=== PATIENT | female | born 1960 | race Caucasian/White ===

== ENCOUNTER → 2020-06-11 12:22 | Outpatient (CLI) | payer OTHER, SELFPAY ==
--- NOTE | ~2020-06-11 | MR_ITS ---
EXAMINATION: MR brain/brain stem wo con DATE: 06/11/2020 13:15 INDICATION: Right arm tingling. Left eye vision loss. TECHNIQUE: Magnetic resonance imaging (MRI) of the brain and brainstem was performed without intraven ous contrast. Sequences included sagittal and axial T1-weighted FSE, axial diffusion-weighted FS EPI, axial T2*-weighted GRE, axial T2-weighted FLAIR Propeller, and axial T2-weighted Propeller. Apparent diffusion coefficient (ADC) maps were created. COMPARISON: Head CT 12/09/2011 FINDINGS: There is an old infarct involving right parietal occipital region. There are scattered area s of low attenuation in the cerebral white matter and cecilia. There is no intracranial hemorrhage, acut e infarction, or abnormal intracranial mass lesion. The ventricles are normal in size. There are like ly changes of ocular lens replacement surgeries. There are bilateral mastoid effusions. IMPRESSION: 1. 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 2. Moderate nonspecific cerebral white matter disease and pontine disease, which likely represents ch ronic small vessel ischemic disease. Reviewed, dictated and finalized at location B. IMPRESSION: 1. 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 2. Moderate nonspecific cerebral white matter disease and pontine disease, whic h likely represents chronic small vessel ischemic disease.
--- NOTE | ~2020-06-11 | CT_ITS ---
EXAMINATION:CT lung screening DATE: 06/11/2020 13:28 INDICATION: Personal history of tobacco dependence. Current smoker with 53 pack year history. TECHNIQUE: Computed tomography (CT) of the chest was performed without intravenous contrast. Automate d exposure control and iterative reconstruction technique were employed. The dose-length product (DLP ) was 84.73 mGy-cm. COMPARISON: CT abdomen and pelvis 04/23/2010 FINDINGS: There is mild emphysema. There is mild atelectasis in right middle lobe. There is a 6 mm pa rt solid nodule in right lower lobe. There is a 4 mm groundglass nodule in right lower lobe. There is a 3 mm nodule in left lower lobe. There is a 2 mm nodule in right upper lobe. No pleural effusion. T he heart size is normal. There are coronary artery calcifications. No pericardial effusion. There is a mildly enlarged right paratracheal lymph node, likely reactive. There is a chronic compression frac ture of T11. There is severe cervical spondylosis and mild thoracic spondylosis. IMPRESSION: 1. Lung-RADS category 2: Benign appearance or behavior. Continue annual screening with noncontrast lo w-dose chest CT in 12 months. Reviewed, dictated and finalized at location B. IMPRESSION: 1. Lung-RADS category 2: Benign appearance or behavior. Continue annual screeni ng with noncontrast low-dose chest CT in 12 months.
== END ==
PROVIDERS: PCP Family Medicine; Visit Provider Family Medicine
DX: Z12.2 Encounter for screening for malignant neoplasm of respiratory organs (principal); Z87.891 Personal history of nicotine dependence; R93.0 Abnormal findings on diagnostic imaging of skull and head, not elsewhere classified
CPT/HCPCS: 70551; G0297

== ENCOUNTER 2022-08-02 11:15 | Emergency (ER) | payer OTHER, SELFPAY ==
--- NOTE | ~2022-08-02 | CT_ITS ---
EXAMINATION: CT thoracic lumbar wo con DATE: 08/02/2022 13:14 INDICATION: Back pain. Fall. TECHNIQUE: Computed tomography (CT) of the thoracic and lumbar spine was performed without intravenou s contrast. Automated exposure control and iterative reconstruction technique were employed. The dose -length product was 978.85 mGy-cm. COMPARISON: CT chest 06/11/2020 FINDINGS: CT THORACIC SPINE: There are small pleural effusions. There is 7 degrees levocurvature of upper thora cic spine. There is a chronic burst fracture of superior endplate of T11 with retropulsion of bone 3 mm into central spinal canal. There is severe cervical spondylosis. There is moderately decreased dis c height at T11-T12 with endplate remodeling. There is multilevel facet joint osteoarthritis, severe bilaterally at T10-T11. On the right, there is mild neural foraminal stenosis at T10-T11. On the left , there is mild neural foraminal stenosis at T10-T11. There is mild central canal stenosis at T10-T11 and T11-T12. CT LUMBAR SPINE: Bone alignment is normal. There is a chronic compression fracture of L3 with 2/5 los s of height centrally. There is mildly decreased disc height at L2-L3. The following disc levels are specifically discussed: L1-L2: The disc does not extend beyond the endplate margin. There is mild right and moderate left fac et joint osteoarthritis. There is no neural foraminal stenosis. There is no central canal stenosis. L2-L3: The disc is bulging. There is severe bilateral facet joint osteoarthritis. There is mild bilat eral neural foraminal stenosis. There is mild central canal stenosis. L3-L4: The disc is bulging. There is severe bilateral facet joint osteoarthritis. There is mild bilat eral neural foraminal stenosis. There is mild central canal stenosis. L4-L5: The disc is bulging. There is severe bilateral facet joint osteoarthritis. There is moderate r ight and mild left neural foraminal stenosis. There is mild central canal stenosis. There is moderate stenosis of the lateral recesses. L5-S1: The disc is bulging. There is severe bilateral facet joint osteoarthritis. There is mild bilat eral neural foraminal stenosis. There is no central canal stenosis. IMPRESSION: 1. Moderate thoracic spondylosis. 2. Moderate lumbar spondylosis. 3. Small pleural effusions. Reviewed, dictated and finalized at location B.
[2022-08-02 11:24] VITALS: BP 144/52; PULSE 85; RESP 18; TEMP 36.7; O2SAT 97
--- NOTE | 2022-08-02 12:38 | ED.BACK ---
HPI - Back Pain/Injury General Chief Complaint: Back Pain/Injury Stated Complaint: back injury Time Seen by Provider: 08/02/22 11:58 History of Present Illness HPI Narrative: This is a 62-year-old female with past medical history of peripheral vascular disease status post bilateral lower extremity [id number] amputations, who presents emergency department complaining of low back pain beginning last night. Patient states she was transferring from her wheelchair to her bed last night when she fell backwards, landing on her bottom and did not strike her head. She denies loss of conscious. This morning shortly after waking, she twisted, felt a pop (her at bedside says he also heard the pop) with immediate pain. The pain has gradually improved, she denies radiation to the legs or loss of control of bowel or bladder. Related Data Allergies Allergy/AdvReac Type Severity Reaction Status Date / Time No Known Allergies Allergy Verified 08/02/22 11:39 Review of Systems Review of Systems: CONSTITUTIONAL: Denies fever, chills, or sweats. CARDIOVASCULAR: Denies chest pain, palpitations, or edema. RESPIRATORY: Denies cough or dyspnea. GASTROINTESTINAL: Denies abdominal pain, nausea, vomiting, or diarrhea. GENITOURINARY: Denies dysuria or hematuria. SKIN: Denies rash or itching. MUSCULOSKELETAL: back pain improving, Denies joint pain, or myalgia. NEUROLOGIC: Denies headache, numbness, dizziness, or weakness. PSYCHIATRIC: Denies anxiety or depression. [facility] Past Medical History Medical History (Updated 08/02/22 @ 22:18 by Stiven Mccray MD) History of left above knee amputation History of right above knee amputation Surgical History Surgical History (Updated 08/02/22 @ 22:23 by Stiven Mccray MD) S/P femoral-femoral bypass surgery Social History Social History (Updated 08/02/22 @ 22:17 by Stiven Mccray MD) Smoking status: Former smoker Alcohol intake: former Substance use: never Comments Surgical history: Lef AKA 2019, Righ AKA 2019 Exam Narrative: GENERAL: Well-appearing, well-nourished, and in no acute distress. HEAD: Normocephalic, atraumatic. EYES: PERRLA and EOMI. ENT: Nares clear, no rhinorrhea or epistaxis. Mucous membranes moist. Oropharynx without tonsillar hypertrophy exudate or other lesions. NECK: Supple. No adenopathy or masses. No carotid bruits or JVD CHEST: Clear to auscultation. No respiratory distress. No wheezes rales or rhonchi HEART: Regular rate and rhythm. No murmur heard. Normal peripheral pulses. ABDOMEN: Soft, nontender, palpable, reducible hernia noted in the epigastrium, normal active bowel sounds. BACK: No midline spine tenderness, no step-off or crepitus to palpation, mild paraspinal tenderness on the left side at approximately L1 EXTREMITIES: Bilateral AKA's with well-healed surgical scars,range of motion at the hips bilaterally. No edema. SKIN: Warm, dry, no rash. NEURO: No focal deficits. Alert and oriented x3. PSYCH: Normal mood and affect. Course Course Emergency Course: 13:39 - CT thoracic and lumbar spine not concerning for fracture. Multiple disc bulges noted with incidental pleural effusion. Discussed findings with the patient and her . Discussed pain control and return precautions including signs/symptoms of spinal cord compression. Patient and her voiced understanding and are comfortable with the plan. All questions answered to their satisfaction. Vital Signs Vital signs: Vital Signs Temperature 98.1 F 08/02/22 11:24 Pulse Rate 85 08/02/22 11:24 Respiratory Rate 18 08/02/22 11:24 Blood Pressure 144/52 H 08/02/22 11:24 Pulse Oximetry 97 08/02/22 11:24 Oxygen Delivery Room Air 08/02/22 11:24 Temperature 98.1 F 08/02/22 11:24 Pulse Rate 85 08/02/22 11:24 Respiratory Rate 18 08/02/22 11:24 Blood Pressure 144/52 H 08/02/22 11:24 Pulse Oximetry 97 08/02/22 11:24 Oxygen Delivery Room Air 1
[2022-08-02] MEDS: LIDOCAINE 5% PATCH 1 PATCH TRANSDERM (13:19)
== END 2022-08-02 14:02 | disposition home or self-care (01) ==
PROVIDERS: Emergency Provider Preventive Medicine Aerospace Medicine; PCP Family Medicine
DX: M54.50 Low back pain, unspecified (principal); M51.36 Other intervertebral disc degeneration, lumbar region; M51.37 Other intervertebral disc degeneration, lumbosacral region; I73.9 Peripheral vascular disease, unspecified; Z89.612 Acquired absence of left leg above knee; Z89.611 Acquired absence of right leg above knee; Z87.891 Personal history of nicotine dependence; M47.816 Spondylosis without myelopathy or radiculopathy, lumbar region; M47.814 Spondylosis without myelopathy or radiculopathy, thoracic region; W05.0XXA Fall from non-moving wheelchair, initial encounter
CPT/HCPCS: 72128; 72131; 99284; A9270

== ENCOUNTER 2022-08-19 00:46 | Inpatient (IN) | payer OTHER, SELFPAY ==
[2022-08-19] VITALS (51 sets, daily range): BP systolic 98–153; BP diastolic 46–82; PULSE 46–82; RESP 12–35; TEMP 36.1–36.6; O2SAT 85–99; BMI 23.1
--- NOTE | ~2022-08-19 | XR_ITS ---
EXAMINATION: XR chest 1V portable INDICATION: Shortness of breath TECHNIQUE: Portable AP chest at 0912 hours COMPARISON: 08/19/2022 FINDINGS: There are persistent but improved interstitial and airspace opacities and lower lung zones. No pleural effusion or pneumothorax. The cardiomediastinal silhouette is normal. IMPRESSION: 1. Improving opacities of the lung bases, consistent with pulmonary edema versus pneumonia versus ate lectasis. Reviewed, dictated and finalized at location F. IMPRESSION: 1. Improving opacities of the lung bases, consistent with pulmonary edema versu s pneumonia versus atelectasis.
--- NOTE | ~2022-08-19 | XR_ITS ---
EXAMINATION: XR chest 1V portable DATE: 08/19/2022 03:59 INDICATION: Shortness of breath. Hypoxia. TECHNIQUE: frontal view of the chest was obtained. COMPARISON: Chest radiograph dated 03/14/16 FINDINGS: Mild increased interstitial and patchy airspace opacities in the bilateral lower lung zones. No pleur al effusion or pneumothorax. The cardiomediastinal silhouette is normal. IMPRESSION: 1. Mild interstitial and airspace opacities in the bilateral lower lung zones which could represent m ild pulmonary edema, pneumonia, atelectasis or some combination thereof. Reviewed, dictated and finalized at location A. IMPRESSION: 1. Mild interstitial and airspace opacities in the bilateral lower lung zones w hich could represent mild pulmonary edema, pneumonia, atelectasis or some combi nation thereof.
--- NOTE | ~2022-08-19 | NM_ITS ---
EXAMINATION: NM pulmonary perfusion DATE: 08/19/2022 15:09 INDICATION: Hypoxia TECHNIQUE: 5.2 mCi Tc-99m MAA by intravenous route. Scintigraphic images of the chest were obtained. COMPARISON: Chest radiograph dated 08/19/2022 FINDINGS: There is relatively homogeneous perfusion throughout the lungs. No discrete perfusion defects identi fied. IMPRESSION: 1. Low probability for pulmonary embolism. Reviewed, dictated and finalized at location A.
--- NOTE | 2022-08-19 01:17 | ECG_ITS ---
Measurements Intervals [place] Rate: 62 P: NM: 0 QRS: 41 QRSD: 89 T: 63 QT: 427 QTc: 436 Interpretive Statements SINUS RHYTHM WITH AV DISSOCIATION AND ACCELERATED JUNCTIONAL ESCAPE RHYTHM ABNORMAL RHYTHM ECG NO PREVIOUS ECG AVAILABLE FOR COMPARISON Electronically Signed On 08-19-2022 14:00:00 CDT by Warren Zhang M.D.
--- NOTE | 2022-08-19 01:47 | ED.SOB ---
HPI - SOB/Dyspnea General Chief Complaint: Shortness of Breath/Dyspnea Stated Complaint: short of breath Time Seen by Provider: 08/19/22 01:46 History of Present Illness HPI Narrative: History primarily obtained by the patient's spouse This is a 62-year-old female past medical history of peripheral vascular disease and diabetes, who presents to the emergency department complaining of shortness of breath for past 3 days. He states over the past 3 days she has had cough productive of sputum without blood, becoming worse today. He denies known sick contacts. States patient has not had any diarrhea or vomiting but has had some chills. The patient complains of shortness of breath but denies chest pain. Related Data Allergies Allergy/AdvReac Type Severity Reaction Status Date / Time No Known Allergies Allergy Verified 08/02/22 11:39 Review of Systems Review of Systems: CONSTITUTIONAL: Denies fever, chills, or sweats. EYES: Denies visual changes, redness, or discharge. ENT: Denies rhinorrhea, congestion, sore throat, or otalgia. CARDIOVASCULAR: Denies chest pain, palpitations, or edema. RESPIRATORY: Cough and dyspnea. GASTROINTESTINAL: Denies abdominal pain, nausea, vomiting, or diarrhea. GENITOURINARY: Denies dysuria or hematuria. SKIN: Denies rash or itching. MUSCULOSKELETAL: Denies back pain, joint pain, or myalgia. NEUROLOGIC: Denies headache, numbness, dizziness, or weakness. PSYCHIATRIC: Denies anxiety or depression. [facility] Past Medical History Medical History History of left above knee amputation History of right above knee amputation Surgical History Surgical History S/P femoral-femoral bypass surgery Social History Social History Smoking status: Former smoker Alcohol intake: former Substance use: never Exam Narrative: GENERAL: Well-developed, well-nourished, in moderate respiratory distress HEAD: Normocephalic, atraumatic. EYES: PERRLA and EOMI. ENT: Nares clear, no rhinorrhea or epistaxis. Mucous membranes moist. Oropharynx without tonsillar hypertrophy exudate or other lesions. NECK: Supple. No adenopathy or masses. No carotid bruits or JVD CHEST: Clear to auscultation. No respiratory distress. No wheezes rales or rhonchi HEART: Regular rate and irregular rhythm. No murmur heard. Normal peripheral pulses. ABDOMEN: Soft, nontender, nondistended, normal active bowel sounds. EXTREMITIES: Bilateral AKA's with well-healed surgical scars, normal range of motion. No edema. SKIN: Warm, dry, no rash. NEURO: No focal deficits. Alert and oriented x3. PSYCH: Normal mood and affect. Course Course Emergency Course: 05:20 - White blood cell count 25. Chest x-ray consistent with pneumonia. An appointment 7 (unknown baseline) sodium slightly decreased at 133. Troponin negative. Patient recently recovered from COVID approximately 3weeks ago. Discussed patient with hospitalist, Dr. Brady who accepts admission. Vital Signs Vital signs: Vital Signs Temperature 97.9 F 08/19/22 00:57 Pulse Rate 62 08/19/22 00:57 Respiratory Rate 20 08/19/22 00:57 Blood Pressure 117/48 L 08/19/22 00:57 Pulse Oximetry 92 08/19/22 00:57 Oxygen Delivery Room Air 08/19/22 00:57 Temperature 97.9 F 08/19/22 00:57 Pulse Rate 59 L 08/19/22 03:46 Respiratory Rate 19 08/19/22 03:46 Blood Pressure 127/76 08/19/22 04:46 Pulse Oximetry 96 08/19/22 04:47 Oxygen Delivery Nasal Cannula 08/19/22 02:31 Oxygen Flow Rate 6 08/19/22 02:31 MDM - SOB/Dyspnea MDM Narrative Medical decision making narrative: Plan: Labs, antibiotics, imaging, troponin, EKG, reassess Differential Diagnosis Differential diagnosis: Likely community acquired pneumonia, pulmonary embolism and other (COVID, flu, ACS, other) Lab Data Result diagrams:
--- NOTE | 2022-08-19 02:36 | PC.NURSE ---
Refusing second set of blood cultures at this time. Dr Mccray aware. No new orders received.
[2022-08-19 03:59] LABS: Basophils Absolute Auto 0.1 K/mm3 (0.0-0.1); Basophils Percent Auto 0.5 % (0.2-1.2); Eosinophils Absolute Auto 0.4 K/mm3 (0-0.3); Eosinophils Percent Auto 1.4 % (0-4.4); Hematocrit 27.9 % (37.0-47.0); Hemoglobin 9.1 g/dL (12.0-15.0); Immature Granulocyte Absolute 0.19 K/mm3 (0.00-0.031); Immature Granulocyte Percent A 0.7 % (0-0.5); Lymphocytes Absolute Auto 1.82 K/mm3 (0.9-3.2); Lymphocytes Percent Auto 7.1 % (18.3-44.2); Mean Corpuscular HGB Conc 32.6 g/dl (32-36); Mean Corpuscular Hemoglobin 29.9 pg (26-34); Mean Corpuscular Volume 91.8 fl (80-100); Mean Platelet Volume 8.2 fl (7.4-10.4); Monocytes Absolute Auto 1.9 K/mm3 (0.1-0.6); Monocytes Percent Auto 7.3 % (2.6-8.5); Neutrophils Absolute Auto 21.4 K/mm3 (1.3-6.7); Platelet Count Result 520 k/mm3 (150-375); Red Blood Count 3.04 M/mm3 (4.2-5.4); Red Cell Distribution Width 14.6 % (11.5-14.5); White Blood Count 25.8 K/mm3 (4.5-10.0)
[2022-08-19 04:27] LABS: INR 1.2; Prothrombin Time 14.6 Seconds (11.1-14.7)
[2022-08-19 04:28] LABS: Partial Thromboplastin Time 38.6 SECONDS (22.3-36.8)
[2022-08-19 04:29] LABS: Anion Gap 13 mmol/L (8-16); Aspartate Amino Transferase 28 U/L (14-36); Bilirubin,Total 0.2 mg/dL (0.2-1.3); Blood Urea Nitrogen 31 mg/dL (7-17); Calcium 8.8 mg/dL (8.4-10.2); Carbon Dioxide 24 mmol/L (22-30); Chloride 96 mmol/L (98-107); Estimated CRCL calculation 30 ml/min; Estimated Glomerular Filt Rate 31; Glucose 114 mg/dL (65-110); Sodium 133 mmol/L (137-145)
[2022-08-19 04:30] LABS: Alanine Aminotransferase 22 U/L (6-35); Albumin Level 3.7 g/dL (3.5-5.1); Alkaline Phosphatase 139 U/L (38-126)
[2022-08-19 04:49] LABS: Troponin I < 0.012 ng/mL (0.000-0.034)
--- NOTE | 2022-08-19 05:39 | PC.NURSE ---
noted patient states she had covid in the end of may which is less then 90 days from today no covid swab obtained
[2022-08-19 06:02] LABS: Lactic Acid Reflex 0.9 mmol/L (0.7-2.0)
[2022-08-19] MEDS: ALBUTEROL SULFATE NEB 2.5 MG/3 ML INH 5 MG INHALATION ×4 (06:52→21:27)
--- NOTE | 2022-08-19 07:09 | ADMGEN ---
This patient, Pamela Plata, was admitted to 3 [facility] Surg Room 307-01. Patient/family oriented to hospital policies and general routines including ID bracelet, bed and alarms, visiting hours, pain management, procedures, bathroom and other care routines, personal items, smoking policy, room service/diet, and visiting hours. Information on how to activate the Rapid Response Team has been discussed. Patient/Family are encouraged to report perceived risks to care and to ask questions if they do not understand what they are told or what they should do.
--- NOTE | 2022-08-19 08:27 | ECG_ITS ---
Measurements Intervals [place] Rate: 47 P: 91 [place]: 170 QRS: 72 QRSD: 91 T: 75 QT: 479 QTc: 425 Interpretive Statements SINUS BRADYCARDIA COMPARED TO ECG 08/19/2022 01:32:33 AV DISSOCIATION HAS RESOLVED Electronically Signed On 08-19-2022 14:05:46 CDT by Warren Zhang M.D.
[2022-08-19 08:37] LABS: Glucose Point of Care 110 mg/dl (65-105)
[2022-08-19 09:42] LABS: Influenza A QL RT-PCR Negative (Negative); Influenza B QL RT-PCR Negative (Negative); SARS-CoV-2 RNA PCR Negative
[2022-08-19] MEDS: TOLNAFTATE 1% POWDER 45 GM BTL 1 APPLIC TOPICAL (12:44)
--- NOTE | 2022-08-19 13:04 | PM.IMHP ---
H&P: HPI History of Present Illness Date/Time: 08/19/22 13:04 Chief Complaint: shortness of breath Narrative: This is a 62-year-old female With past medical history of peripheral vascular disease status post bilateral AKA presents to the ED with shortness of breath past there some and having cough with productive sputum. Denies any sick contact. No fever or chills. She was in moderate respiratory distress yesterday but feeling much better today. See was also wheezy. She does have history of underlying COPD due to longstanding history of smoking past. She is not smoking currently. She denies any chest pain. Review of Systems Review of Systems: - CONSTITUTIONAL: Denies weight loss, fever and chills. - HEENT: Denies changes in vision and hearing - RESPIRATORY: reports SOB and cough. - CV: Denies palpitations and CP. - GI: Denies abdominal pain, nausea, vomiting and diarrhea. - : Denies dysuria and urinary frequency. - MSK: Denies myalgia and joint pain. - SKIN: Denies rash and pruritus. - NEUROLOGICAL: Denies headache and syncope. - PSYCHIATRIC: Denies recent changes in mood. Denies anxiety and depression. [facility] Past Medical History Medical History (Updated 08/19/22 @ 13:06 by Norbert Romano MD) History of left above knee amputation History of right above knee amputation Surgical History Surgical History (Updated 08/19/22 @ 13:06 by Norbert Romano MD) S/P femoral-femoral bypass surgery Social History Social History Smoking status: Former smoker Alcohol intake: former Substance use: current Substance use type: marijuana Other substance usage details: maribel Spiritual care concerns: No Has the Lack of Transportation Kept You From Medical Appointments or From Getting Medications?: No Within the Past 12 Months, Were You Worried Whether Your Food Would Run Out Before You Got Money to Buy More?: Never True What is Your Housing Situation Today?: I Have Housing Are You Worried That in the Next 2 Months, You May Not Have Your Own Housing to Live In?: No Do You Have Trouble Paying Your Heating Or Electricity Bill?: No Do You Have Trouble Paying For Medicines?: No Are You Currently Unemployed and Looking for Work?: No Highest Level of Education Completed: High School Diploma/GED Do You Have Trouble With Childcare or the Care of a Family Member?: No Meds Home Medications and Allergies Home Medications Medication Instructions Recorded Confirmed Type lidocaine 5 % topical patch 1 patch topical DAILY #15 ea 08/02/22 Rx (Lidoderm) Allergies Allergy/AdvReac Type Severity Reaction Status Date / Time No Known Allergies Allergy Verified 08/02/22 11:39 Vital Signs Vital Signs - 24 hr 08/19/22 00:57 08/19/22 01:13 08/19/22 01:14 Temperature 97.9 F Pulse Rate 62 62 Respiratory Rate 20 19 Blood Pressure 117/48 L Pulse Oximetry 92 85 L 90 Oxygen Delivery Room Air Nasal Cannula Oxygen Flow Rate 5 08/19/22 01:16 08/19/22 02:31 08/19/22 01:32 Temperature Pulse Rate 62 Respiratory Rate Blood Pressure Pulse Oximetry 91 94 Oxygen Delivery Nasal Cannula Nasal Cannula Oxygen Flow Rate 5 6 08/19/22 01:24 08/19/22 01:30 08/19/22 02:30 Temperature Pulse Rate 62 62 56 L Respiratory Rate 22 H 20 14 Blood Pressure 99/59 L 102/62 Pulse Oximetry 89 L 89 L Oxygen Delivery Oxygen Flow Rate 08/19/22 02:43 08/19/22 01:22 08/19/22 01:23 Temperature Pulse Rate 59 L 59 L 61 Respiratory Rate 15 23 H 22 H Blood Pressure Pulse Oximetry 90 89 L Oxygen Delivery Oxygen Flow Rate 08/19/22 01:25 08/19/22 01:37 08/19/22 01:45 Temperature Pulse Rate 61 64 59 L Respiratory Rate 18 19 18 Blood Pressure 99/59 L Pulse Oximetry 90 Oxygen Delivery Oxygen Flow Rate 08/19/22 02:01 08/19/22 02:15 08/19/22 02:32 Temperature
[2022-08-19 16:56] LABS: NT Pro B Type Natriuretic Pept 5720 pg/mL (5-100)
[2022-08-19] MEDS: GABAPENTIN 300 MG CAPSULE PO (17:09)
[2022-08-19] MEDS: POTASSIUM CHLORIDE 20 MEQ TABLET.ER PO (17:10)
[2022-08-19] MEDS: carvediloL 12.5 MG TABLET PO (17:11)
[2022-08-19] MEDS: MAGNESIUM OXIDE 400 MG TABLET PO (17:11)
[2022-08-19] MEDS: FUROSEMIDE INJ 40 MG/4 ML VIAL IV PUSH (18:16)
[2022-08-19] MEDS: ATORVASTATIN 40 MG TABLET 80 MG PO (20:27)
[2022-08-20] VITALS (18 sets, daily range): BP systolic 105–140; BP diastolic 61–82; PULSE 51–88; RESP 16–20; TEMP 36.1–36.6; O2SAT 94–100
[2022-08-20] MEDS: ALBUTEROL SULFATE NEB 2.5 MG/3 ML INH 5 MG INHALATION ×4 (03:43→20:50)
[2022-08-20] MEDS: TOLNAFTATE 1% POWDER 45 GM BTL 1 APPLIC TOPICAL ×3 (06:01→21:20)
[2022-08-20] MEDS: IPRATROPIUM BR 0.02% INH SOLN 0.5 MG/2.5 ML VIAL INHALATION (08:17)
[2022-08-20] MEDS: GABAPENTIN 300 MG CAPSULE PO ×2 (09:38→17:25)
[2022-08-20] MEDS: FUROSEMIDE 40 MG TABLET PO (09:39)
[2022-08-20] MEDS: carvediloL 12.5 MG TABLET PO ×2 (09:39→17:24)
[2022-08-20] MEDS: POTASSIUM CHLORIDE 20 MEQ TABLET.ER PO ×2 (09:39→17:25)
[2022-08-20] MEDS: MAGNESIUM OXIDE 400 MG TABLET PO ×2 (09:39→17:25)
[2022-08-20] MEDS: ENOXAPARIN 30 MG/0.3 ML SYRINGE SUB-Q (09:39)
[2022-08-20] MEDS: LEVOTHYROXINE SODIUM 50 MCG TABLET PO (09:39)
[2022-08-20] MEDS: FOLIC ACID 1 MG TABLET PO (09:40)
[2022-08-20] MEDS: FERROUS SULFATE 324 MG TABLET PO (09:40)
[2022-08-20 12:36] LABS: Basophils Absolute Auto 0.1 K/mm3 (0.0-0.1); Basophils Percent Auto 0.7 % (0.2-1.2); Eosinophils Absolute Auto 0.2 K/mm3 (0-0.3); Eosinophils Percent Auto 1.8 % (0-4.4); Hematocrit 29.9 % (37.0-47.0); Hemoglobin 9.6 g/dL (12.0-15.0); Immature Granulocyte Absolute 0.09 K/mm3 (0.00-0.031); Immature Granulocyte Percent A 0.7 % (0-0.5); Lymphocytes Absolute Auto 1.23 K/mm3 (0.9-3.2); Lymphocytes Percent Auto 10.1 % (18.3-44.2); Mean Corpuscular HGB Conc 32.1 g/dl (32-36); Mean Corpuscular Hemoglobin 29.8 pg (26-34); Mean Corpuscular Volume 92.9 fl (80-100); Mean Platelet Volume 7.9 fl (7.4-10.4); Monocytes Absolute Auto 1.1 K/mm3 (0.1-0.6); Monocytes Percent Auto 8.7 % (2.6-8.5); Neutrophils Absolute Auto 9.4 K/mm3 (1.3-6.7); Platelet Count Result 445 k/mm3 (150-375); Red Blood Count 3.22 M/mm3 (4.2-5.4); Red Cell Distribution Width 14.4 % (11.5-14.5); White Blood Count 12.1 K/mm3 (4.5-10.0)
[2022-08-20 12:46] LABS: Alanine Aminotransferase 28 U/L (6-35); Albumin Level 3.6 g/dL (3.5-5.1); Alkaline Phosphatase 118 U/L (38-126); Anion Gap 13 mmol/L (8-16); Aspartate Amino Transferase 30 U/L (14-36); Bilirubin,Total 0.2 mg/dL (0.2-1.3); Blood Urea Nitrogen 24 mg/dL (7-17); Calcium 8.8 mg/dL (8.4-10.2); Carbon Dioxide 25 mmol/L (22-30); Chloride 97 mmol/L (98-107); Estimated CRCL calculation 41 ml/min; Estimated Glomerular Filt Rate 50; Glucose 120 mg/dL (65-110); Potassium 3.2 mmol/L (3.4-5.0); Sodium 135 mmol/L (137-145)
--- NOTE | 2022-08-20 15:12 | PM.IMPN ---
Progress Note: A&P Assessment and Plan (1) Community acquired pneumonia: Code(s): J18.9 - Pneumonia, unspecified organism Status: Acute (2) Hypoxia: Code(s): R09.02 - Hypoxemia Status: Acute (3) History of right above knee amputation: Code(s): Z89.611 - Acquired absence of right leg above knee Status: Acute (4) History of left above knee amputation: Code(s): Z89.612 - Acquired absence of left leg above knee Status: Acute (5) S/P femoral-femoral bypass surgery: Code(s): Z95.828 - Presence of other vascular implants and grafts Status: Acute (6) Type 2 diabetes mellitus: Code(s): E11.9 - Type 2 diabetes mellitus without complications Status: Acute (7) Peripheral vascular disease: Code(s): I73.9 - Peripheral vascular disease, unspecified Status: Acute Plan acute hypoxic respiratory failure: WBC count elevated with chest x-ray showing mild interstitial airspace opacities bilateral lower could represent mild pulmonary edema pneumonia atelectasis or combination. BNP checked which came back elevated at 5000. She was started on antibiotics for community-acquired pneumonia also added vancomycin due to her history of MRSA infection. WBC count quite elevated at 25,000 five thousand on admission. She has refused for the labs but upon further counseling and discussion she is agreeable. Continue on antibiotics currently. Blood cultures no growth to date. Continue to follow. Hit she is advised will need to continue to monitor blood culture and monitor labs to ensure improvement in further tapering of her antibiotics for her underlying pneumonia. She also received 1 dose of Lasix with good diuresis for elevated BNP and possible congestion/mild pulmonary edema on chest x-ray. Hypoxia needing oxygen supplementation by nasal cannula. Currently a 7 L oxygen. V/Q scan came back low probability. WBC count improved down to 12,000 today. Renal function creatinine clearance of 30 creatinine 1.7. Lactic acid is normal, Troponin is negative. Influenza and COVID swab came negative. Renal function improved down to 1.1 today. Peripheral vascular disease status post bypass surgery Chronic anemia stable at 9.6 no signs of bleeding. Unknown baseline level Bilateral AKA DVT prophylaxis Lovenox Code status full code Subjective Date/time seen: 08/20/22 15:12 Interval history: HPI:This is a 62-year-old female With past medical history of peripheral vascular disease status post bilateral AKA presents to the ED with shortness of breath past there some and having cough with productive sputum.? Denies any sick contact.? No fever or chills.? She was in moderate respiratory distress yesterday but feeling much better today.? See was also wheezy.? She does have history of underlying COPD due to longstanding history of smoking past.? She is not smoking currently.? She denies any chest pain. 08/20/2022 patient refused any further steak for lab. Initially was requesting for midline/PICC line placement. Reviewed risks and benefits with the patient and the was at bedside. She had rather complicated history in the past with history of MRSA infection offer vascular graft for her underlying history of peripheral vascular disease that needed removal. Her IV line has also infiltrated and needs a new 1. She however feels lot better she is off oxygen today and feels much better. She states she is ready to go home. She does have cough. Review of Systems Review of Systems: All systems reviewed & are unremarkable except as noted in HPI and below Exam Narrative: GENERAL: Well-developed, well-nourished, in No acute distress HEAD: Normocephalic, atraumatic. EYES: PERRLA and EOMI. ENT: Nares clear, no rhinorrhea or epistaxis.? Mucous membranes moist. NECK: Supple.? No adenopathy or masses.? No carotid bruits or JVD CHEST: Equal air entry bilaterally, clear to auscultation No resp
[2022-08-20] MEDS: POTASSIUM CHLORIDE 20 MEQ TABLET 40 MEQ PO (15:33)
[2022-08-20] MEDS: ATORVASTATIN 40 MG TABLET 80 MG PO (21:19)
[2022-08-21] VITALS (23 sets, daily range): BP systolic 90–144; BP diastolic 47–90; PULSE 51–71; RESP 16–20; TEMP 35.5–36.8; O2SAT 92–96
[2022-08-21] MEDS: ALBUTEROL SULFATE NEB 2.5 MG/3 ML INH 5 MG INHALATION ×4 (02:46→20:51)
[2022-08-21] MEDS: LEVOTHYROXINE SODIUM 50 MCG TABLET PO (05:54)
[2022-08-21] MEDS: GABAPENTIN 300 MG CAPSULE PO ×2 (06:04→17:16)
[2022-08-21 06:36] LABS: Basophils Absolute Auto 0.1 K/mm3 (0.0-0.1); Basophils Percent Auto 0.8 % (0.2-1.2); Eosinophils Absolute Auto 0.4 K/mm3 (0-0.3); Eosinophils Percent Auto 3.1 % (0-4.4); Hematocrit 29.9 % (37.0-47.0); Hemoglobin 9.6 g/dL (12.0-15.0); Immature Granulocyte Absolute 0.12 K/mm3 (0.00-0.031); Immature Granulocyte Percent A 0.9 % (0-0.5); Lymphocytes Absolute Auto 1.92 K/mm3 (0.9-3.2); Lymphocytes Percent Auto 14.5 % (18.3-44.2); Mean Corpuscular HGB Conc 32.1 g/dl (32-36); Mean Corpuscular Volume 93.4 fl (80-100); Monocytes Absolute Auto 1.3 K/mm3 (0.1-0.6); Monocytes Percent Auto 10.1 % (2.6-8.5); Neutrophils Absolute Auto 9.4 K/mm3 (1.3-6.7); Neutrophils Percent Auto 70.6 % (45.5-73.1); Platelet Count Result 488 k/mm3 (150-375); Red Cell Distribution Width 14.6 % (11.5-14.5); White Blood Count 13.3 K/mm3 (4.5-10.0)
[2022-08-21 06:49] LABS: Alanine Aminotransferase 30 U/L (6-35); Albumin Level 3.5 g/dL (3.5-5.1); Alkaline Phosphatase 132 U/L (38-126); Anion Gap 9 mmol/L (8-16); Aspartate Amino Transferase 38 U/L (14-36); Bilirubin,Total 0.2 mg/dL (0.2-1.3); Blood Urea Nitrogen 29 mg/dL (7-17); Calcium 9.2 mg/dL (8.4-10.2); Carbon Dioxide 26 mmol/L (22-30); Chloride 100 mmol/L (98-107); Estimated CRCL calculation 41 ml/min; Estimated Glomerular Filt Rate 50; Glucose 115 mg/dL (65-110); Magnesium 1.8 mg/dL (1.6-2.3); Potassium 4.6 mmol/L (3.4-5.0); Sodium 135 mmol/L (137-145)
[2022-08-21] MEDS: carvediloL 12.5 MG TABLET PO ×2 (08:42→17:16)
[2022-08-21] MEDS: FERROUS SULFATE 324 MG TABLET PO (08:43)
[2022-08-21] MEDS: FUROSEMIDE 40 MG TABLET PO (08:43)
[2022-08-21] MEDS: MAGNESIUM OXIDE 400 MG TABLET PO ×2 (08:43→17:16)
[2022-08-21] MEDS: POTASSIUM CHLORIDE 20 MEQ TABLET.ER PO ×2 (08:43→17:16)
[2022-08-21] MEDS: ENOXAPARIN 30 MG/0.3 ML SYRINGE SUB-Q (08:43)
[2022-08-21] MEDS: FOLIC ACID 1 MG TABLET PO (08:43)
[2022-08-21] MEDS: TOLNAFTATE 1% POWDER 45 GM BTL 1 APPLIC TOPICAL ×2 (08:54→21:10)
--- NOTE | 2022-08-21 13:45 | PM.IMPN ---
Progress Note: A&P Assessment and Plan (1) Community acquired pneumonia: Code(s): J18.9 - Pneumonia, unspecified organism Status: Acute (2) Hypoxia: Code(s): R09.02 - Hypoxemia Status: Acute (3) History of right above knee amputation: Code(s): Z89.611 - Acquired absence of right leg above knee Status: Acute (4) History of left above knee amputation: Code(s): Z89.612 - Acquired absence of left leg above knee Status: Acute (5) S/P femoral-femoral bypass surgery: Code(s): Z95.828 - Presence of other vascular implants and grafts Status: Acute (6) Type 2 diabetes mellitus: Code(s): E11.9 - Type 2 diabetes mellitus without complications Status: Acute (7) Peripheral vascular disease: Code(s): I73.9 - Peripheral vascular disease, unspecified Status: Acute Plan acute hypoxic respiratory failure: WBC count elevated with chest x-ray showing mild interstitial airspace opacities bilateral lower could represent mild pulmonary edema pneumonia atelectasis or combination. BNP checked which came back elevated at 5000. She was started on antibiotics for community-acquired pneumonia also added vancomycin due to her history of MRSA infection. WBC count quite elevated at 25,000 five thousand on admission. She has refused for the labs but upon further counseling and discussion she is agreeable. Continue on antibiotics currently. Blood cultures no growth to date. Continue to follow. Hit she is advised will need to continue to monitor blood culture and monitor labs to ensure improvement in further tapering of her antibiotics for her underlying pneumonia. WBC count continues to improve but stable today. Will monitor culture report still and continue current medication. Chest x-ray formal read pending but looks much improved compared to on admission. She also received 1 dose of Lasix with good diuresis for elevated BNP and possible congestion/mild pulmonary edema on chest x-ray. Hypoxia needing oxygen supplementation by nasal cannula. Currently a 7 L oxygen. V/Q scan came back low probability. Currently off oxygen now WBC count improved down to 12,000 today. Renal function creatinine clearance of 30 creatinine 1.7. Lactic acid is normal, Troponin is negative. Influenza and COVID swab came negative. Renal function improved down to 1.1 today. Peripheral vascular disease status post bypass surgery Chronic anemia stable at 9.6 no signs of bleeding. Unknown baseline level Bilateral AKA DVT prophylaxis Lovenox Code status full code Subjective Date/time seen: 08/21/22 13:45 Interval history: HPI:This is a 62-year-old female With past medical history of peripheral vascular disease status post bilateral AKA presents to the ED with shortness of breath past there some and having cough with productive sputum.? Denies any sick contact.? No fever or chills.? She was in moderate respiratory distress yesterday but feeling much better today.? See was also wheezy.? She does have history of underlying COPD due to longstanding history of smoking past.? She is not smoking currently.? She denies any chest pain. 08/20/2022 patient refused any further stick for lab. Initially was requesting for midline/PICC line placement. Reviewed risks and benefits with the patient and the was at bedside. She had rather complicated history in the past with history of MRSA infection offer vascular graft for her underlying history of peripheral vascular disease that needed removal. Her IV line has also infiltrated and needs a new 1. She however feels lot better she is off oxygen today and feels much better. She states she is ready to go home. She does have cough. 08/21/2022: No overnight events. She has been off oxygen since yesterday. Has some cough but has overall improved. She denies any shortness of breath today. Review of Systems Review of Systems: All systems reviewed & are unr
[2022-08-21] MEDS: ATORVASTATIN 40 MG TABLET 80 MG PO (21:05)
[2022-08-22] VITALS (13 sets, daily range): BP systolic 121–160; BP diastolic 56–63; PULSE 49–69; RESP 16–24; TEMP 36.1–36.3; O2SAT 93–95
[2022-08-22] MEDS: ALBUTEROL SULFATE NEB 2.5 MG/3 ML INH 5 MG INHALATION ×3 (02:27→13:59)
[2022-08-22] MEDS: oxyCODONE HCL (*CRX) 5 MG TAB IR 10 MG PO (03:50)
[2022-08-22] MEDS: LEVOTHYROXINE SODIUM 50 MCG TABLET PO (06:13)
[2022-08-22 07:07] LABS: Basophils Absolute Auto 0.1 K/mm3 (0.0-0.1); Basophils Percent Auto 0.9 % (0.2-1.2); Eosinophils Absolute Auto 0.5 K/mm3 (0-0.3); Eosinophils Percent Auto 3.7 % (0-4.4); Hemoglobin 9.1 g/dL (12.0-15.0); Immature Granulocyte Absolute 0.13 K/mm3 (0.00-0.031); Lymphocytes Absolute Auto 2.05 K/mm3 (0.9-3.2); Lymphocytes Percent Auto 15.9 % (18.3-44.2); Mean Corpuscular HGB Conc 31.4 g/dl (32-36); Mean Corpuscular Hemoglobin 29.9 pg (26-34); Mean Corpuscular Volume 95.4 fl (80-100); Monocytes Absolute Auto 1.5 K/mm3 (0.1-0.6); Monocytes Percent Auto 11.6 % (2.6-8.5); Neutrophils Absolute Auto 8.6 K/mm3 (1.3-6.7); Neutrophils Percent Auto 66.9 % (45.5-73.1); Platelet Count Result 477 k/mm3 (150-375); Red Blood Count 3.04 M/mm3 (4.2-5.4); Red Cell Distribution Width 14.7 % (11.5-14.5); White Blood Count 12.9 K/mm3 (4.5-10.0)
[2022-08-22 07:36] LABS: Alanine Aminotransferase 33 U/L (6-35); Albumin Level 3.5 g/dL (3.5-5.1); Alkaline Phosphatase 135 U/L (38-126); Anion Gap 10 mmol/L (8-16); Aspartate Amino Transferase 37 U/L (14-36); Bilirubin,Total 0.3 mg/dL (0.2-1.3); Blood Urea Nitrogen 22 mg/dL (7-17); Calcium 9.1 mg/dL (8.4-10.2); Carbon Dioxide 27 mmol/L (22-30); Chloride 99 mmol/L (98-107); Estimated CRCL calculation 45 ml/min; Estimated Glomerular Filt Rate 56; Glucose 106 mg/dL (65-110); Potassium 4.7 mmol/L (3.4-5.0); Sodium 136 mmol/L (137-145)
[2022-08-22] MEDS: ENOXAPARIN 30 MG/0.3 ML SYRINGE SUB-Q (09:15)
[2022-08-22] MEDS: POTASSIUM CHLORIDE 20 MEQ TABLET.ER PO (09:15)
[2022-08-22] MEDS: FUROSEMIDE 40 MG TABLET PO (09:16)
[2022-08-22] MEDS: MAGNESIUM OXIDE 400 MG TABLET PO (09:16)
[2022-08-22] MEDS: FERROUS SULFATE 324 MG TABLET PO (09:16)
[2022-08-22] MEDS: GABAPENTIN 300 MG CAPSULE PO (09:16)
[2022-08-22] MEDS: carvediloL 12.5 MG TABLET PO (09:16)
[2022-08-22] MEDS: FOLIC ACID 1 MG TABLET PO (09:16)
--- NOTE | 2022-08-22 11:48 | PM.DS ---
DS: Admitting Diagnosis Discharge Date 08/22/2022 Admitting Diagnosis shortness of breath DS: Discharge Diagnosis Discharge Diagnosis (1) Community acquired pneumonia: Code(s): J18.9 - Pneumonia, unspecified organism Status: Acute (2) Hypoxia: Code(s): R09.02 - Hypoxemia Status: Acute (3) History of right above knee amputation: Code(s): Z89.611 - Acquired absence of right leg above knee Status: Acute (4) History of left above knee amputation: Code(s): Z89.612 - Acquired absence of left leg above knee Status: Acute (5) S/P femoral-femoral bypass surgery: Code(s): Z95.828 - Presence of other vascular implants and grafts Status: Acute (6) Type 2 diabetes mellitus: Code(s): E11.9 - Type 2 diabetes mellitus without complications Status: Acute (7) Peripheral vascular disease: Code(s): I73.9 - Peripheral vascular disease, unspecified Status: Acute DS: Summary Hospital Course Hospital Course: # acute hypoxic respiratory failure:? WBC count elevated at 25,000 with chest x-ray showing mild interstitial airspace opacities bilateral lower could represent mild pulmonary edema pneumonia atelectasis or combination.? BNP checked which came back elevated at 5000.? She was started on antibiotics for community-acquired pneumonia also added vancomycin due to her history of MRSA infection.? WBC count quite elevated at 25,000 five thousand on admission.? She has refused for the labs but upon further counseling and discussion she is agreeable.? she was continued on antibiotics for her pneumonia. Chest x-ray follow-up noted improving opacities. She also received 1 dose of IV Lasix which was followed by oral Lasix at her home doses. Blood culture x1 was obtained on admission another step was refused by the patient. One set of blood culture that was obtained in the ED admission remained negative. Vancomycin was discontinued. her WBC count also improved down to [id number] with the time of discharge. Her antibiotic was switched to Omnicef at discharge and to follow-up with PCP in 1 week sooner if needed. she was requiring 7 L oxygen on arrival to the ED which was quickly tapered down. She remained off oxygen for more than 24 hours prior to the discharge. V/Q scan was done which came back as low probability. This was done as initial creatinine was 1.7. Troponin was negative as well. Influenza and COVID swab came negative.? YOHANNES likely related to infection resolved during the hospital stay Peripheral vascular disease status post bypass surgery Chronic anemia stable at 9.6 no signs of bleeding. remained stable throughout the hospital stay Bilateral AKA DVT prophylaxis Lovenox Code status full code Time Spent with Patient Time attestation: Total time spent providing and/or coordinating discharge services: 50 minutes Exam Narrative: GENERAL: Well-developed, well-nourished, in No acute distress HEAD: Normocephalic, atraumatic. EYES: PERRLA and EOMI. ENT: Nares clear, no rhinorrhea or epistaxis.? Mucous membranes moist. NECK: Supple.? No adenopathy or masses.? No carotid bruits or JVD CHEST: Equal air entry bilaterally, clear to auscultation No respiratory distress. HEART: Regular rate and irregular rhythm.? No murmur heard.? Normal peripheral pulses. ABDOMEN: Soft, nontender, nondistended, normal active bowel sounds. EXTREMITIES: Bilateral AKA's with well-healed surgical scars, normal range of motion.? No edema. SKIN: Warm, dry, no rash. NEURO: No focal deficits.? Alert and oriented x3. PSYCH: Normal mood and affect. DS: Data Data Completed and Pending Labs on day of discharge: Labs from last 24 hours 08/22/22 08/22/22 06:31 06:30 WBC 12.9 H RBC 3.04 L Hgb 9.1 L Hct 29.0 L MCV 95.4 MCH 29.9 MCHC 31.4 L RDW 14.7 H Plt Count 477 H MPV 8.0 Immature Gran % (Auto) 1.0 H Neut % (Auto) 66.9 Lymph % (Auto) 15.9 L Kendall % (A
== END 2022-08-22 15:10 | disposition home or self-care (01) | DRG 193 ==
LOC: ANHED 06:46 → ANH3MEDSUR 07:06
PROVIDERS: Admitting Provider Internal Medicine; Emergency Provider Preventive Medicine Aerospace Medicine; PCP Family Medicine; Visit Provider Internal Medicine
DX: J18.9 Pneumonia, unspecified organism (principal); J96.01 Acute respiratory failure with hypoxia; J44.0 Chronic obstructive pulmonary disease with (acute) lower respiratory infection; I73.9 Peripheral vascular disease, unspecified; E11.9 Type 2 diabetes mellitus without complications; D64.9 Anemia, unspecified; Z20.822 Contact with and (suspected) exposure to COVID-19; Z89.611 Acquired absence of right leg above knee; Z89.612 Acquired absence of left leg above knee; Z95.828 Presence of other vascular implants and grafts; Z87.891 Personal history of nicotine dependence; Z86.16 Personal history of COVID-19
CPT/HCPCS: 36415; 71045; 78580; 80053; 82565; 82948; 83605; 83735; 83880; 84484; 85025; 85610; 85730; 87040; 87502; 93005; 94640; 99285; A9270; A9540; C9803; G0378; J0456; J0692; J1650; J1940; J3370; U0003; U0005

== ENCOUNTER 2023-03-31 09:57 | Emergency (ER) | payer OTHER, SELFPAY ==
[2023-03-31 10:03] VITALS: BP 139/49; PULSE 45; RESP 20; TEMP 36.5; O2SAT 91
--- NOTE | 2023-03-31 11:43 | ED.GENADULT ---
HPI - General Adult General Chief complaint: Skin/Abscess/Foreign Body Stated complaint: blister to Right hand. Time Seen by Provider: 03/31/23 10:40 History of Present Illness HPI narrative: Pamela Plata is a 62 y/o female who presents with reports being out in the sun a few days ago and her right hand got sun burnt. She reports she was on antibiotics and steroids for an upper respiratory infection that she has since finished. She denies numbness/ tingling to area. Denies any fever/chills Related Data Home Medications Medication Instructions Recorded Confirmed atorvastatin 80 mg tablet 80 mg PO HS 08/19/22 08/19/22 carvedilol 12.5 mg tablet 12.5 mg PO BID 08/19/22 08/19/22 diltiazem HCl 240 mg 480 mg PO DAILY 08/19/22 08/19/22 capsule,extended release 24 hr ferrous sulfate 325 mg (65 mg 325 mg PO DAILY 08/19/22 08/19/22 iron) tablet (FeroSul) folic acid 1 mg tablet 1 mg PO DAILY 08/19/22 08/19/22 furosemide 40 mg tablet 40 mg PO DAILY 08/19/22 08/19/22 gabapentin 300 mg capsule 300 mg PO BID 08/19/22 08/19/22 ipratropium 0.5 mg-albuterol 3 mg 3 ml inhalation BID PRN shortness 08/19/22 08/19/22 (2.5 mg base)/3 mL nebulization of breath soln levothyroxine 50 mcg tablet 50 mcg PO DAILY 08/19/22 08/19/22 magnesium oxide 400 mg (241.3 mg 400 mg PO BID 08/19/22 08/19/22 magnesium) tablet oxycodone 10 mg tablet 10 mg PO Q4H PRN Pain 08/19/22 08/19/22 potassium chloride 20 mEq 20 meq PO BID 08/19/22 08/19/22 tablet,extended release Allergies Allergy/AdvReac Type Severity Reaction Status Date / Time No Known Allergies Allergy Verified 08/02/22 11:39 Review of Systems Review of Systems: CONSTITUTIONAL: Denies fever, chills, or sweats. EYES: Denies visual changes, redness, or discharge. ENT: Denies rhinorrhea, congestion, sore throat, or otalgia. CARDIOVASCULAR: Denies chest pain, palpitations, or edema. RESPIRATORY: Denies cough or dyspnea. GASTROINTESTINAL: Denies abdominal pain, nausea, vomiting, or diarrhea. GENITOURINARY: Denies dysuria or hematuria. SKIN: pain redness to right hand MUSCULOSKELETAL: Denies back pain, joint pain, or myalgia. NEUROLOGIC: Denies headache, numbness, dizziness, or weakness. PSYCHIATRIC: Denies anxiety or depression. [facility] Past Medical History Medical History History of left above knee amputation History of right above knee amputation Surgical History Surgical History S/P femoral-femoral bypass surgery Social History Social History Smoking status: Former smoker Alcohol intake: former Substance use: current Substance use type: marijuana Other substance usage details: gummies Lack of Transportation: No Lack of Food: Never True Current Housing: I Have Housing Concerned About Future Housing: No Difficulty Paying Gas/Electric Bills: No Difficulty Paying for Meds: No Currently Unemployed: No Education: High School Diploma/GED Difficulty w/ Childcare or Family Care: No Spiritual care concerns: No Exam Narrative: GENERAL: Well-appearing, well-nourished, and in no acute distress. HEAD: Normocephalic, atraumatic. EYES: PERRLA and EOMI. ENT: Nares clear, no rhinorrhea or epistaxis. Mucous membranes moist. Oropharynx without tonsillar hypertrophy exudate or other lesions. Bilateral TMs pearly bhardwaj nonbulging NECK: Supple. No adenopathy or masses. No carotid bruits or JVD CHEST: Clear to auscultation. No respiratory distress. No wheezes rales or rhonchi HEART: Regular rate and rhythm. No murmur heard. Normal peripheral pulses. ABDOMEN: Soft, nontender, nondistended, normal active bowel sounds. EXTREMITIES: bilateral lower extremity amputated SKIN: Warm, dry. Right hand noted to have some erythema with a blister to the dorsum aspect of the right hand, pulses present NEURO: No foc
[2023-03-31] MEDS: NAPROXEN 500 MG TABLET PO (12:07)
[2023-03-31] MEDS: CEPHALEXIN 500 MG CAPSULE PO (12:07)
== END 2023-03-31 12:16 | disposition home or self-care (01) ==
PROVIDERS: Emergency Provider Nurse Practitioner Family; PCP Family Medicine
DX: L55.9 Sunburn, unspecified (principal); S41.112A Laceration without foreign body of left upper arm, initial encounter; I73.9 Peripheral vascular disease, unspecified; Z89.612 Acquired absence of left leg above knee; Z89.611 Acquired absence of right leg above knee; Z87.891 Personal history of nicotine dependence; X58.XXXA Exposure to other specified factors, initial encounter
CPT/HCPCS: 99283; A9270

== ENCOUNTER 2023-05-17 20:53 | Inpatient (IN) | payer OTHER, SELFPAY ==
--- NOTE | ~2023-05-17 | CT_ITS ---
CT head without contrast Indication: Altered mental status COMPARISON: 12/09/2011 Technique: Serial scans were obtained through the brain without the administration of contrast. Dose reduction technique was used on this scan by utilizing automated exposure control and iterative recon struction technique. The dose-length product (DLP) was 681.00 mGy-cm. Findings: There is no evidence of intracranial hemorrhage, mass lesion, or acute infarct. Chronic rig ht occipital lobe infarct is present. Probable lacunar infarcts present in the basal ganglia bilatera lly. The ventricles and subarachnoid spaces are dilated, consistent with mild atrophy. Low attenuati on regions are seen within the periventricular white matter bilaterally, likely representing changes from chronic microvascular ischemic disease. There is no evidence of edema, mass effect or midline s hift. The visualized paranasal sinuses and mastoid air cells are clear. Impression: No intracranial hemorrhage, mass, or acute infarct. Chronic right occipital lobe infarct. Probable chronic lacunar infarcts in the bilateral basal gangli a. Atrophy and chronic white matter changes, as above. Reviewed, dictated and finalized at location [facility]. Impression: No intracranial hemorrhage, mass, or acute infarct. Chronic right occipital lobe infarct. Probable chronic lacunar infarcts in the bilateral basal ganglia. Atrophy and chronic white matter changes, as above.
--- NOTE | ~2023-05-17 | XR_ITS ---
Portable chest x-ray Comparison: 08/21/2022 Clinical History: Weakness Findings: There is probable minimal central congestive change and possible minimal interstitial christiano a. Cardiomediastinal silhouette is stable. Bones and soft tissues are unremarkable. Impression: Probable minimal central congestive change and minimal interstitial edema. Reviewed, dictated and finalized at [facility]. Impression: Probable minimal central congestive change and minimal interstitial edema.
[2023-05-17 20:56] VITALS: BP 71/41; PULSE 61; RESP 20; TEMP 36.5; O2SAT 85
[2023-05-17 20:59] VITALS: O2SAT 86
[2023-05-17 21:14] VITALS: BP 148/118; PULSE 68; RESP 15; O2SAT 100
[2023-05-17 21:22] VITALS: RESP 27
[2023-05-17 21:23] VITALS: BP 92/41; PULSE 57; RESP 24; O2SAT 100
--- NOTE | 2023-05-17 21:28 | ECG_ITS ---
Measurements Intervals [place] Rate: 56 P: 85 WV: 177 QRS: 58 QRSD: 85 T: 72 QT: 399 QTc: 386 Interpretive Statements SINUS BRADYCARDIA MINIMAL Q WAVES- INFERIOR LEADS BASELINE ARTIFACT- I, II, III, AVR, AVL, AVF, V1-V6 BORDERLINE ECG COMPARED TO ECG 08/19/2022 09:28:50 HEART RATE HAS INCREASED Electronically Signed On 05-18-2023 6:50:23 CDT by Mayo Payan D.O.
[2023-05-17] MEDS: ONDANSETRON INJ 4 MG/2 ML VIAL IV PUSH (21:58)
[2023-05-17 22:22] LABS: Basophils Absolute Auto 0.1 K/mm3 (0.0-0.1); Basophils Percent Auto 0.3 % (0.2-1.2); Eosinophils Absolute Auto 0.2 K/mm3 (0-0.3); Eosinophils Percent Auto 0.8 % (0-4.4); Hematocrit 38.6 % (37.0-47.0); Hemoglobin 12.2 g/dL (12.0-15.0); Immature Granulocyte Absolute 0.07 K/mm3 (0.00-0.031); Immature Granulocyte Percent A 0.4 % (0-0.5); Lymphocytes Absolute Auto 0.45 K/mm3 (0.9-3.2); Lymphocytes Percent Auto 2.4 % (18.3-44.2); Mean Corpuscular HGB Conc 31.6 g/dl (32-36); Mean Corpuscular Hemoglobin 31.2 pg (26-34); Mean Corpuscular Volume 98.7 fl (80-100); Mean Platelet Volume 8.5 fl (7.4-10.4); Monocytes Absolute Auto 1.4 K/mm3 (0.1-0.6); Monocytes Percent Auto 7.5 % (2.6-8.5); Neutrophils Absolute Auto 16.4 K/mm3 (1.3-6.7); Neutrophils Percent Auto 88.6 % (45.5-73.1); Platelet Count Result 354 k/mm3 (150-375); Red Blood Count 3.91 M/mm3 (4.2-5.4); Red Cell Distribution Width 13.1 % (11.5-14.5); White Blood Count 18.6 K/mm3 (4.5-10.0)
[2023-05-17 22:31] LABS: INR 1.1; Prothrombin Time 14.2 Seconds (11.1-14.7)
[2023-05-17 22:32] LABS: Alanine Aminotransferase 18 U/L (6-35); Albumin Level 3.8 g/dL (3.5-5.1); Alkaline Phosphatase 121 U/L (38-126); Anion Gap 9 mmol/L (8-16); Aspartate Amino Transferase 22 U/L (14-36); Bilirubin,Total 0.3 mg/dL (0.2-1.3); Blood Urea Nitrogen 28 mg/dL (7-17); Calcium 8.3 mg/dL (8.4-10.2); Carbon Dioxide 29 mmol/L (22-30); Chloride 100 mmol/L (98-107); Estimated Glomerular Filt Rate 38; Glucose 113 mg/dL (65-110); Lipase 38 U/L (23-300); Magnesium 1.8 mg/dL (1.6-2.3); Potassium 4.2 mmol/L (3.4-5.0); Sodium 138 mmol/L (137-145)
[2023-05-17 22:43] LABS: NT Pro B Type Natriuretic Pept 2200 pg/mL (19.9-100); Troponin I < 0.012 ng/mL (0.000-0.034)
[2023-05-17 22:51] LABS: Alveolar/Arterial O2 Gradient 159.4 mmHg; Base Excess ABG -0.6 mEq/l (+/-2.0); Fractional Inspired Oxygen 36 %; HCO3 ABG 26.3 mEq/l (22.0-26.0); Oxygen Content ABG 11.6 %vol (16.0-22.0); PCO2 ABG 52.9 mmHg (35.0-45.0); Total Hemoglobin 13.3 g/dL (12.0-18.0); pH ABG 7.315 (7.350-7.450)
[2023-05-17 23:04] VITALS: BP 155/68; PULSE 56; RESP 26; O2SAT 94
[2023-05-17 23:16] LABS: Procalcitonin 0.1 ng/mL
[2023-05-18] VITALS (21 sets, daily range): BP systolic 103–166; BP diastolic 30–51; PULSE 46–83; RESP 16–22; TEMP 36.2–36.9; O2SAT 93–99; BMI 26.4
[2023-05-18 00:16] LABS: Appearance Urine Cloudy (Clear); Bacteria Urine 1+ /hpf; Bilirubin Urine Negative (Negative); Blood Urine Negative (Negative); Color Urine Yellow (Yellow); Glucose Urine UA Negative (Negative); Ketones Urine Negative (Negative); Leukocyte Esterase Ur 1+ LEU/UL (Negative); Need Manual Microscopic Reviewed; Nitrate Urine Negative (Negative); Non Pathogenic Casts 0-2; Protein Urine 2+ mg/dL (Negative); RBC Urine 0-2 /hpf (0-2); Specific Grav Ur 1.017 (1.001-1.035); Squamous Epithelial Cell Urine Many /hpf (Few); Urobilinogen Urine 0.2 mg/dL (<2.0); WBC Urine 21-50 /hpf; pH Urine 5.5 (5.0-9.0)
--- NOTE | 2023-05-18 00:19 | ED.GENADULT ---
HPI - General Adult General Chief complaint: Altered Mental Status Stated complaint: ams/low o2 Time Seen by Provider: 05/17/23 21:09 History of Present Illness HPI narrative: Patient 61-year-old female who presents the emergency department with chief complaint of altered mental status. Per the patient's family the patient took a dose of oxycodone and also takes marijuana Gummies the patient may have taken an extra dose this evening and they noticed that she was less responsive than normal and reported that she was hypoxic. Patient has history of vascular disease and has bilateral above-knee amputations. Patient has had significant urinary tract infections before in the past and also has had pneumonia in the past. Related Data Home Medications Medication Instructions Recorded Confirmed atorvastatin 80 mg tablet 80 mg PO HS 08/19/22 08/19/22 carvedilol 12.5 mg tablet 12.5 mg PO BID 08/19/22 08/19/22 diltiazem HCl 240 mg 480 mg PO DAILY 08/19/22 08/19/22 capsule,extended release 24 hr ferrous sulfate 325 mg (65 mg 325 mg PO DAILY 08/19/22 08/19/22 iron) tablet (FeroSul) folic acid 1 mg tablet 1 mg PO DAILY 08/19/22 08/19/22 furosemide 40 mg tablet 40 mg PO DAILY 08/19/22 08/19/22 gabapentin 300 mg capsule 300 mg PO BID 08/19/22 08/19/22 ipratropium 0.5 mg-albuterol 3 mg 3 ml inhalation BID PRN shortness 08/19/22 08/19/22 (2.5 mg base)/3 mL nebulization of breath soln levothyroxine 50 mcg tablet 50 mcg PO DAILY 08/19/22 08/19/22 magnesium oxide 400 mg (241.3 mg 400 mg PO BID 08/19/22 08/19/22 magnesium) tablet oxycodone 10 mg tablet 10 mg PO Q4H PRN Pain 08/19/22 08/19/22 potassium chloride 20 mEq 20 meq PO BID 08/19/22 08/19/22 tablet,extended release Allergies Allergy/AdvReac Type Severity Reaction Status Date / Time No Known Allergies Allergy Verified 08/02/22 11:39 Review of Systems Review of Systems: A 10 system review of systems was completed on the patient and is negative except for what is stated in the HPI. Nursing and ancillary documentation was reviewed. [facility] Past Medical History Medical History History of left above knee amputation History of right above knee amputation Surgical History Surgical History S/P femoral-femoral bypass surgery Social History Social History Smoking status: Former smoker Alcohol intake: former Substance use: current Substance use type: marijuana Other substance usage details: gummies Lack of Transportation: No Lack of Food: Never True Current Housing: I Have Housing Concerned About Future Housing: No Difficulty Paying Gas/Electric Bills: No Difficulty Paying for Meds: No Currently Unemployed: No Education: High School Diploma/GED Difficulty w/ Childcare or Family Care: No Spiritual care concerns: No Exam Narrative: GENERAL: Well-appearing, well-nourished, and in no acute distress. HEAD: Normocephalic, atraumatic. EYES: PERRLA and EOMI. ENT: Nares clear, no rhinorrhea or epistaxis. Mucous membranes moist. NECK: Supple. CHEST: Clear to auscultation. No respiratory distress. HEART: Regular rate and rhythm. No murmur heard. Normal peripheral pulses. ABDOMEN: Soft, nontender, nondistended, normal active bowel sounds. EXTREMITIES: Normal range of motion bilateral above-knee amputations. No edema. SKIN: Warm, dry, no rash. NEURO: No focal deficits. Alert and oriented x3. Somewhat slow to respond PSYCH: Normal mood and affect. Course Vital Signs Vital signs: Vital Signs Temperature 36.5 C 05/17/23 20:56 Pulse Rate 61 05/17/23 20:56 Respiratory Rate 20 05/17/23 20:56 Blood Pressure 71/41 L 05/17/23 20:56 Pulse Oximetry 85 L 05/17/23 20:56 Oxygen Delivery Room Air 05/17/23 20:56 Temperature 36.5
[2023-05-18 00:21] LABS: Add Urine Microscopic? YES
[2023-05-18 00:43] LABS: Lactic Acid Reflex 1.5 mmol/L (0.7-2.0)
[2023-05-18 01:05] LABS: Amphetamine Screen Urine Negative (Negative); Barbiturate Screen Urine Negative (Negative); Benzodiazepines Screen Urine Negative (Negative); Cannabinoid Screen Urine Positive (Negative); Cocaine Screen Urine Negative (Negative); Methadone Screen Urine Negative (Negative); Opiate Screen Urine Positive (Negative); Phencyclidine Screen Urine Negative (Negative)
[2023-05-18] MEDS: AZITHROMYCIN 500 MG/NS 250 ML 500 MG/250 ML BAG 250 MG IVPB (02:04)
--- NOTE | 2023-05-18 02:34 | ADMGEN ---
This patient, Pamela Plata, was admitted to Medical Room 251-01. Patient/family oriented to hospital policies and general routines including ID bracelet, bed and alarms, visiting hours, pain management, procedures, bathroom and other care routines, personal items, smoking policy, room service/diet, and visiting hours. Information on how to activate the Rapid Response Team has been discussed. Patient/Family are encouraged to report perceived risks to care and to ask questions if they do not understand what they are told or what they should do.
[2023-05-18 03:23] LABS: Troponin I < 0.012 ng/mL (0.000-0.034)
--- NOTE | 2023-05-18 04:40 | PCRCNOTE ---
After several unsuccessful attempts to get an ABG, therapist was only able to get venous blood. Unable to feel a good radial or brachial pulse. The doctor is aware.
[2023-05-18] MEDS: IPRATROPIUM BR 0.02% INH SOLN 0.5 MG/2.5 ML VIAL INHALATION ×3 (08:17→19:29)
[2023-05-18] MEDS: ALBUTEROL SULFATE NEB 2.5 MG/3 ML INH INHALATION ×3 (08:17→19:31)
[2023-05-18 08:44] LABS: Basophils Absolute Auto 0.1 K/mm3 (0.0-0.1); Basophils Percent Auto 0.4 % (0.2-1.2); Eosinophils Percent Auto 0.3 % (0-4.4); Hematocrit 35.1 % (37.0-47.0); Hemoglobin 10.9 g/dL (12.0-15.0); Immature Granulocyte Absolute 0.06 K/mm3 (0.00-0.031); Immature Granulocyte Percent A 0.4 % (0-0.5); Lymphocytes Percent Auto 5.6 % (18.3-44.2); Mean Corpuscular HGB Conc 31.1 g/dl (32-36); Mean Corpuscular Hemoglobin 31.1 pg (26-34); Mean Corpuscular Volume 100.3 fl (80-100); Mean Platelet Volume 8.6 fl (7.4-10.4); Monocytes Absolute Auto 1.3 K/mm3 (0.1-0.6); Monocytes Percent Auto 9.1 % (2.6-8.5); Neutrophils Percent Auto 84.2 % (45.5-73.1); Platelet Count Result 310 k/mm3 (150-375); Red Cell Distribution Width 13.4 % (11.5-14.5); White Blood Count 14.3 K/mm3 (4.5-10.0)
[2023-05-18] MEDS: carvediloL 12.5 MG TABLET PO (08:51)
[2023-05-18] MEDS: ASPIRIN 81 MG CHEWABLE TABLET PO (08:51)
[2023-05-18] MEDS: FOLIC ACID 1 MG TABLET PO (08:54)
[2023-05-18] MEDS: ENOXAPARIN 30 MG/0.3 ML SYRINGE SUB-Q (08:54)
[2023-05-18 08:57] LABS: Alanine Aminotransferase 17 U/L (6-35); Albumin Level 3.4 g/dL (3.5-5.1); Alkaline Phosphatase 110 U/L (38-126); Anion Gap 6 mmol/L (8-16); Aspartate Amino Transferase 19 U/L (14-36); Bilirubin,Total 0.4 mg/dL (0.2-1.3); Blood Urea Nitrogen 30 mg/dL (7-17); Carbon Dioxide 28 mmol/L (22-30); Chloride 105 mmol/L (98-107); Estimated CRCL calculation 35 ml/min; Estimated Glomerular Filt Rate 42; Glucose 125 mg/dL (65-110); Potassium 3.7 mmol/L (3.4-5.0); Sodium 139 mmol/L (137-145)
[2023-05-18] MEDS: GABAPENTIN 300 MG CAPSULE PO (08:57)
[2023-05-18] MEDS: dilTIAZem HCL CD 240 MG CAP.24HR 480 MG PO (08:57)
[2023-05-18 10:11] LABS: Oxygen Saturation ABG 62.9 % (95.0-100.0); Oxyhemoglobin 62.3 % THb (90.0-100.0); PO2 ABG 35.9 mmHg (80.0-100.0)
--- NOTE | 2023-05-18 14:51 | PM.IMHP ---
H&P: HPI History of Present Illness Date/Time: 05/18/23 14:51 Chief Complaint: Altered mental status Narrative: This is a 63-year-old female with a past medical history of CVA, hypothyroidism, hypertension, PVD, bilateral BKA due to vascular disease that lead to the development of MRSA. She the presented to ED on 05/18/2023 with chief complaint of altered mental status. notices she was having some difficulty breathing and her breathing audible, when he was trying to arouse her and her was difficult to arouse. He brought her into the ER for evaluation. She was found to have WBC of 18,000 and UA positive for LE, and 21-50 WBCs. Troponin and lactic acid within normal limits. BUN and Cr 1.4/28. Wheezing present on lung exam. CXR probable minimal central congestive change and minimal interstitial edema. Patient did require 4 L of oxygen supplementation. Head CT showing chronic occipital lobe infarct but no acute intracranial findings. He does get concern about her memory that has been bad since her stroke in 2014. He states that he gets worried sometimes that she forgets that she takes her pills and possibly accidently takes too many pills when he isn't looking. He does manage her medications and is planning on making her pills more secure. She does also take Marijuana gummies to aid in her phantom pain. She was started on Rocephin for UTI and urine culture is pending. Furosemide Daily due to pulmonary congestion. wean oxygen as O2 saturation allows. blood culture pending. most of this history taken from patient's . Review of Systems Review of Systems: All systems reviewed & are unremarkable except as noted in HPI and below PMFSH Past Medical History Medical History (Updated 05/18/23 @ 15:38 by Lara Banks PA-C) Anemia Cardiomyopathy Depressed History of left above knee amputation History of right above knee amputation Peripheral vascular disease Stroke Surgical History Surgical History S/P femoral-femoral bypass surgery Family History Family History (Updated 05/18/23 @ 02:57 by Yarelis Plata RN) Father Chronic obstructive pulmonary disease Social History Social History Smoking packs per day: 2 Smoking cigarettes per day: 40.0 Smoking status: Former smoker Tobacco type: cigarettes Additional smoking assessment comments: started when she was 17 Alcohol intake: former Substance use: current Substance use type: marijuana Other substance usage details: gummies Lack of Transportation: No Lack of Food: Never True Current Housing: I Have Housing Concerned About Future Housing: No Difficulty Paying Gas/Electric Bills: No Difficulty Paying for Meds: No Currently Unemployed: No Education: High School Diploma/GED Difficulty w/ Childcare or Family Care: No Spiritual care concerns: No Meds Home Medications and Allergies Home Medications Medication Instructions Recorded Confirmed Type atorvastatin 80 mg tablet 80 mg PO HS 08/19/22 05/18/23 History carvedilol 12.5 mg tablet 12.5 mg PO BID 08/19/22 05/18/23 History diltiazem HCl 240 mg 480 mg PO DAILY 08/19/22 05/18/23 History capsule,extended release 24 hr ferrous sulfate 325 mg (65 mg 325 mg PO HS 08/19/22 05/18/23 History iron) tablet (FeroSul) folic acid 1 mg tablet 1 mg PO DAILY 08/19/22 05/18/23 History gabapentin 300 mg capsule 300 mg PO DAILY 08/19/22 05/18/23 History ipratropium 0.5 mg-albuterol 3 mg 3 ml inhalation BID PRN shortness 08/19/22 05/18/23 History (2.5 mg base)/3 mL nebulization of breath soln levothyroxine 50 mcg tablet 50 mcg PO DAILY 08/19/22 05/18/23 History Aspirin Child 81 mg PO DAILY 05/18/23 05/18/23 History aripiprazole 5 mg tablet 5 mg PO HS 05/18/23 05/18/23 History gabapentin 300 mg capsule 600 mg PO HS 05/18/23 05/18/23 History oxycodo
[2023-05-18] MEDS: GABAPENTIN 300 MG CAPSULE 600 MG PO (20:29)
[2023-05-18] MEDS: FERROUS SULFATE 325 MG TABLET DR PO (20:29)
[2023-05-18] MEDS: ATORVASTATIN 40 MG TABLET 80 MG PO (20:29)
[2023-05-18] MEDS: ARIPiprazole 5 MG TABLET PO (20:29)
[2023-05-19] VITALS (15 sets, daily range): BP systolic 157–172; BP diastolic 47–53; PULSE 50–79; RESP 16–18; TEMP 36.8–37; O2SAT 91–96
[2023-05-19] MEDS: IPRATROPIUM BR 0.02% INH SOLN 0.5 MG/2.5 ML VIAL INHALATION ×4 (01:11→20:27)
[2023-05-19] MEDS: ALBUTEROL SULFATE NEB 2.5 MG/3 ML INH INHALATION ×4 (01:11→20:27)
[2023-05-19 07:20] LABS: Basophils Percent Auto 0.2 % (0.2-1.2); Eosinophils Absolute Auto 0.3 K/mm3 (0-0.3); Eosinophils Percent Auto 1.9 % (0-4.4); Hematocrit 36.2 % (37.0-47.0); Hemoglobin 11.4 g/dL (12.0-15.0); Immature Granulocyte Absolute 0.05 K/mm3 (0.00-0.031); Immature Granulocyte Percent A 0.4 % (0-0.5); Lymphocytes Absolute Auto 1.32 K/mm3 (0.9-3.2); Lymphocytes Percent Auto 9.4 % (18.3-44.2); Mean Corpuscular HGB Conc 31.5 g/dl (32-36); Mean Corpuscular Hemoglobin 31.2 pg (26-34); Mean Corpuscular Volume 99.2 fl (80-100); Mean Platelet Volume 8.8 fl (7.4-10.4); Monocytes Absolute Auto 1.3 K/mm3 (0.1-0.6); Monocytes Percent Auto 9.3 % (2.6-8.5); Neutrophils Percent Auto 78.8 % (45.5-73.1); Platelet Count Result 326 k/mm3 (150-375); Red Blood Count 3.65 M/mm3 (4.2-5.4); Red Cell Distribution Width 13.2 % (11.5-14.5)
[2023-05-19 07:28] LABS: Alanine Aminotransferase 18 U/L (6-35); Albumin Level 3.6 g/dL (3.5-5.1); Alkaline Phosphatase 95 U/L (38-126); Anion Gap 11 mmol/L (8-16); Aspartate Amino Transferase 20 U/L (14-36); Bilirubin,Total 0.3 mg/dL (0.2-1.3); Blood Urea Nitrogen 25 mg/dL (7-17); Calcium 8.9 mg/dL (8.4-10.2); Carbon Dioxide 26 mmol/L (22-30); Chloride 102 mmol/L (98-107); Estimated CRCL calculation 37 ml/min; Estimated Glomerular Filt Rate 46; Glucose 101 mg/dL (65-110); Potassium 3.9 mmol/L (3.4-5.0); Sodium 139 mmol/L (137-145)
[2023-05-19] MEDS: dilTIAZem HCL CD 240 MG CAP.24HR 480 MG PO (09:25)
[2023-05-19] MEDS: FOLIC ACID 1 MG TABLET PO (09:25)
[2023-05-19] MEDS: ASPIRIN 81 MG CHEWABLE TABLET PO (09:26)
[2023-05-19] MEDS: carvediloL 12.5 MG TABLET PO ×2 (09:26→17:52)
[2023-05-19] MEDS: GABAPENTIN 300 MG CAPSULE PO (09:29)
--- NOTE | 2023-05-19 13:37 | PM.IMPN ---
Progress Note: A&P Assessment and Plan (1) UTI (urinary tract infection): Code(s): N39.0 - Urinary tract infection, site not specified Status: Acute Assessment and Plan: UA positive for 1+ LE and 21-50 wbc's. Patient's Rocephin Q 24 hours Urine cultures pending Adjust antibiotic therapy to culture results. Blood culture pending (2) Pulmonary edema: Code(s): J81.1 - Chronic pulmonary edema Status: Acute Assessment and Plan: Chest x-ray showing probable minimal central congestive changes minimal interstitial edema. Will star furosemide daily Monitor kidney function. Patient requiring 4 L of O2. Wean oxygen to maintain O2 saturation greater than 90. 5 day course of steroids and azithromycin. She is 20 year smoking history and concern for possible COPD exacerbation. (3) Altered mental status: Code(s): R41.82 - Altered mental status, unspecified Status: Acute Assessment and Plan: This is somewhat resolved. According to patient's she does have chronic memory issues but when discussing with patient she is alert and oriented x3 and unaware of to why she was brought to the hospital. Plan Patient's home medications for hypertension, hypothyroidism, depression and vitamin supplements restarted Subjective Date/time seen: 05/19/23 13:37 Interval history: patient feeling much better than sitting up in bed. She has been able to be weaned down to 1 L of oxygen from 4 L of oxygen. She usually is on room air. She states she does have some shortness of breath. Her lung sounds are wheezy and coarse and decided to start her on 5 day course of azithromycin and 5 day course of steroids. No evidence of pneumonia but she does have 20 year history of smoking. she has a wet cough that is nonproductive. No urinary symptoms, no abdominal pain, no nausea no vomiting and no chest pain. Review of Systems Review of Systems: All systems reviewed & are unremarkable except as noted in HPI and below Exam Narrative: GENERAL: Comfortable, no acute distress HENMT: moist mucous membranes EYES: EOM intact b/l NECK: no lymphadenopathy RESPIRATORY: Bibasilar crackles and wheezing CARDIO: RRR GI: soft, nontender, bowel sounds present SKIN: no rashes EXTREMITIES: Bile above the knee amputation Objective Data Vital Signs Vital Signs: Vital Signs - 24 hr 05/18/23 13:43 05/18/23 14:00 05/18/23 18:09 Temperature 98.4 F Pulse Rate 53 L 47 L 49 L Respiratory Rate 16 16 Blood Pressure 103/39 L 127/30 L Pulse Oximetry 96 96 Oxygen Delivery Oxygen Flow Rate Fraction of Inspired Oxygen 05/18/23 18:17 05/18/23 19:31 05/18/23 19:34 Temperature Pulse Rate 48 L 49 L 49 L Respiratory Rate 18 18 Blood Pressure Pulse Oximetry 96 Oxygen Delivery Nasal Cannula Oxygen Flow Rate 3 Fraction of Inspired Oxygen 32 05/18/23 19:48 05/18/23 20:00 05/18/23 22:39 Temperature 97.1 F L Pulse Rate 55 L 50 L Respiratory Rate 18 18 Blood Pressure 130/40 L Pulse Oximetry 96 97 Oxygen Delivery Nasal Cannula Oxygen Flow Rate 4 Fraction of Inspired Oxygen 05/19/23 01:12 05/19/23 07:41 05/19/23 07:41 Temperature Pulse Rate 50 L 63 Respiratory Rate 16 18 Blood Pressure Pulse Oximetry 96 Oxygen Delivery Nasal Cannula Oxygen Flow Rate 3 Fraction of Inspired Oxygen 05/19/23 07:56 05/19/23 08:35 05/19/23 09:26 Temperature Pulse Rate 70 68 Respiratory Rate 18 Blood Pressure Pulse Oximetry 95 Oxygen Delivery Nasal Cannula Oxygen Flow Rate 2 Fraction of Inspired Oxygen 05/19/23 09:37 05/19/23 08:00 05/19/23 10:23 Temperature Pulse Rate 68 Respiratory Rate 18 Blood Pressure Pulse Oximetry 94 94 91 Oxygen Delivery Nasal Cannula Nasal Cannula Room Air Oxygen Flow Rate 1 1 Fraction of Inspired Oxygen 32 05/19/23 13:11 05/19/23 13:25 Temperature Pulse
[2023-05-19] MEDS: AZITHROMYCIN 250 MG TABLET 500 MG PO (14:44)
[2023-05-19] MEDS: methylPREDNISolone SOD SUCC 125 MG VIAL 80 MG IV PUSH (14:44)
[2023-05-19] MEDS: GABAPENTIN 300 MG CAPSULE 600 MG PO (20:07)
[2023-05-19] MEDS: FERROUS SULFATE 325 MG TABLET DR PO (20:08)
[2023-05-19] MEDS: ATORVASTATIN 40 MG TABLET 80 MG PO (20:08)
[2023-05-19] MEDS: ARIPiprazole 5 MG TABLET PO (20:08)
[2023-05-20] VITALS (11 sets, daily range): BP systolic 142–160; BP diastolic 50–61; PULSE 63–82; RESP 14–21; TEMP 36.1–36.8; O2SAT 95–100
[2023-05-20] MEDS: ALBUTEROL SULFATE NEB 2.5 MG/3 ML INH INHALATION ×3 (02:29→15:03)
[2023-05-20] MEDS: IPRATROPIUM BR 0.02% INH SOLN 0.5 MG/2.5 ML VIAL INHALATION ×3 (02:29→15:03)
[2023-05-20] MEDS: LEVOTHYROXINE SODIUM 50 MCG TABLET PO (05:35)
[2023-05-20 05:44] LABS: Basophils Percent Auto 0.1 % (0.2-1.2); Hemoglobin 11.8 g/dL (12.0-15.0); Immature Granulocyte Absolute 0.08 K/mm3 (0.00-0.031); Immature Granulocyte Percent A 0.7 % (0-0.5); Lymphocytes Absolute Auto 0.86 K/mm3 (0.9-3.2); Lymphocytes Percent Auto 7.9 % (18.3-44.2); Mean Corpuscular HGB Conc 32.8 g/dl (32-36); Mean Corpuscular Hemoglobin 30.8 pg (26-34); Mean Platelet Volume 8.7 fl (7.4-10.4); Monocytes Absolute Auto 0.4 K/mm3 (0.1-0.6); Monocytes Percent Auto 3.5 % (2.6-8.5); Neutrophils Absolute Auto 9.6 K/mm3 (1.3-6.7); Neutrophils Percent Auto 87.8 % (45.5-73.1); Platelet Count Result 336 k/mm3 (150-375); Red Blood Count 3.83 M/mm3 (4.2-5.4); Red Cell Distribution Width 12.4 % (11.5-14.5); White Blood Count 10.9 K/mm3 (4.5-10.0)
[2023-05-20 05:52] LABS: Alanine Aminotransferase 21 U/L (6-35); Albumin Level 3.9 g/dL (3.5-5.1); Alkaline Phosphatase 107 U/L (38-126); Anion Gap 11 mmol/L (8-16); Aspartate Amino Transferase 19 U/L (14-36); Bilirubin,Total 0.5 mg/dL (0.2-1.3); Blood Urea Nitrogen 20 mg/dL (7-17); Carbon Dioxide 26 mmol/L (22-30); Chloride 101 mmol/L (98-107); Estimated CRCL calculation 41 ml/min; Estimated Glomerular Filt Rate 50; Glucose 158 mg/dL (65-110); Potassium 3.4 mmol/L (3.4-5.0); Sodium 138 mmol/L (137-145)
[2023-05-20] MEDS: FUROSEMIDE INJ 40 MG/4 ML VIAL IV PUSH (08:11)
[2023-05-20] MEDS: predniSONE 20 MG TABLET 40 MG PO (08:22)
[2023-05-20] MEDS: dilTIAZem HCL CD 240 MG CAP.24HR 480 MG PO (08:22)
[2023-05-20] MEDS: AZITHROMYCIN 250 MG TABLET PO (08:22)
[2023-05-20] MEDS: carvediloL 12.5 MG TABLET PO (08:22)
[2023-05-20] MEDS: ASPIRIN 81 MG CHEWABLE TABLET PO (08:22)
[2023-05-20] MEDS: FOLIC ACID 1 MG TABLET PO (08:23)
[2023-05-20] MEDS: GABAPENTIN 300 MG CAPSULE PO (08:23)
--- NOTE | 2023-05-20 11:08 | PM.DS ---
DS: Admitting Diagnosis Discharge Date 05/20/23 Admitting Diagnosis UTI DS: Discharge Diagnosis Discharge Diagnosis (1) UTI (urinary tract infection): Code(s): N39.0 - Urinary tract infection, site not specified Status: Acute Assessment and Plan: UA positive for 1+ LE and 21-50 wbc's. Patient's Rocephin Q 24 hours x3 doses Urine cultures with less than 32525 gram negative organisms. Blood culture no growth to date. (2) Pulmonary edema: Code(s): J81.1 - Chronic pulmonary edema Status: Acute Assessment and Plan: Chest x-ray showing probable minimal central congestive changes minimal interstitial edema. Will star furosemide daily Monitor kidney function. Patient weaned down to room air. 5 day course of steroids and azithromycin. She is 20 year smoking history and concern for possible COPD exacerbation. (3) Altered mental status: Code(s): R41.82 - Altered mental status, unspecified Status: Acute Assessment and Plan: This is somewhat resolved. According to patient's she does have chronic memory issues but when discussing with patient she is alert and oriented x3 and unaware of to why she was brought to the hospital. 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 She the presented to ED on 05/18/2023 with chief complaint of altered mental status. She was found to have WBC of 18,000 and UA positive for LE, and 21-50 WBCs.? Troponin and lactic acid within normal limits. BUN and Cr 1.4/28. Wheezing present on lung exam.? CXR probable minimal central congestive change and minimal interstitial edema. ? Patient did require 4 L of oxygen supplementation. Head CT showing chronic occipital lobe infarct but no acute intracranial findings.?She was started on Rocephin for UTI. Furosemide Daily due to pulmonary congestion. blood culture no growth to date. Urine culture came back with less than 41632 gram negative organisms growing. Due to patient's symptoms she will complete 3 doses of Rocephin for uncomplicated cystitis before discharging. On exam patient had diffuse wheezing. She does have a history of COPD and she was started on prednisone and azithromycin for 5 days. Patient was able to be weaned off oxygen and her respiratory status improved. Patient feeling much better. Discussed findings with her and she verbalized her understanding. The plan is to be discharged back home. Will be discharged after final dose Rocephin in the hospital. Labs and vital signs are stable and she is medically clear for discharge. Time Spent with Patient Time attestation: Total time spent providing and/or coordinating discharge services: Exam Narrative: GENERAL: Comfortable, no acute distress HENMT: moist mucous membranes EYES: EOM intact b/l NECK: no lymphadenopathy RESPIRATORY: Bibasilar crackles and wheezing CARDIO: RRR GI: soft, nontender, bowel sounds present SKIN: no rashes EXTREMITIES: Bile above the knee amputation DS: Data Data Completed and Pending Labs on day of discharge: Labs from last 24 hours 05/20/23 05:32 WBC 10.9 H RBC 3.83 L Hgb 11.8 L Hct 36.0 L MCV 94.0 D MCH 30.8 MCHC 32.8 RDW 12.4 Plt Count 336 MPV 8.7 Immature Gran % (Auto) 0.7 H Neut % (Auto) 87.8 H Lymph % (Auto) 7.9 L [place] % (Auto) 3.5 Eos % (Auto) 0.0 Baso % (Auto) 0.1 L Lymph # (Auto) 0.86 L [place] # (Auto) 0.4 Eos # (Auto) 0.0 Baso # (Auto) 0.0 Abs Immat Gran (auto) 0.08 H Absolute Neuts (auto) 9.6 H Absolute Nucleated RBC 0.0 Nucleated RBC % 0.0 Sodium 138 Potassium 3.4 Chloride 101 Carbon Dioxide 26 Anion Gap 11 BUN 20 H Creatinine 1.10 H Es
== END 2023-05-20 16:30 | disposition home or self-care (01) | DRG 690 ==
LOC: ANHED 05-18 00:41 → ANH2MED 05-18 01:27
PROVIDERS: Admitting Provider Internal Medicine; Emergency Provider Emergency Medicine; PCP Family Medicine; Visit Provider Internal Medicine Critical Care Medicine
DX: N39.0 Urinary tract infection, site not specified (principal); J81.1 Chronic pulmonary edema; I43 Cardiomyopathy in diseases classified elsewhere; D64.9 Anemia, unspecified; E03.9 Hypothyroidism, unspecified; F32.A Depression, unspecified; I11.9 Hypertensive heart disease without heart failure; I73.9 Peripheral vascular disease, unspecified; J44.9 Chronic obstructive pulmonary disease, unspecified; Z87.891 Personal history of nicotine dependence; Z86.73 Personal history of transient ischemic attack (TIA), and cerebral infarction without residual deficits; Z89.612 Acquired absence of left leg above knee; Z89.611 Acquired absence of right leg above knee; Z86.14 Personal history of Methicillin resistant Staphylococcus aureus infection
CPT/HCPCS: 36415; 36600; 70450; 71045; 80053; 80307; 81001; 82805; 83605; 83690; 83735; 83880; 84145; 84484; 85025; 85610; 85730; 87040; 87086; 93005; 94640; 96374; 99285; A9270; J0456; J0696; J1650; J1940; J2405; J2930; J7512

== ENCOUNTER → 2023-06-21 11:25 | Outpatient (CLI) | payer OTHER, SELFPAY ==
--- NOTE | ~2023-06-21 | XR_ITS ---
XR chest 2V 06/21/2023 11:55 Indication: Cough Procedure: 2 view chest Comparison: Comparison to multiple prior studies sequentially, with oldest reviewed study dated 03/14. Findings: Cardiomegaly. Mild interstitial edema. No pleural effusion or pneumothorax. No acute osseou s abnormality. Impression: 1: Mild interstitial edema. Reviewed, dictated and finalized at location B. Impression: 1: Mild interstitial edema.
== END ==
PROVIDERS: PCP Family Medicine; Visit Provider Family Medicine
DX: R05.9 Cough, unspecified (principal)
CPT/HCPCS: 71046

== ENCOUNTER 2023-06-22 12:19 | Inpatient (IN) | payer OTHER, SELFPAY ==
[2023-06-22] VITALS (58 sets, daily range): BP systolic 66–180; BP diastolic 29–149; PULSE 47–80; RESP 13–24; TEMP 36.3–36.6; O2SAT 88–98
--- NOTE | ~2023-06-22 | CT_ITS ---
EXAMINATION: CTA chest PE protocol DATE: 06/22/2023 14:02 INDICATION: Hypoxia. TECHNIQUE: Computed tomography angiography (CTA) of the chest was performed with 100 mL Omnipaque-350 intravenous contrast timed to evaluate the pulmonary arteries. Coronal maximum intensity projection 3D-reconstructions were created by the technologist. Automated exposure control and iterative reconst ruction technique were employed. The dose-length product was 498.57 mGy-cm. COMPARISON: Chest CT 06/11/2020 FINDINGS: There is mild emphysema. There is smooth septal thickening in the lungs, consistent mild pu lmonary edema. There is mild atelectasis bilaterally. There are trace pleural effusions. Cardiomegaly is noted. There are coronary artery calcifications. No pericardial effusion. There is a small slidin g hiatal hernia. There is no pulmonary embolus. There is chronic mild right paratracheal lymphadenopa thy, likely reactive. There is calcified atherosclerosis of the aorta and many of the other arteries. There is moderate stenosis of left common carotid artery and severe stenosis of the brachiocephalic trunk. There is mild thoracic spondylosis. There is a chronic compression fracture of T11. IMPRESSION: 1. No pulmonary embolus. 2. Mild emphysema. 3. Mild pulmonary edema. 4. Moderate stenosis of left common carotid artery and severe stenosis of the brachiocephalic trunk. Reviewed, dictated and finalized at location A. IMPRESSION: 1. No pulmonary embolus. 2. Mild emphysema. 3. Mild pulmonary edema. 4. Moderate stenosis of left common carotid artery and severe stenosis of the b rachiocephalic trunk.
--- NOTE | ~2023-06-22 | US_ITS ---
EXAMINATION: US venous doppler UE DATE: 06/22/2023 14:17 INDICATION: Left upper extremity swelling TECHNIQUE: Grayscale ultrasound images without and with compression and Doppler ultrasound images of the left upper extremity veins were obtained. COMPARISON: None. FINDINGS: The left internal jugular vein, subclavian vein, axillary vein, brachial veins, basilic vein, cephali c vein, radial vein, and ulnar vein are patent. IMPRESSION: 1. No evidence of deep venous thrombosis. Reviewed, dictated and finalized at location A.
--- NOTE | 2023-06-22 12:53 | ED.GENADULT ---
HPI - General Adult General Chief complaint: Recheck/Abnormal Lab/Rx Stated complaint: hand swelling/high wbc/elevated d dimer Time Seen by Provider: 06/22/23 12:53 History of Present Illness HPI narrative: Patient is a 63-year-old female with history of peripheral vascular disease resulting in multiple prior vascular procedures, status post amputation bilateral lower extremities here today with left arm swelling. Patient has had some left arm swelling over the last 1 week, minimal pain associated with it. She did contact her primary care doctor who had lab work drawn including a d-dimer and cbc. These were both elevated and patient was advised to come in for evaluation. Patient does note she has had multiple prior vascular surgeries resulting in irregular blood pressures on her right side, has previously been told by her vascular surgeon through [facility] that she should always have her blood pressures drawn on the left side. She denies fever chills, denies redness or warmth to the left arm. Of note the additionally notes that she has been having low oxygen saturations at home ranging in the 80s. She is not on home oxygen. He notes that he did give her a albuterol breathing treatment last night which seemed to improve things. She has history of COPD and asthma. Related Data Home Medications Medication Instructions Recorded Confirmed atorvastatin 80 mg tablet 80 mg PO HS 08/19/22 05/18/23 carvedilol 12.5 mg tablet 12.5 mg PO BID 08/19/22 05/18/23 diltiazem HCl 240 mg 480 mg PO DAILY 08/19/22 05/18/23 capsule,extended release 24 hr ferrous sulfate 325 mg (65 mg 325 mg PO HS 08/19/22 05/18/23 iron) tablet (FeroSul) folic acid 1 mg tablet 1 mg PO DAILY 08/19/22 05/18/23 gabapentin 300 mg capsule 300 mg PO DAILY 08/19/22 05/18/23 ipratropium 0.5 mg-albuterol 3 mg 3 ml inhalation BID PRN shortness 08/19/22 05/18/23 (2.5 mg base)/3 mL nebulization of breath soln levothyroxine 50 mcg tablet 50 mcg PO DAILY 08/19/22 05/18/23 Aspirin Child 81 mg PO DAILY 05/18/23 05/18/23 aripiprazole 5 mg tablet 5 mg PO HS 05/18/23 05/18/23 gabapentin 300 mg capsule 600 mg PO HS 05/18/23 05/18/23 oxycodone 10 mg tablet 10 mg PO Q12H PRN pian 05/18/23 05/18/23 Allergies Allergy/AdvReac Type Severity Reaction Status Date / Time No Known Allergies Allergy Verified 06/22/23 12:31 Review of Systems Review of Systems: CONSTITUTIONAL: Denies fever, chills, or sweats. EYES: Denies visual changes, redness, or discharge. ENT: Denies rhinorrhea, congestion, sore throat, or otalgia. CARDIOVASCULAR: Denies chest pain, palpitations. RESPIRATORY: cough and dyspnea. GASTROINTESTINAL: Denies abdominal pain, nausea, vomiting, or diarrhea. GENITOURINARY: Denies dysuria or hematuria. SKIN: Denies rash or itching. MUSCULOSKELETAL: Denies back pain, joint pain, or myalgia. Left arm swelling. NEUROLOGIC: Denies headache, numbness, or weakness. PSYCHIATRIC: Denies anxiety or depression. [facility] Past Medical History Medical History (Updated 06/22/23 @ 15:33 by Leanne Perdue MD) Anemia Cardiomyopathy Depressed History of left above knee amputation History of right above knee amputation Peripheral vascular disease Stroke Surgical History Surgical History S/P femoral-femoral bypass surgery Family History Family History (Updated 05/18/23 @ 02:57 by Yarelis Plata RN) Father Chronic obstructive pulmonary disease Social History Social History Smoking packs per day: 2 Smoking cigarettes per day: 40.0 Smoking status: Former smoker Tobacco type: cigarettes Additional smoking assessment comments: started when she was 17 Alcohol intake: former Substance use: current Substance use type: marijuana Other substance usage details: gummies Lack of Transportation: No Lack of Food: Never True Current Housing:
[2023-06-22 13:19] LABS: Basophils Absolute Auto 0.1 K/mm3 (0.0-0.1); Basophils Percent Auto 0.4 % (0.2-1.2); Eosinophils Absolute Auto 0.4 K/mm3 (0-0.3); Eosinophils Percent Auto 2.9 % (0-4.4); Hematocrit 34.3 % (37.0-47.0); Hemoglobin 10.6 g/dL (12.0-15.0); Immature Granulocyte Absolute 0.08 K/mm3 (0.00-0.031); Immature Granulocyte Percent A 0.5 % (0-0.5); Lymphocytes Absolute Auto 1.49 K/mm3 (0.9-3.2); Lymphocytes Percent Auto 10.1 % (18.3-44.2); Mean Corpuscular HGB Conc 30.9 g/dl (32-36); Mean Corpuscular Volume 100.3 fl (80-100); Mean Platelet Volume 8.3 fl (7.4-10.4); Monocytes Absolute Auto 1.1 K/mm3 (0.1-0.6); Monocytes Percent Auto 7.6 % (2.6-8.5); Neutrophils Absolute Auto 11.5 K/mm3 (1.3-6.7); Neutrophils Percent Auto 78.5 % (45.5-73.1); Platelet Count Result 360 k/mm3 (150-375); Red Blood Count 3.42 M/mm3 (4.2-5.4); Red Cell Distribution Width 14.4 % (11.5-14.5); White Blood Count 14.7 K/mm3 (4.5-10.0)
[2023-06-22 13:34] LABS: Anion Gap 2 mmol/L (8-16); Carbon Dioxide 32 mmol/L (22-30); Chloride 98 mmol/L (98-107); Potassium 4.1 mmol/L (3.4-5.0); Sodium 132 mmol/L (137-145)
[2023-06-22 13:35] LABS: Alanine Aminotransferase 18 U/L (6-35); Albumin Level 3.6 g/dL (3.5-5.1); Alkaline Phosphatase 111 U/L (38-126); Aspartate Amino Transferase 20 U/L (14-36); Bilirubin,Total 0.3 mg/dL (0.2-1.3); Blood Urea Nitrogen 20 mg/dL (7-17); Calcium 8.7 mg/dL (8.4-10.2); Estimated CRCL calculation 29 ml/min; Estimated Glomerular Filt Rate 35; Glucose 132 mg/dL (65-110); Magnesium 2.1 mg/dL (1.6-2.3)
[2023-06-22 13:43] LABS: NT Pro B Type Natriuretic Pept 1110 pg/mL (19.9-100); Troponin I < 0.012 ng/mL (0.000-0.034)
[2023-06-22 16:44] LABS: Appearance Urine Clear (Clear); Bacteria Urine None Seen /hpf; Bilirubin Urine Negative (Negative); Blood Urine Negative (Negative); Color Urine Yellow (Yellow); Glucose Urine UA Negative (Negative); Ketones Urine Negative (Negative); Leukocyte Esterase Ur Negative LEU/UL (Negative); Need Manual Microscopic Reviewed; Nitrate Urine Negative (Negative); Non Pathogenic Casts 0-2; Protein Urine Trace mg/dL (Negative); RBC Urine 0-2 /hpf (0-2); Squamous Epithelial Cell Urine Few /hpf (Few); Urobilinogen Urine 0.2 mg/dL (<2.0); WBC Urine 0-5 /hpf
[2023-06-22 16:45] LABS: Add Urine Microscopic? YES; Specific Grav Ur 1.047 (1.001-1.035)
[2023-06-22] MEDS: FUROSEMIDE INJ 40 MG/4 ML VIAL IV PUSH (18:07)
--- NOTE | 2023-06-22 20:29 | PM.IMHP ---
H&P: HPI History of Present Illness Date/Time: 06/22/23 20:29 Chief Complaint: shortness of breath Narrative: This is a 63-year-old female with past medical history significant for peripheral vascular disease, status post bilateral lower extremity above the knee amputation, obesity, cardiomyopathy, major depression. patient presents to the emergency room due to several days with shortness of breath and swelling Primarily of the left upper extremity had been in to see her primary care physician who sent some lab work, including D-dimer which was elevated and patient was prompted to come to the emergency room for further evaluation. patient denies any fevers, rigors, chills, sputum production, cough, nausea, vomiting, diarrhea, abdominal pain, no chest pain, no palpitations, patient has had PND and orthopnea uses a bed able to recline to sitting position. Preliminary workup was significant for chemistry panel with BUN of 20 creatinine of 1.5, brain natriuretic peptide 1100, bicarb 32. A CT angiogram of the chest was negative for pulmonary embolism however it did showed mild pulmonary edema. Patient has been admitted for further evaluation management and treatment. EXAMINATION: CTA chest PE protocol DATE: 06/22/2023 14:02 INDICATION: Hypoxia. TECHNIQUE: Computed tomography angiography (CTA) of the chest was performed with 100 mL Omnipaque-350 intravenous contrast timed to evaluate the pulmonary arteries. Coronal maximum intensity projection 3D-reconstructions were created by the technologist. Automated exposure control and iterative reconstruction technique were employed. The dose-length product was 498.57 mGy-cm. COMPARISON: Chest CT 06/11/2020 FINDINGS: There is mild emphysema. There is smooth septal thickening in the lungs, consistent mild pulmonary edema. There is mild atelectasis bilaterally. There are trace pleural effusions. Cardiomegaly is noted. There are coronary artery calcifications. No pericardial effusion. There is a small sliding hiatal hernia. There is no pulmonary embolus. There is chronic mild right paratracheal lymphadenopathy, likely reactive. There is calcified atherosclerosis of the aorta and many of the other arteries. There is moderate stenosis of left common carotid artery and severe stenosis of the brachiocephalic trunk. There is mild thoracic spondylosis. There is a chronic compression fracture of T11. IMPRESSION: 1. No pulmonary embolus. 2. Mild emphysema. 3. Mild pulmonary edema. 4. Moderate stenosis of left common carotid artery and severe stenosis of the brachiocephalic trunk. EXAMINATION: US venous doppler UE LT DATE: 06/22/2023 14:17 INDICATION: Left upper extremity swelling TECHNIQUE: Grayscale ultrasound images without and with compression and Doppler ultrasound images of the left upper extremity veins were obtained. COMPARISON: None. FINDINGS: The left internal jugular vein, subclavian vein, axillary vein, brachial veins, basilic vein, cephalic vein, radial vein, and ulnar vein are patent. IMPRESSION: 1. No evidence of deep venous thrombosis. XR chest 2V 06/21/2023 11:55 Indication: Cough Procedure: 2 view chest Comparison: Comparison to multiple prior studies sequentially, with oldest reviewed study dated? 03/14/2016. Findings: Cardiomegaly. Mild interstitial edema. No pleural effusion or pneumothorax. No acute osseous abnormality. Impression: 1: Mild interstitial edema. Review of Systems Review of Systems: shortness of breath and swelling Constitutional: Constitutional: Denies chills, Reports fatigue, Denies fever(s), Denies night sweats, Reports weakness and Reports weight gain Eyes: Eyes: Denies change in vision ENT: Denies dysphagia and Denies odynophagia Cardiovascular: Cardiovascular: Denies chest pain, Denies irregular heart rhythm, Denies radiating jaw, neck or arm pain, Denies palpitations, Reports dyspnea and Reports orthopnea Respiratory: Re
[2023-06-23] VITALS (12 sets, daily range): BP systolic 92–124; BP diastolic 61–79; PULSE 71–84; RESP 16; TEMP 35.8–36.1; O2SAT 93–94
--- NOTE | 2023-06-23 | ECHO_ITS ---
Patient Info Name: Pamela Plata Age: 63 years : 1960 Gender: Female Ht: 63 in Wt: 132 lbs BSA: 1.64 m2 HR: 87 bpm BP: 174 / 59 mmHg Technical Quality: Fair Exam Date: 06/23/2023 11:24 AM Exam Location: [facility] Pulmonary Exam Room: 321 Patient Status: Inpatient Admit Date: 06/22/2023 Staff Ordering Physician: Aspen Brady MD Tip Bander: Alanna Recinos RDCS Attending Provider: Stacy Jacobson DO Referring Physician: Jose Antonio SALEH; Exam Type: CA echo dop color flow w con Study Info Indications - SWELLING Complete two-dimensional, color flow and Doppler transthoracic echocardiogram is performed with contrast to opacify the left ventricle and to improve the deliniation of the left ventricle endocardial borders. Contrast/Agitated Saline Contrast/Ag. Saline: Definity Amount: 2.00 ml Administered By: Alanna Recinos [facility] Existing IV Access: Yes Summary 1. Definity contrast administered improved wall motion interpretation. 2. Left ventricular chamber dimension is normal. 3. Left ventricular systolic function is normal, estimated at 65-70%. 4. There is mild concentric increased left ventricular wall thickness. 5. The left ventricular diastolic function is grade I diastolic dysfunction. 6. E/e' 9 is minimally elevated. 7. Mild right ventricular hypertrophy. 8. Left atrial chamber dimension is moderately enlarged. 9. There is mild aortic valve sclerosis. 10. There is mild mitral valve regurgitation. 11. There is trace tricuspid valve regurgitation. 12. Moderate pulmonary hypertension, estimated pulmonary arterial systolic pressure is 54 mmHg. Left Ventricle E/e' 9 is minimally elevated. Definity contrast administered improved wall motion interpretation. Left ventricular chamber dimension is normal. Left ventricular systolic function is normal, estimated at 65-70%. There is mild concentric increased left ventricular wall thickness. The left ventricular diastolic function is grade I diastolic dysfunction. Right Ventricle Mild right ventricular hypertrophy. Right ventricular chamber dimension is normal. Right ventricular systolic function is normal. Left Atria Left atrial chamber dimension is moderately enlarged. Right Atria Right atrial chamber dimension is normal. Aortic Valve The aortic valve is trileaflet. There is mild aortic valve sclerosis. There is no aortic valve stenosis. There is no aortic valve regurgitation. Pulmonic Valve There is no pulmonic regurgitation. Mitral Valve There is no mitral valve stenosis. There is mild mitral valve regurgitation. Tricuspid Valve There is trace tricuspid valve regurgitation. Moderate pulmonary hypertension, estimated pulmonary arterial systolic pressure is 54 mmHg. Pericardium/Pleural There is no pericardial effusion. Inferior Vena Cava Normal inferior vena cava with >50% collapse upon inspiration consistent with normal right atrial pressure, 5 mmHg. Aorta The aortic root size at the sinus of Valsalva is normal. Left Ventricular Outflow Tract Name Value Normal LVOT 2D LVOT Diameter 2.02 cm Pulmonic Valve Name Value Normal
[2023-06-23] MEDS: LEVOTHYROXINE SODIUM 50 MCG TABLET PO (06:12)
[2023-06-23] MEDS: ASPIRIN 81 MG CHEWABLE TABLET PO (08:17)
[2023-06-23] MEDS: dilTIAZem HCL CD 240 MG CAP.24HR 480 MG PO (08:17)
[2023-06-23] MEDS: FOLIC ACID 1 MG TABLET PO (08:18)
[2023-06-23] MEDS: GABAPENTIN 300 MG CAPSULE PO (08:18)
--- NOTE | 2023-06-23 08:30 | PM.IMPN ---
Progress Note: A&P Assessment and Plan (1) CHF (congestive heart failure): Qualifiers: Heart failure chronicity: acute Heart failure type: unspecified Qualified Code(s): I50.9 - Heart failure, unspecified Code(s): I50.9 - Heart failure, unspecified Status: Acute Assessment and Plan: Most likely related to acute on chronic diastolic heart failure in acute exacerbation BNP elevated at [address] show pulmonary edema Lasix 40mg IV BID for now Daily weights Tele monitor Trend urine out (2) YOHANNES (acute kidney injury): Code(s): N17.9 - Acute kidney failure, unspecified Status: Acute Assessment and Plan: BUN/Cr 20/1.50 upon arrival Current Cr 1.30 baseline is about 1.10 trend urine output hold on IV fluids with CHF Continue trend urine output Adjust therapy as indicated Most likely related to the fluid overload (3) Cardiomyopathy: Qualifiers: Cardiomyopathy type: unspecified Qualified Code(s): I42.9 - Cardiomyopathy, unspecified Code(s): I42.9 - Cardiomyopathy, unspecified Status: Acute Assessment and Plan: Most likely related to CHF ECHO pending Stable at this time (4) Leukocytosis: Qualifiers: Leukocytosis type: unspecified Qualified Code(s): D72.829 - Elevated white blood cell count, unspecified Code(s): D72.829 - Elevated white blood cell count, unspecified Status: Acute Assessment and Plan: Current WBC 15.8 Most likely related to fluid overload Continue to trend Hold on antibiotics Time Spent With Patient Time: 48 minutes Time with patient: Greater than 35 minutes Subjective Date/time seen: 06/23/23829 Interval history: 06/23/23829 patient seems to be doing okay. She did state that she is feeling a little better. She denies any chest pain, shortness a breath, nausea, vomiting, diarrhea . She did state that she has been having intermittent sweating and she also stated that she can not tell if she is urinating or not. She stated that the really odd that she would be incontinent. She is a bilateral AKA. 06/22/23? 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 patient presents to the emergency room due to several days with shortness of breath and swelling? Primary of the left upper extremity had been in to see her primary care physician who? sent? some lab work, including D-dimer which was elevated and patient was prompted to come to the emergency room for further evaluation. patient denies any fevers, rigors, chills, sputum production, cough, nausea, vomiting, diarrhea, abdominal pain, no chest pain, no palpitations, patient has had PND and orthopnea uses a? bed? able to recline to sitting position.? Preliminary workup was significant for chemistry panel with BUN of 20 creatinine of 1.5, brain natriuretic peptide 1100, bicarb 32.? A CT angiogram of the chest was negative for pulmonary embolism however it did showed mild pulmonary edema.? Patient has been admitted for further evaluation management and treatment. Review of Systems Review of Systems: All systems reviewed & are unremarkable except as noted in HPI and below Exam Narrative: General: well-nourished, well-appearing 63-year-old female, sitting up in bed, comfortable, NARD Neuro: awake, alert and oriented x4, speech clear, no focal neuro deficits noted HEENMT: normocephalic, atraumatic, EOMI, sclerae anicteric, moist oral mucosa Respiratory: diminished to auscultation bilaterally without crackles, rhonchi or wheezes, nonlabored breathing Cardio: regular rate, regular rhythm with S1-S2 Abdomen: nondistended, normoactive bowel sounds, soft, nontender to palpation Extremities:
[2023-06-23] MEDS: FUROSEMIDE INJ 40 MG/4 ML VIAL IV PUSH ×2 (09:04→16:49)
[2023-06-23 09:30] LABS: Basophils Absolute Auto 0.1 K/mm3 (0.0-0.1); Basophils Percent Auto 0.5 % (0.2-1.2); Eosinophils Absolute Auto 0.2 K/mm3 (0-0.3); Eosinophils Percent Auto 1.4 % (0-4.4); Hematocrit 39.1 % (37.0-47.0); Hemoglobin 12.7 g/dL (12.0-15.0); Immature Granulocyte Absolute 0.08 K/mm3 (0.00-0.031); Immature Granulocyte Percent A 0.5 % (0-0.5); Lymphocytes Absolute Auto 1.51 K/mm3 (0.9-3.2); Lymphocytes Percent Auto 9.6 % (18.3-44.2); Mean Corpuscular HGB Conc 32.5 g/dl (32-36); Mean Corpuscular Hemoglobin 30.9 pg (26-34); Mean Corpuscular Volume 95.1 fl (80-100); Mean Platelet Volume 8.3 fl (7.4-10.4); Monocytes Percent Auto 6.2 % (2.6-8.5); Neutrophils Absolute Auto 12.9 K/mm3 (1.3-6.7); Neutrophils Percent Auto 81.8 % (45.5-73.1); Platelet Count Result 432 k/mm3 (150-375); Red Blood Count 4.11 M/mm3 (4.2-5.4); Red Cell Distribution Width 14.1 % (11.5-14.5); White Blood Count 15.8 K/mm3 (4.5-10.0)
[2023-06-23 09:40] LABS: Alanine Aminotransferase 21 U/L (6-35); Albumin Level 4.3 g/dL (3.5-5.1); Alkaline Phosphatase 143 U/L (38-126); Anion Gap 9 mmol/L (8-16); Aspartate Amino Transferase 25 U/L (14-36); Bilirubin,Total 0.5 mg/dL (0.2-1.3); Blood Urea Nitrogen 19 mg/dL (7-17); Calcium 9.5 mg/dL (8.4-10.2); Carbon Dioxide 33 mmol/L (22-30); Chloride 96 mmol/L (98-107); Estimated CRCL calculation 33 ml/min; Estimated Glomerular Filt Rate 42; Glucose 118 mg/dL (65-110); Magnesium 1.9 mg/dL (1.6-2.3); Potassium 3.8 mmol/L (3.4-5.0); Sodium 138 mmol/L (137-145)
[2023-06-23 09:50] LABS: NT Pro B Type Natriuretic Pept 2890 pg/mL (19.9-100)
[2023-06-23] MEDS: PERFLUTREN LIPID MICROSPHERES 1.5 ML VIAL DILUTED TO 10 ML TOTAL VOLUME IV PUSH (11:50)
--- NOTE | 2023-06-23 13:13 | IVDEFINITY ---
Prior to administration of IV Definity the patient was educated on the risks and benefits of the imaging enhancing agent including potential adverse side effects. The patient verbalized understanding. Allergies were verified. No exclusion criteria were identified and at least one of the following inclusion criteria were met: 1) physician request, 2) patient technically difficult to image (per the [place] [employer] guidelines of two or more segments not discernable within the apical view), or 3) questionable left ventricular function. ?
[2023-06-23] MEDS: FERROUS SULFATE 325 MG TABLET DR BY MOUTH (20:14)
[2023-06-23] MEDS: ATORVASTATIN 40 MG TABLET 80 MG PO (20:14)
[2023-06-23] MEDS: ARIPiprazole 5 MG TABLET PO (20:14)
[2023-06-23] MEDS: GABAPENTIN 300 MG CAPSULE 600 MG PO (20:14)
--- NOTE | 2023-06-23 21:45 | ECG_ITS ---
Measurements Intervals [place] Rate: 75 P: 250 [place]: 274 QRS: 14 QRSD: 88 T: 58 QT: 430 QTc: 483 Interpretive Statements ELECTRONIC ATRIAL PACEMAKER POSSIBLE INFERIOR MYOCARDIAL INFARCTION , PROBABLY OLD [30 ms Q WAVE IN II/aVF] ABNORMAL RHYTHM ECG COMPARED TO ECG 05/17/2023 21:12:15 NO SIGNIFICANT CHANGES Electronically Signed On 06-24-2023 11:38:29 CDT by Kelsie Lazcano MD
--- NOTE | 2023-06-23 21:50 | PC.NURSE ---
Addendum entered by Carlyn Traore RN 06/23/23 22:39: ekg order due to change on tele Original Note: called MD Brady ekg change and bp 136/24
--- NOTE | 2023-06-23 23:20 | PC.NURSE ---
called MD Brady to report pt ekg electronic atrial pacemaker possible inferior myocardial infarction probably old
[2023-06-24] VITALS (12 sets, daily range): BP systolic 122–140; BP diastolic 61–96; PULSE 80–99; RESP 12–16; TEMP 36.1–36.6; O2SAT 94–100
[2023-06-24] MEDS: LEVOTHYROXINE SODIUM 50 MCG TABLET PO (05:22)
[2023-06-24 06:30] LABS: Basophils Absolute Auto 0.1 K/mm3 (0.0-0.1); Basophils Percent Auto 0.6 % (0.2-1.2); Eosinophils Absolute Auto 0.1 K/mm3 (0-0.3); Eosinophils Percent Auto 0.7 % (0-4.4); Hematocrit 39.5 % (37.0-47.0); Hemoglobin 12.5 g/dL (12.0-15.0); Immature Granulocyte Percent A 0.6 % (0-0.5); Lymphocytes Percent Auto 8.4 % (18.3-44.2); Mean Corpuscular HGB Conc 31.6 g/dl (32-36); Mean Corpuscular Hemoglobin 30.4 pg (26-34); Mean Corpuscular Volume 96.1 fl (80-100); Mean Platelet Volume 8.4 fl (7.4-10.4); Monocytes Absolute Auto 1.4 K/mm3 (0.1-0.6); Neutrophils Absolute Auto 14.5 K/mm3 (1.3-6.7); Neutrophils Percent Auto 81.7 % (45.5-73.1); Platelet Count Result 442 k/mm3 (150-375); Red Blood Count 4.11 M/mm3 (4.2-5.4); Red Cell Distribution Width 14.1 % (11.5-14.5); White Blood Count 17.8 K/mm3 (4.5-10.0)
[2023-06-24 06:43] LABS: Alanine Aminotransferase 20 U/L (6-35); Alkaline Phosphatase 106 U/L (38-126); Anion Gap 8 mmol/L (8-16); Aspartate Amino Transferase 23 U/L (14-36); Bilirubin,Total 0.4 mg/dL (0.2-1.3); Blood Urea Nitrogen 22 mg/dL (7-17); Calcium 8.6 mg/dL (8.4-10.2); Carbon Dioxide 32 mmol/L (22-30); Chloride 96 mmol/L (98-107); Estimated CRCL calculation 33 ml/min; Estimated Glomerular Filt Rate 42; Glucose 143 mg/dL (65-110); Magnesium 1.9 mg/dL (1.6-2.3); Potassium 3.2 mmol/L (3.4-5.0); Sodium 136 mmol/L (137-145)
[2023-06-24 08:40] LABS: Magnesium 1.9 mg/dL (1.6-2.3)
[2023-06-24 08:57] LABS: Procalcitonin 0.1 ng/mL
[2023-06-24 09:11] LABS: Thyroid Stimulating Hormone Reflex 0.707 uIU/mL (0.465-4.68)
[2023-06-24] MEDS: GABAPENTIN 300 MG CAPSULE PO (09:18)
[2023-06-24] MEDS: dilTIAZem HCL CD 240 MG CAP.24HR 480 MG PO (09:18)
[2023-06-24] MEDS: FOLIC ACID 1 MG TABLET PO (09:18)
[2023-06-24] MEDS: FUROSEMIDE INJ 40 MG/4 ML VIAL IV PUSH ×2 (09:18→17:52)
[2023-06-24] MEDS: ASPIRIN 81 MG CHEWABLE TABLET PO (09:18)
[2023-06-24] MEDS: POTASSIUM CHLORIDE 20 MEQ ER TABLET 40 MEQ PO (09:22)
--- NOTE | 2023-06-24 14:42 | PM.IMPN ---
Progress Note: A&P Assessment and Plan (1) CHF (congestive heart failure): Qualifiers: Heart failure chronicity: acute Heart failure type: unspecified Qualified Code(s): I50.9 - Heart failure, unspecified Code(s): I50.9 - Heart failure, unspecified Status: Acute Assessment and Plan: Acute on chronic diastolic CHF with mild LVH and mild MR with moderate diastolic dysfunction by echo. 06/24/2023 continue diuresis and add low-dose valsartan 40 mg daily. (2) YOHANNES (acute kidney injury): Code(s): N17.9 - Acute kidney failure, unspecified Status: Acute Assessment and Plan: 06/24/2023 creatinine is near baseline at 1.3 (3) History of right above knee amputation: Code(s): Z89.611 - Acquired absence of right leg above knee Status: Acute Assessment and Plan: fall precautions (4) History of left above knee amputation: Code(s): Z89.612 - Acquired absence of left leg above knee Status: Acute Assessment and Plan: fall precautions (5) Leukocytosis: Qualifiers: Leukocytosis type: unspecified Qualified Code(s): D72.829 - Elevated white blood cell count, unspecified Code(s): D72.829 - Elevated white blood cell count, unspecified Status: Acute Assessment and Plan: This is chronic but increased from baseline Associated with mild thrombocytosis Procalcitonin is unremarkable Follow-up lab Subjective Date/time seen: 06/24/23 14:43 Interval history: Tolerated diet. Denied shortness of breath or chest pain. Wants to go home. Denied GI or issues. Denied abnormal bleeding. Denied focal weakness. Review of Systems Review of Systems: All systems reviewed & are unremarkable except as noted in HPI and below Exam Narrative: HEENT: PERRL, sclerae nonicteric, pharyngeal mucosa pink and intact NECK: No JVD CHEST: Coarse breath sounds bilaterally with expiratory wheezes no crackles. HEART: NL S1/S2, regular, no murmur ABDOMEN: BS+, soft, nontender, no mass, no bruits EXTREMITIES: No cyanosis, edema, or clubbing NEUROLOGIC: CN intact and symmetric to inspection. MUSCULOSKELETAL: Bilateral AKA. PSYCH: Alert. Oriented to person, place, and time. Objective Data Vital Signs Vital Signs: Vital Signs - 24 hr 06/23/23 17:17 06/23/23 16:00 06/23/23 20:00 Temperature Pulse Rate 84 84 Respiratory Rate Blood Pressure 110/66 Pulse Oximetry Oxygen Delivery Fraction of Inspired Oxygen 06/23/23 21:49 06/23/23 22:44 06/23/23 22:00 Temperature 96.9 F L 96.9 F L Pulse Rate 75 81 75 Respiratory Rate 16 16 Blood Pressure 124/61 124/61 Pulse Oximetry 94 94 Oxygen Delivery Fraction of Inspired Oxygen 06/23/23 20:00 06/24/23 04:00 06/24/23 00:00 Temperature Pulse Rate 81 82 Respiratory Rate Blood Pressure Pulse Oximetry 94 Oxygen Delivery Room Air Fraction of Inspired Oxygen 06/24/23 06:00 06/24/23 08:53 06/24/23 09:16 Temperature 96.9 F L Pulse Rate 88 99 Respiratory Rate 14 14 Blood Pressure 138/61 140/74 Pulse Oximetry 94 94 97 Oxygen Delivery Room Air Fraction of Inspired Oxygen 21 06/24/23 09:20 06/24/23 08:00 06/24/23 12:00 Temperature Pulse Rate 88 98 Respiratory Rate Blood Pressure Pulse Oximetry Oxygen Delivery Room Air Fraction of Inspired Oxygen Intake/Output Intake/Output: Intake & Output 06/21/23 06/22/23 06/23/23 06/24/23 23:59 23:59 23:59 23:59 Intake Total 1144 1110 Output Total 75 1200 900 Balance -75 -56 210 Meds/Results Medications: Active Medications Generic Name Dose Route Start Last Admin Trade Name Freq PRN Reason Stop Dose Admin Albuterol 2.5 mg 06/23/23 01:02 Albuterol Sulfate Neb 2.5 Mg/3 Ml Inh INHALATION BID PRN shortness of breath Aripiprazole 5 mg 06/23/23 21:00 06/23/23 20:14 Aripiprazole 5 Mg Tablet PO 5 mg HS [facility] Administr
[2023-06-24] MEDS: VALSARTAN 40 MG TABLET BY MOUTH (17:52)
[2023-06-24] MEDS: GABAPENTIN 300 MG CAPSULE 600 MG PO (19:57)
[2023-06-24] MEDS: ARIPiprazole 5 MG TABLET PO (19:57)
[2023-06-24] MEDS: ATORVASTATIN 40 MG TABLET 80 MG PO (19:57)
[2023-06-24] MEDS: FERROUS SULFATE 325 MG TABLET DR BY MOUTH (19:57)
[2023-06-24] MEDS: oxyCODONE HCL (*CRX) 5 MG TAB IR 10 MG PO (22:17)
[2023-06-25] VITALS (7 sets, daily range): BP systolic 100–117; BP diastolic 46–70; PULSE 70–91; RESP 13–20; TEMP 36.1–36.9; O2SAT 93–95
[2023-06-25] MEDS: LEVOTHYROXINE SODIUM 50 MCG TABLET PO (05:45)
[2023-06-25 06:13] LABS: Basophils Absolute Auto 0.1 K/mm3 (0.0-0.1); Basophils Percent Auto 0.6 % (0.2-1.2); Eosinophils Absolute Auto 0.4 K/mm3 (0-0.3); Eosinophils Percent Auto 2.2 % (0-4.4); Hematocrit 35.8 % (37.0-47.0); Hemoglobin 11.5 g/dL (12.0-15.0); Immature Granulocyte Absolute 0.08 K/mm3 (0.00-0.031); Immature Granulocyte Percent A 0.5 % (0-0.5); Mean Corpuscular HGB Conc 32.1 g/dl (32-36); Mean Corpuscular Hemoglobin 31.3 pg (26-34); Mean Corpuscular Volume 97.3 fl (80-100); Mean Platelet Volume 8.4 fl (7.4-10.4); Monocytes Absolute Auto 1.7 K/mm3 (0.1-0.6); Monocytes Percent Auto 9.7 % (2.6-8.5); Neutrophils Absolute Auto 12.4 K/mm3 (1.3-6.7); Platelet Count Result 396 k/mm3 (150-375); Red Blood Count 3.68 M/mm3 (4.2-5.4); White Blood Count 17.5 K/mm3 (4.5-10.0)
[2023-06-25 06:24] LABS: Anion Gap 6 mmol/L (8-16); Blood Urea Nitrogen 26 mg/dL (7-17); Calcium 8.3 mg/dL (8.4-10.2); Carbon Dioxide 29 mmol/L (22-30); Chloride 93 mmol/L (98-107); Estimated CRCL calculation 22 ml/min; Estimated Glomerular Filt Rate 25; Glucose 117 mg/dL (65-110); Potassium 3.5 mmol/L (3.4-5.0); Sodium 128 mmol/L (137-145)
[2023-06-25] MEDS: VALSARTAN 40 MG TABLET PO (08:05)
[2023-06-25] MEDS: ASPIRIN 81 MG CHEWABLE TABLET PO (08:05)
[2023-06-25] MEDS: dilTIAZem HCL CD 240 MG CAP.24HR 480 MG PO (08:05)
[2023-06-25] MEDS: FOLIC ACID 1 MG TABLET PO (08:07)
[2023-06-25] MEDS: GABAPENTIN 300 MG CAPSULE PO (08:07)
[2023-06-25] MEDS: FUROSEMIDE INJ 40 MG/4 ML VIAL IV PUSH (08:07)
[2023-06-25] MEDS: SODIUM CHLORIDE 1 GM TABLET 2 GM PO (08:17)
--- NOTE | 2023-06-25 09:12 | PM.DS ---
DS: Admitting Diagnosis Discharge Date 06/25/2023 Admitting Diagnosis Acute on chronic diastolic CHF DS: Discharge Diagnosis Discharge Diagnosis (1) CHF (congestive heart failure): Qualifiers: Heart failure chronicity: acute Heart failure type: unspecified Qualified Code(s): I50.9 - Heart failure, unspecified Code(s): I50.9 - Heart failure, unspecified Status: Acute Assessment and Plan: Acute on chronic diastolic CHF with mild LVH and mild MR with moderate diastolic dysfunction by echo. 06/24/2023 continue diuresis and add low-dose valsartan 40 mg daily. 06/25/23 stopped fursemide and valsartan due to mild hyponatremia and creatinine elevation to 2.0 06/25 PM sodium improved to 132 and creatinine stable at 2.00 (2) YOHANNES (acute kidney injury): Code(s): N17.9 - Acute kidney failure, unspecified Status: Acute Assessment and Plan: 06/24/2023 creatinine is near baseline at 1.3, 06/25/23 2.00 in AM. (3) History of right above knee amputation: Code(s): Z89.611 - Acquired absence of right leg above knee Status: Acute Assessment and Plan: fall precautions (4) History of left above knee amputation: Code(s): Z89.612 - Acquired absence of left leg above knee Status: Acute Assessment and Plan: fall precautions (5) Leukocytosis: Qualifiers: Leukocytosis type: unspecified Qualified Code(s): D72.829 - Elevated white blood cell count, unspecified Code(s): D72.829 - Elevated white blood cell count, unspecified Status: Acute Assessment and Plan: This is chronic but increased from baseline Associated with mild thrombocytosis Procalcitonin is unremarkable 06/25/2023 remains stable at 17.5, platelets 396k DS: Summary Hospital Course Reason for hospitalization: SOB Hospital Course: This 63-year-old female with multiple medical issues was admitted [facility] on 06/22/2023 due to increasing shortness of breath. Imaging as outlined below revealed pulmonary edema and pulmonary hypertension and echocardiogram was consistent with diastolic congestive heart failure. She was diuresed with IV furosemide and improved dramatically. However creatinine increased from baseline of 1.5-2.0. Sodium decreased to 128. With discontinuation of furosemide and sodium chloride supplement p.o. sodium improved to 132 and creatinine remained stable at 2.0. She was feeling good not require oxygen wished to go home. She was to resume her home medication and follow low salt restriction and repeat labs in 2 days. CTA Pulmonary: 1. No pulmonary embolus. 2. Mild emphysema. 3. Mild pulmonary edema. 4. Moderate stenosis of left common carotid artery and severe stenosis of the brachiocephalic trunk. RUE Venous Doppler: 1. No evidence of deep venous thrombosis. EKG: ELECTRONIC ATRIAL PACEMAKER POSSIBLE INFERIOR MYOCARDIAL INFARCTION , PROBABLY OLD [30 ms Q WAVE IN II/aVF] ABNORMAL RHYTHM ECG COMPARED TO ECG 05/17/2023 21:12:15 NO SIGNIFICANT CHANGES Echocardiogram: 1. Definity contrast administered improved wall motion interpretation. ? 2. Left ventricular chamber dimension is normal. ? 3. Left ventricular systolic function is normal, estimated at 65-70%. ? 4. There is mild concentric increased left ventricular wall thickness. ? 5. The left ventricular diastolic function is grade I diastolic dysfunction. ? 6. E/e' 9 is minimally elevated. ? 7. Mild right ventricular hypertrophy. ? 8. Left atrial chamber dimension is moderately enlarged. ? 9. There is mild aortic valve sclerosis. ? 10. There is mild mitral valve regurgitation. ? 11. There is trace tricuspid valve regurgitation. ? 12. Moderate pulmonary hypertension, estimated pulmonary arterial systolic pressure is 54 mmHg. Time Spent with Patient Time attestation: Total time spent providing and/or coordinating discharge services: Exam Narrative: HEENT: PERRL, sclerae nonicteric, phary
[2023-06-25 13:30] LABS: Albumin Level 3.7 g/dL (3.5-5.1); Anion Gap 7 mmol/L (8-16); Blood Urea Nitrogen 26 mg/dL (7-17); Calcium 8.3 mg/dL (8.4-10.2); Carbon Dioxide 32 mmol/L (22-30); Chloride 93 mmol/L (98-107); Estimated CRCL calculation 22 ml/min; Estimated Glomerular Filt Rate 25; Glucose 164 mg/dL (65-110); Phosphorus 4.9 mg/dL (2.5-4.5); Potassium 3.4 mmol/L (3.4-5.0); Sodium 132 mmol/L (137-145)
== END 2023-06-25 15:05 | disposition home or self-care (01) | DRG 292 ==
LOC: ANHED 18:12 → ANH3MEDSUR 19:33
PROVIDERS: Nurse Practitioner; Admitting Provider Student in an Organized Health Care Education/Training Program; Emergency Provider Student in an Organized Health Care Education/Training Program; PCP Family Medicine; Visit Provider Internal Medicine
DX: I50.33 Acute on chronic diastolic (congestive) heart failure (principal); I42.9 Cardiomyopathy, unspecified; N17.9 Acute kidney failure, unspecified; D75.839 Thrombocytosis, unspecified; D72.829 Elevated white blood cell count, unspecified; D64.9 Anemia, unspecified; F32.A Depression, unspecified; I73.9 Peripheral vascular disease, unspecified; J43.9 Emphysema, unspecified; Z86.73 Personal history of transient ischemic attack (TIA), and cerebral infarction without residual deficits; Z89.612 Acquired absence of left leg above knee; Z89.611 Acquired absence of right leg above knee; Z79.82 Long term (current) use of aspirin
CPT/HCPCS: 36415; 71275; 80048; 80053; 80069; 81001; 83735; 83880; 84145; 84443; 84484; 85025; 86140; 93005; 93971; 96374; 96375; 96376; 99285; A9270; C8929; G0378; J1940; Q9957; Q9967

== ENCOUNTER 2023-10-26 17:29 | Emergency (ER) | payer OTHER, SELFPAY ==
[2023-10-26 17:52] VITALS: BP 159/62; PULSE 71; RESP 18; TEMP 36.4; O2SAT 90
--- NOTE | 2023-10-26 17:56 | PC.NURSE ---
pt arrives in wheel chair and is a double amputee and can't ambulate. Pt does not want to be weighed and does not know her height since her bilateral leg amputation.
--- NOTE | 2023-10-26 18:36 | ED.GENADULT ---
HPI - General Adult General Chief complaint: Ear Stated complaint: Sore Throat/Left Ear Irritation Time Seen by Provider: 10/26/23 18:37 Source: patient, RN notes reviewed and old records reviewed Mode of arrival: ambulatory Limitations: no limitations History of Present Illness HPI narrative: 63-year-old female presents to the [facility] with complaints of left-sided swollen tongue for the last 10-14 days. Left ear pain that started this morning. Has been scratching her ear with her nails. Denies using Q-tips Patient has some swelling anterior ear as well. States has been going on for 10-14 days. States that she contacted her primary care provider called her and some amoxicillin, nystatin for thrush. Denies any trouble eating, breathing. Denies any trouble chewing. Firm area noted to the left side of the tongue Treatments prior to arrival: other (Amoxicillin) Related Data Home Medications Medication Instructions Recorded Confirmed atorvastatin 80 mg tablet 80 mg PO HS 08/19/22 10/26/23 diltiazem HCl 240 mg 480 mg PO DAILY 08/19/22 10/26/23 capsule,extended release 24 hr ferrous sulfate 325 mg (65 mg 325 mg PO HS 08/19/22 10/26/23 iron) tablet (FeroSul) folic acid 1 mg tablet 1 mg PO DAILY 08/19/22 10/26/23 gabapentin 300 mg capsule 300 mg PO DAILY 08/19/22 10/26/23 ipratropium 0.5 mg-albuterol 3 mg 3 ml inhalation BID PRN shortness 08/19/22 10/26/23 (2.5 mg base)/3 mL nebulization of breath soln levothyroxine 50 mcg tablet 50 mcg PO DAILY 08/19/22 10/26/23 Aspirin Child 81 mg PO DAILY 05/18/23 10/26/23 aripiprazole 5 mg tablet 5 mg PO HS 05/18/23 10/26/23 gabapentin 300 mg capsule 600 mg PO HS 05/18/23 10/26/23 oxycodone 10 mg tablet 10 mg PO Q12H PRN Pain 05/18/23 10/26/23 Allergies Allergy/AdvReac Type Severity Reaction Status Date / Time No Known Allergies Allergy Verified 10/26/23 18:42 Review of Systems Review of Systems: All systems reviewed & are unremarkable except as noted in HPI and below Constitutional: Constitutional: Reports no additional constitutional complaints Eyes: Eyes: Reports no additional eye complaints ENT: Reports as per HPI Cardiovascular: Cardiovascular: Reports no additional cardiovascular complaints, Denies chest pain and Denies dyspnea Respiratory: Respiratory: Reports no additional respiratory complaints, Denies chest congestion, Denies cough and Denies dyspnea Gastrointestinal: Gastrointestinal: Reports no additional gastrointestinal complaints, Denies abdominal pain, Denies nausea and Denies vomiting Musculoskeletal: Musculoskeletal: Reports no additional musculoskeletal complaints Integumentary/Breasts: Skin/Breast: Reports system reviewed and no additional complaints, except as docu Neurologic: Reports system reviewed and no additional complaints, except as documented Psychiatric: Psychiatric: Reports no additional psychiatric complaints Allergic/Immunologic: Allergic/Immunologic: Reports no additional allergic/immunologic complaints [facility] Past Medical History Medical History Anemia Cardiomyopathy Depressed History of left above knee amputation History of right above knee amputation Peripheral vascular disease Stroke Surgical History Surgical History S/P femoral-femoral bypass surgery Family History Family History Father Chronic obstructive pulmonary disease Social History Social History Smoking packs per day: 2 Smoking cigarettes per day: 40.0 Smoking status: Former smoker Tobacco type: cigarettes Smoking end date: 03/30/21 Additional smoking assessment comments: started when she was 17 Alcohol intake: former Substance use: current Substance use type: marijuana Other substance usage details: maribel rojo
== END 2023-10-26 18:55 | disposition home or self-care (01) ==
PROVIDERS: Emergency Provider Nurse Practitioner; PCP Family Medicine
DX: S00.412A Abrasion of left ear, initial encounter (principal); R59.0 Localized enlarged lymph nodes; F41.9 Anxiety disorder, unspecified; F32.A Depression, unspecified; Z79.899 Other long term (current) drug therapy; Z79.82 Long term (current) use of aspirin; Z79.891 Long term (current) use of opiate analgesic; Z86.73 Personal history of transient ischemic attack (TIA), and cerebral infarction without residual deficits; Z87.891 Personal history of nicotine dependence
CPT/HCPCS: 99213; G0463

== ENCOUNTER 2023-12-07 06:53 | Inpatient (IN) | payer OTHER, SELFPAY ==
[2023-12-07] VITALS (47 sets, daily range): BP systolic 96–141; BP diastolic 46–83; PULSE 57–99; RESP 13–24; TEMP 36.1–36.8; O2SAT 84–100; BMI 27.3
--- NOTE | ~2023-12-07 | XR_ITS ---
Portable chest x-ray Comparison: 06/21/2023 Clinical History: Dyspnea Findings: There is minimal left pleural effusion with left basilar consolidation. There is mild hazi ness in the perihilar regions and right lung base. Cardiomediastinal silhouette is stable. Bones and soft tissues are unremarkable. Impression: Bilateral airspace disease, most confluent at the left lung base, which could reflect pulmonary edema /atelectasis versus possibly pneumonia. Correlate clinically. Minimal left pleural effusion. Reviewed, dictated and finalized at [facility]. ETHODS CONSULTANT Impression: Bilateral airspace disease, most confluent at the left lung base, which could r eflect pulmonary edema/atelectasis versus possibly pneumonia. Correlate clinica lly. Minimal left pleural effusion.
--- NOTE | ~2023-12-07 | XR_ITS ---
EXAMINATION: XR chest 1V portable INDICATION: Hypoxia TECHNIQUE: Portable AP chest at 0506 hours COMPARISON: 12/07/2023 FINDINGS: There are increasing airspace opacities of the lung bases. There is a small left pleural ef fusion. No pneumothorax is identified. The cardiomediastinal silhouette is stable. IMPRESSION: 1. Increasing bibasilar airspace opacities, consistent with atelectasis versus pneumonia. Reviewed, dictated and finalized at location F. RESS FILLING MACHINE TENDER
--- NOTE | ~2023-12-07 | XR_ITS ---
Portable chest x-ray Comparison: 12/09/2023 Clinical History: Shortness of breath Findings: Small left pleural effusion with left basilar consolidation present. There is minimal hazi ness the left perihilar region right lung base. Cardiomediastinal silhouette is stable. Bones and so ft tissues are unremarkable. Impression: Small left pleural effusion with left basilar pulmonary edema/atelectasis versus pneumonia. Mild haziness left perihilar region and right lung base, which could reflect additional mild pulmonar y edema or infection. Reviewed, dictated and finalized at [facility]. IPLEX OPERATOR Impression: Small left pleural effusion with left basilar pulmonary edema/atelectasis versu s pneumonia. Mild haziness left perihilar region and right lung base, which could reflect ad ditional mild pulmonary edema or infection.
--- NOTE | ~2023-12-07 | CT_ITS ---
Clinical Indication: Hypoxia CT Scan of the Chest with Contrast: Technique: Contiguous sections were acquired throughout the chest after intravenous administration of 100 cc of Omnipaque 350. Dose reduction technique was used on this scan by utilizing automated expos ure control and iterative reconstruction technique. The dose-length product (DLP) was 407.45 mGy-cm. COMPARISON: 06/22/2023 Findings: There is no evidence of any significant mediastinal, hilar or axillary lymphadenopathy. There is no f illing defect in the pulmonary arterial tree to suggest pulmonary embolus. There is no evidence of ao rtic dissection or aneurysm. No pericardial effusion. There are minimal bilateral pleural effusions. There is probable bibasilar atelectatic change and/or mild pulmonary edema. Probable minimal intersti tial edema. There is mild to moderate emphysema in the upper lobes. Images through the upper abdomen reveal no abnormalities. Impression: No evidence of pulmonary embolus, aortic dissection, or aortic aneurysm. Minimal pleural effusions with probable bibasilar atelectatic change and mild pulmonary edema, as abo ve. Correlate clinically for pneumonia. Mild to moderate upper lobe emphysema. Reviewed, dictated and finalized at location . TY ENGINEER PRESSURE VESSELS Impression: No evidence of pulmonary embolus, aortic dissection, or aortic aneurysm. Minimal pleural effusions with probable bibasilar atelectatic change and mild p ulmonary edema, as above. Correlate clinically for pneumonia. Mild to moderate upper lobe emphysema.
--- NOTE | 2023-12-07 07:09 | ECG_ITS ---
Measurements Intervals [place] Rate: 71 P: 54 [place]: 149 QRS: 13 QRSD: 86 T: 50 QT: 411 QTc: 448 Interpretive Statements SINUS RHYTHM WITH OCCASIONAL SUPRAVENTRICULAR PREMATURE COMPLEXES COMPARED TO ECG 06/23/2023 23:12:56 SINUS RHYTHM NOW PRESENT Electronically Signed On 12-07-2023 11:25:47 BANDAGE WINDING MACHINE OPERATOR by Conrad Oliveira M.D.
--- NOTE | 2023-12-07 07:25 | ED.GENADULT ---
HPI - General Adult General Chief complaint: Shortness of Breath/Dyspnea Stated complaint: sob Time Seen by Provider: 12/07/23 07:03 History of Present Illness HPI narrative: Patient is a 63-year-old female who presents to the emergency department this morning complaining of shortness of breath. Patient states that while she was at home overnight she became more short of breath and checked her pulse oximetry and noted that her oxygen was in the mid 50s. Patient's is currently present at bedside and does provide part of the history of present illness. He states that her oxygen has been averaging in the high 80s for the past few days as she has been struggling with an upper respiratory infection and coughing. Patient also does have a history of COPD secondary to add a long history of tobacco use, however, patient quit within the last 2 years secondary to bilateral lower extremity amputations due to peripheral vascular disease. Patient denies any additional symptoms including chest pain, nausea, vomiting, abdominal pain, dysuria, hematuria, constipation, diarrhea, melena, hematochezia, fevers or chills. Patient also denies any headaches, dizziness, lightheadedness, blurry visions, focal weakness, numbness and or tingling. There are no other modifying, alleviating, or precipitating factors at this time. Related Data Home Medications Medication Instructions Recorded Confirmed atorvastatin 80 mg tablet 80 mg PO HS 08/19/22 10/26/23 diltiazem HCl 240 mg 480 mg PO DAILY 08/19/22 10/26/23 capsule,extended release 24 hr ferrous sulfate 325 mg (65 mg 325 mg PO HS 08/19/22 10/26/23 iron) tablet (FeroSul) folic acid 1 mg tablet 1 mg PO DAILY 08/19/22 10/26/23 gabapentin 300 mg capsule 300 mg PO DAILY 08/19/22 10/26/23 ipratropium 0.5 mg-albuterol 3 mg 3 ml inhalation BID PRN shortness 08/19/22 10/26/23 (2.5 mg base)/3 mL nebulization of breath soln levothyroxine 50 mcg tablet 50 mcg PO DAILY 08/19/22 10/26/23 Aspirin Child 81 mg PO DAILY 05/18/23 10/26/23 aripiprazole 5 mg tablet 5 mg PO HS 07/20/23 12/28/23 gabapentin 300 mg capsule 600 mg PO HS 05/18/23 10/26/23 oxycodone 10 mg tablet 10 mg PO Q12H PRN Pain 05/18/23 10/26/23 Allergies Allergy/AdvReac Type Severity Reaction Status Date / Time No Known Allergies Allergy Verified 12/07/23 07:11 Review of Systems Review of Systems: All systems are reviewed and are negative unless stated otherwise in the HPI. [facility] Past Medical History Medical History Anemia Cardiomyopathy Depressed Peripheral vascular disease Stroke Surgical History Surgical History History of left above knee amputation History of right above knee amputation S/P femoral-femoral bypass surgery Family History Family History Father Chronic obstructive pulmonary disease Social History Social History Smoking packs per day: 2 Smoking cigarettes per day: 40.0 Smoking status: Former smoker Tobacco type: cigarettes Smoking end date: 03/30/21 Additional smoking assessment comments: started when she was 17 Alcohol intake: former Substance use: current Substance use type: marijuana Other substance usage details: gummies Lack of Transportation: No Lack of Food: Never True Current Housing: Decline to Answer Concerned About Future Housing: No Difficulty Paying Gas/Electric Bills: No Difficulty Paying for Meds: No Currently Unemployed: No Education: High School Diploma/GED Difficulty w/ Childcare or Family Care: No Spiritual care concerns: No Exam Narrative: General: Alert, awake, afebrile, in mild respiratory distress. HEENT: PERRL, no rhinorrhea, no post nasal drip, oropharynx clear. Neck: Trachea midline, no JVD, no lymphadenopa
[2023-12-07 07:27] LABS: Fractional Inspired Oxygen 100 %; HCO3 VBG 26.2 mEq/l (24.0-30.0); PCO2 VBG 55.3 mmHg (42.0-48.0); PO2 VBG 50.6 mmHg (35.0-45.0); pH VBG 7.293 (7.300-7.400)
[2023-12-07 07:29] LABS: Device NON-REBREATHER MASK
[2023-12-07 07:30] LABS: Basophils Absolute Auto 0.1 K/mm3 (0.0-0.1); Basophils Percent Auto 0.3 % (0.2-1.2); Eosinophils Absolute Auto 0.2 K/mm3 (0-0.3); Eosinophils Percent Auto 0.7 % (0-4.4); Hematocrit 34.9 % (37.0-47.0); Hemoglobin 10.8 g/dL (12.0-15.0); Immature Granulocyte Absolute 0.23 K/mm3 (0.00-0.031); Lymphocytes Absolute Auto 1.31 K/mm3 (0.9-3.2); Lymphocytes Percent Auto 5.7 % (18.3-44.2); Mean Corpuscular HGB Conc 30.9 g/dl (32-36); Mean Corpuscular Hemoglobin 30.9 pg (26-34); Mean Platelet Volume 8.6 fl (7.4-10.4); Monocytes Percent Auto 8.8 % (2.6-8.5); Neutrophils Absolute Auto 19.2 K/mm3 (1.3-6.7); Neutrophils Percent Auto 83.5 % (45.5-73.1); Platelet Count Result 341 k/mm3 (150-375); Red Blood Count 3.49 M/mm3 (4.2-5.4); Red Cell Distribution Width 16.9 % (11.5-14.5)
[2023-12-07 07:41] LABS: Alanine Aminotransferase 14 U/L (6-35); Albumin Level 3.4 g/dL (3.5-5.1); Alkaline Phosphatase 107 U/L (38-126); Anion Gap 4 mmol/L (8-16); Aspartate Amino Transferase 21 U/L (14-36); Bilirubin,Total 0.8 mg/dL (0.2-1.3); Blood Urea Nitrogen 27 mg/dL (7-17); Calcium 8.7 mg/dL (8.4-10.2); Carbon Dioxide 31 mmol/L (22-30); Chloride 97 mmol/L (98-107); Estimated CRCL calculation 35 ml/min; Estimated Glomerular Filt Rate 42; Glucose 125 mg/dL (65-110); Potassium 3.7 mmol/L (3.4-5.0); Sodium 132 mmol/L (137-145)
[2023-12-07 07:42] LABS: Partial Thromboplastin Time 38.9 SECONDS (22.3-36.8)
[2023-12-07 07:54] LABS: D Dimer 0.94 ug/mL (<0.48); NT Pro B Type Natriuretic Pept 3080 pg/mL (19.9-100); Platelet Estimate Adequate (Adequate); Troponin I 0.038 ng/mL (0.000-0.034)
[2023-12-07 07:55] LABS: Anisocytosis 1+ (NORMAL); Poikilocytosis 1+ (NORMAL); Polychromasia 1+ (NORMAL); Schistocytes Rare (NORMAL)
[2023-12-07] MEDS: IPRATROPIUM 0.5 MG/ALBUTEROL SULFATE 2.5 MG AMPUL.NEB 3 ML INHALATION ×2 (08:33→20:34)
[2023-12-07 08:51] LABS: Lactic Acid Reflex 0.8 mmol/L (0.7-2.0)
[2023-12-07] MEDS: AZITHROMYCIN 500 MG/NS 250 ML 500 MG/250 ML BAG 250 MG IVPB (09:21)
[2023-12-07 09:30] LABS: Influenza A QL RT-PCR Negative (Negative); Influenza B QL RT-PCR Negative (Negative); RSV RNA, RT-PCR Negative (Negative); SARS-CoV-2 RNA PCR Negative (Negative)
--- NOTE | 2023-12-07 10:17 | ECG_ITS ---
Measurements Intervals [place] Rate: 60 P: 32 [place]: 146 QRS: 19 QRSD: 90 T: 57 QT: 439 QTc: 442 Interpretive Statements SINUS RHYTHM WITH OCCASIONAL SUPRAVENTRICULAR PREMATURE COMPLEXES COMPARED TO ECG 12/07/2023 07:14:47 NO SIGNIFICANT CHANGES Electronically Signed On 12-07-2023 11:28:20 ADJUNCT PSYCHOLOGY INSTRUCTOR by Conrad Oliveira M.D.
[2023-12-07 10:51] LABS: Troponin I 0.046 ng/mL (0.000-0.034)
--- NOTE | 2023-12-07 14:00 | PM.IMHP ---
H&P: HPI History of Present Illness Date/Time: 12/07/23 14:00 Chief Complaint: Shortness of breath. Narrative: This is a 63-year-old female with history of chronic obstructive pulmonary disease, moderate pulmonary hypertension, grade 1 diastolic dysfunction, hypertension, chronic kidney disease, stroke, peripheral vascular disease status post bilateral [id number] amputations, MRSA infection, hypothyroidism, and other comorbidities who presented to the emergency department via private vehicle from home for evaluation of shortness of breath. She is a fair historian no some of the following is supplemented via a review of her EMR. She reports having a runny nose and cough for a little over a week although her cough has been getting worse the last several days. Family members have encouraged her to go to the doctor however she has continued to decline. This morning she apparently had a coughing fit and when and daughter checked her pulse ox it was reportedly in the 40s and they brought her in for evaluation. On arrival to triage her SpO2 was 58% on room air and she was placed on a non-rebreather with improvement in her oxygenation and symptoms. At the time my evaluation her SpO2 is 94% on 8 L. She reports that she is feeling much better and she has no current complaints. She denies fever, chills, sweats, sore throat, chest and pleuritic pain, dysphagia and concerns for aspiration, orthopnea, paroxysmal nocturnal dyspnea, nausea, vomiting, and diarrhea. In the ED: She was afebrile on arrival with stable blood pressures. Labs were significant for a WBC count of 23.0, hemoglobin 10.8, D-dimer 0.94, VBG pH 7.293, VBG pCO2 55.3, VBG HC03 26.2, sodium 132, creatinine 1.30, proBNP 3080, troponin 0.038. She was negative for influenza, RSV, and COVID. Chest CTA was negative for pulmonary embolus. Minimal pleural effusions with probable bibasilar atelectatic change in mild pulmonary edema noted as well as mild to moderate upper lobe emphysema. EKG showed sinus rhythm with occasional supraventricular premature complexes but no other significant findings. She was given a DuoNeb as well as a dose of azithromycin and ceftriaxone for possible underlying pneumonia and she is being admitted in this setting for treatment and close monitoring. Review of Systems Review of Systems: Twelve systems were reviewed and are negative except for as per HPI. PMFSH Past Medical History Medical History Anemia C. difficile diarrhea Cardiomyopathy Chronic kidney disease, stage 3 Chronic obstructive pulmonary disease Depression Diastolic dysfunction Hypothyroidism MRSA infection Peripheral vascular disease Pulmonary hypertension Stroke Surgical History Surgical History History of colonoscopy with polypectomy History of hysterectomy History of left above knee amputation History of right above knee amputation History of tubal ligation Status post femoral-popliteal bypass surgery Family History Family History Father Chronic obstructive pulmonary disease Social History Social History Social History: Surrogate medical decision maker: Vicente Plata, spouse. Code status: Full code. Smoking packs per day: 2 Smoking cigarettes per day: 40.0 Years smoked: 43 Smoking pack-years: 86.00 Smoking status: Former smoker Tobacco type: cigarettes Second hand tobacco smoke exposure: No Smoking end date: 03/30/21 Alcohol intake: former Substance use: current Substance use type: marijuana Other substance usage details: Occasional marijuana edibles for phantom pain. Do You Feel Safe in your Home?: Yes Lack of Transportation: No Lack of Food: Never True Current Housing: I Have Housing Concerned About Future Housing:
--- NOTE | 2023-12-07 14:03 | ADMIMU ---
This patient, Pamela Plata, was admitted to IMU status, and placed in IMU Room 209-01. Patient/family oriented to hospital policies and general routines including ID bracelet, bed and alarms, visiting hours, pain management, procedures, bathroom and other care routines, personal items, smoking policy, room service/diet, and visiting hours. Valuables list has been completed. Information on how to activate the Rapid Response Team has been discussed. Patient/Family are encouraged to report perceived risks to care and to ask questions if they do not understand what they are told or what they should do.
[2023-12-07 15:29] LABS: Troponin I 0.035 ng/mL (0.000-0.034)
[2023-12-07 15:44] LABS: CRP 14.1 mg/dL (<1.0)
[2023-12-07 16:12] LABS: Procalcitonin 0.4 ng/mL
[2023-12-07] MEDS: guaiFENesin 12 HR 600 MG TABCR PO (20:03)
[2023-12-07] MEDS: ARIPiprazole 5 MG TABLET PO (20:04)
[2023-12-07] MEDS: ATORVASTATIN 40 MG TABLET 80 MG PO (20:04)
[2023-12-07] MEDS: GABAPENTIN 300 MG CAPSULE 600 MG PO (20:04)
[2023-12-07] MEDS: oxyCODONE HCL (*CRX) 5 MG TAB IR 10 MG PO (20:46)
[2023-12-07] MEDS: FUROSEMIDE INJ 40 MG/4 ML VIAL 20 MG IV PUSH (22:49)
[2023-12-07] MEDS: methylPREDNISolone SOD SUCC 125 MG VIAL 60 MG IV PUSH (22:49)
[2023-12-07 22:54] LABS: Alveolar/Arterial O2 Gradient 247.9 mmHg; Base Excess ABG 5.8 mEq/l (+/-2.0); Carboxyhemoglobin 0.3 % THb (0-2.0); Fractional Inspired Oxygen 52 %; HCO3 ABG 32.2 mEq/l (22.0-26.0); Methemoglobin ABG 0.6 %THb (0-1.5); Oxygen Content ABG 12.8 %vol (16.0-22.0); Oxygen Saturation ABG 89.7 % (95.0-100.0); PCO2 ABG 56.5 mmHg (35.0-45.0); PO2 ABG 59.6 mmHg (80.0-100.0); PO2 FiO2 Ratio Arterial Blood 1.15 %; Reduced Hemoglobin 11.7 %THb (0-5.0); Total Hemoglobin 10.4 g/dL (12.0-18.0); pH ABG 7.374 (7.350-7.450)
[2023-12-07 22:57] LABS: Device HIGH FLOW NASAL CANN; Modified Allen's Test Pass; Oxyhemoglobin 87.4 % THb (90.0-100.0); Site Drawn LEFT BRACHIAL
[2023-12-08] VITALS (27 sets, daily range): BP systolic 124–172; BP diastolic 48–69; PULSE 60–99; RESP 16–22; TEMP 36.3–36.6; O2SAT 91–100
[2023-12-08] MEDS: IPRATROPIUM 0.5 MG/ALBUTEROL SULFATE 2.5 MG AMPUL.NEB 3 ML INHALATION ×4 (03:09→21:59)
[2023-12-08 05:36] LABS: Hematocrit 33.4 % (37.0-47.0); Hemoglobin 10.4 g/dL (12.0-15.0); Mean Corpuscular HGB Conc 31.1 g/dl (32-36); Mean Corpuscular Hemoglobin 31.1 pg (26-34); Mean Platelet Volume 8.6 fl (7.4-10.4); Platelet Count Result 299 k/mm3 (150-375); Red Blood Count 3.34 M/mm3 (4.2-5.4); Red Cell Distribution Width 16.4 % (11.5-14.5); White Blood Count 18.4 K/mm3 (4.5-10.0)
[2023-12-08 05:41] LABS: Anion Gap 4 mmol/L (8-16); Blood Urea Nitrogen 28 mg/dL (7-17); Calcium 8.7 mg/dL (8.4-10.2); Carbon Dioxide 35 mmol/L (22-30); Chloride 96 mmol/L (98-107); Estimated CRCL calculation 42 ml/min; Estimated Glomerular Filt Rate 46; Glucose 177 mg/dL (65-110); Magnesium 1.8 mg/dL (1.6-2.3); Potassium 3.6 mmol/L (3.4-5.0); Sodium 135 mmol/L (137-145)
[2023-12-08] MEDS: methylPREDNISolone SOD SUCC 125 MG VIAL 60 MG IV PUSH ×3 (05:43→18:04)
[2023-12-08] MEDS: LEVOTHYROXINE SODIUM 50 MCG TABLET PO (05:43)
[2023-12-08 06:32] LABS: Thyroid Stimulating Hormone Reflex 0.228 uIU/mL (0.465-4.68)
[2023-12-08 08:33] LABS: Total Triiodothyronine (T3) 0.77 NG/ML (0.97-1.69)
[2023-12-08] MEDS: FOLIC ACID 1 MG TABLET PO (08:50)
[2023-12-08] MEDS: dilTIAZem HCL CD 240 MG CAP.24HR 480 MG PO (08:51)
[2023-12-08] MEDS: guaiFENesin 12 HR 600 MG TABCR PO ×2 (08:51→20:17)
[2023-12-08] MEDS: FUROSEMIDE 20 MG TABLET PO (08:51)
[2023-12-08] MEDS: GABAPENTIN 300 MG CAPSULE 600 MG PO (08:51)
[2023-12-08] MEDS: POTASSIUM CHLORIDE 10 MEQ ER TABLET PO (08:51)
[2023-12-08] MEDS: ASPIRIN 81 MG ENTERIC TABLET PO (08:51)
[2023-12-08] MEDS: AZITHROMYCIN 250 MG TABLET PO (08:51)
--- NOTE | 2023-12-08 15:07 | PM.IMPN ---
Progress Note: A&P Assessment and Plan (1) Acute hypoxic respiratory failure: Code(s): J96.01 - Acute respiratory failure with hypoxia Status: Acute (2) Pneumonia: Code(s): J18.9 - Pneumonia, unspecified organism Status: Acute (3) COPD exacerbation: Code(s): J44.1 - Chronic obstructive pulmonary disease with (acute) exacerbation Status: Acute (4) Elevated troponin: Code(s): R79.89 - Other specified abnormal findings of blood chemistry Status: Acute (5) Diastolic dysfunction: Code(s): I51.89 - Other ill-defined heart diseases Status: Acute (6) Chronic kidney disease, stage 3: Code(s): N18.30 - Chronic kidney disease, stage 3 unspecified Status: Acute (7) Hypothyroidism: Code(s): E03.9 - Hypothyroidism, unspecified Status: Acute (8) Peripheral vascular disease: Code(s): I73.9 - Peripheral vascular disease, unspecified Status: Acute Plan The patient presented to the emergency department for evaluation of shortness of breath and low oxygen saturations. She required oxygen supplementation via nasal cannula upon arrival to the ED. no prior oxygen use at home prior to the admission. WBC count 23,000. Creatinine of 1.3 which is at baseline. Serial troponin flat. Chest x-ray with bilateral airspace disease most confluent at the left lung base which could represent pulmonary edema/atelectasis is versus possibly pneumonia. Minimal left pleural effusion. Chest CTA was negative for pulmonary embolism but did show findings of possible pneumonia and/or mild pulmonary edema. She has evidence of emphysema on that CT and clinically has a COPD exacerbation as well. She has been started on azithromycin and ceftriaxone for suspected pneumonia. Continue p.o. Lasix as she does not look acutely volume overloaded. She has also been started on scheduled bronchodilators and Solu-Medrol given significant wheezing on exam. Sputum to be attempted for culture. Check Legionella pneumococcal antigens as well as mycoplasma IgM. Troponin is mildly elevated and will be trended. She has no complaints of chest pain and it is likely that the troponins are elevated in the setting of profound hypoxia. Her chronic kidney disease stable on review of previous labs. Blood pressures were reviewed and they have been stable though she has had intermittent softer blood pressures. Her home medications will be reviewed and resumed as appropriate. DVT prophylaxis enoxaparin Subjective Date/time seen: 12/08/23 15:07 Interval history: Feeling better wants to go home. Oxygen requirement at 7 L no oxygen prior to the admission Review of Systems Review of Systems: All systems reviewed & are unremarkable except as noted in HPI and below Exam Narrative: General: Well-appearing female sitting up in bed in no acute distress. HEENT: A bit hard of hearing. PERRL, EOMI. Sclera anicteric. Oral mucosa moist. Neck: Supple. No JVD. Respiratory: Respirations are nonlabored and she is speaking in full sentences. She is currently on 8 L nasal cannula. Lung sounds are significantly diminished throughout with prolonged expiratory phase and scattered rhonchi which improves somewhat with coughing. Cardiovascular: Regular rate and rhythm with S1-S2. Systolic murmur at the upper sternal border apparent Gastrointestinal: Abdomen is soft, obese, nontender, and nondistended with positive bowel sounds. Large ventral hernia soft and reducible. Skin: Warm and dry. No rash or lesions on limited exam. Extremities: No cyanosis or clubbing. Status post bilateral [id number] amputation. Neurological: Alert and oriented x4. Cranial nerves 2-12 are grossly intact. Speech is clear. No facial asymmetry. No gross focal deficits. Psychiatric: Pleasant and cooperative with appropriate mood and affect. He is a fair historian. Objective Data Vital Signs Vital Signs: Vital Signs - 24 hr 12/07/23
[2023-12-08] MEDS: FUROSEMIDE INJ 40 MG/4 ML VIAL 20 MG IV PUSH (18:03)
[2023-12-08] MEDS: GABAPENTIN 400 MG CAPSULE 1200 MG PO (20:16)
[2023-12-08] MEDS: ARIPiprazole 5 MG TABLET PO (20:17)
[2023-12-08] MEDS: ATORVASTATIN 40 MG TABLET 80 MG PO (20:17)
[2023-12-09] VITALS (24 sets, daily range): BP systolic 126–165; BP diastolic 44–58; PULSE 66–102; RESP 16–20; TEMP 36.4–36.6; O2SAT 90–100
[2023-12-09 05:45] LABS: Basophils Percent Auto 0.1 % (0.2-1.2); Hematocrit 29.1 % (37.0-47.0); Hemoglobin 9.2 g/dL (12.0-15.0); Immature Granulocyte Absolute 0.09 K/mm3 (0.00-0.031); Immature Granulocyte Percent A 0.6 % (0-0.5); Lymphocytes Absolute Auto 0.56 K/mm3 (0.9-3.2); Mean Corpuscular HGB Conc 31.6 g/dl (32-36); Mean Corpuscular Hemoglobin 31.3 pg (26-34); Mean Platelet Volume 9.1 fl (7.4-10.4); Monocytes Absolute Auto 0.5 K/mm3 (0.1-0.6); Monocytes Percent Auto 3.2 % (2.6-8.5); Neutrophils Absolute Auto 12.9 K/mm3 (1.3-6.7); Neutrophils Percent Auto 92.1 % (45.5-73.1); Platelet Count Result 290 k/mm3 (150-375); Red Blood Count 2.94 M/mm3 (4.2-5.4); Red Cell Distribution Width 15.9 % (11.5-14.5)
[2023-12-09 06:00] LABS: Alanine Aminotransferase 16 U/L (6-35); Albumin Level 2.9 g/dL (3.5-5.1); Alkaline Phosphatase 122 U/L (38-126); Anion Gap 6 mmol/L (8-16); Aspartate Amino Transferase 21 U/L (14-36); Bilirubin,Total 0.5 mg/dL (0.2-1.3); Blood Urea Nitrogen 35 mg/dL (7-17); Calcium 8.1 mg/dL (8.4-10.2); Carbon Dioxide 32 mmol/L (22-30); Chloride 96 mmol/L (98-107); Estimated CRCL calculation 46 ml/min; Estimated Glomerular Filt Rate 50; Glucose 209 mg/dL (65-110); Magnesium 1.8 mg/dL (1.6-2.3); Potassium 2.9 mmol/L (3.4-5.0); Sodium 134 mmol/L (137-145)
[2023-12-09] MEDS: methylPREDNISolone SOD SUCC 125 MG VIAL 60 MG IV PUSH ×4 (06:26→23:47)
[2023-12-09] MEDS: LEVOTHYROXINE SODIUM 50 MCG TABLET PO (06:26)
[2023-12-09] MEDS: AZITHROMYCIN 250 MG TABLET PO (08:46)
[2023-12-09] MEDS: ENOXAPARIN 40 MG/0.4 ML SYRINGE SUB-Q (08:46)
[2023-12-09] MEDS: FOLIC ACID 1 MG TABLET PO (08:46)
[2023-12-09] MEDS: FUROSEMIDE 20 MG TABLET PO (08:46)
[2023-12-09] MEDS: guaiFENesin 12 HR 600 MG TABCR PO ×2 (08:47→21:33)
[2023-12-09] MEDS: ASPIRIN 81 MG ENTERIC TABLET PO (08:47)
[2023-12-09] MEDS: dilTIAZem HCL CD 240 MG CAP.24HR 480 MG PO (08:47)
[2023-12-09] MEDS: POTASSIUM CHLORIDE 10 MEQ ER TABLET PO (08:47)
[2023-12-09] MEDS: GABAPENTIN 300 MG CAPSULE 600 MG PO (08:47)
[2023-12-09] MEDS: IPRATROPIUM 0.5 MG/ALBUTEROL SULFATE 2.5 MG AMPUL.NEB 3 ML INHALATION ×3 (09:20→20:16)
[2023-12-09 09:26] LABS: Hemoglobin A1C 6.3 % (<5.7)
[2023-12-09] MEDS: POTASSIUM CHLORIDE 20 MEQ ER TABLET 40 MEQ PO ×2 (09:56→18:15)
[2023-12-09] MEDS: FUROSEMIDE INJ 40 MG/4 ML VIAL IV PUSH (09:57)
[2023-12-09] MEDS: oxyCODONE HCL (*CRX) 5 MG TAB IR 10 MG PO (09:57)
[2023-12-09 12:11] LABS: Glucose Point of Care 282 mg/dl (65-105)
--- NOTE | 2023-12-09 13:46 | PM.IMPN ---
Progress Note: A&P Assessment and Plan (1) Acute hypoxic respiratory failure: Code(s): J96.01 - Acute respiratory failure with hypoxia Status: Acute (2) Pneumonia: Code(s): J18.9 - Pneumonia, unspecified organism Status: Acute (3) COPD exacerbation: Code(s): J44.1 - Chronic obstructive pulmonary disease with (acute) exacerbation Status: Acute (4) Elevated troponin: Code(s): R79.89 - Other specified abnormal findings of blood chemistry Status: Acute (5) Diastolic dysfunction: Code(s): I51.89 - Other ill-defined heart diseases Status: Acute (6) Chronic kidney disease, stage 3: Code(s): N18.30 - Chronic kidney disease, stage 3 unspecified Status: Acute (7) Hypothyroidism: Code(s): E03.9 - Hypothyroidism, unspecified Status: Acute (8) Peripheral vascular disease: Code(s): I73.9 - Peripheral vascular disease, unspecified Status: Acute Plan The patient presented to the emergency department for evaluation of shortness of breath and low oxygen saturations. She required oxygen supplementation via nasal cannula upon arrival to the ED. no prior oxygen use at home prior to the admission. WBC count 23,000. Creatinine of 1.3 which is at baseline. Serial troponin flat. Chest x-ray with bilateral airspace disease most confluent at the left lung base which could represent pulmonary edema/atelectasis is versus possibly pneumonia. Minimal left pleural effusion. Chest CTA was negative for pulmonary embolism but did show findings of possible pneumonia and/or mild pulmonary edema. She has evidence of emphysema on that CT and clinically has a COPD exacerbation as well. She has been started on azithromycin and ceftriaxone for suspected pneumonia. Continue p.o. Lasix as she does not look acutely volume overloaded. She has also been started on scheduled bronchodilators and Solu-Medrol given significant wheezing on exam. Sputum to be attempted for culture. Check Legionella pneumococcal antigens as well as mycoplasma IgM. Troponin is mildly elevated and will be trended. She has no complaints of chest pain and it is likely that the troponins are elevated in the setting of profound hypoxia. Her chronic kidney disease stable on review of previous labs. Blood pressures were reviewed and they have been stable though she has had intermittent softer blood pressures. Her home medications will be reviewed and resumed as appropriate. DVT prophylaxis enoxaparin Oxygenation requirement remains same. Will re-dose Lasix 40 mg IV x1 replace potassium today. Continue steroid and bronchodilators as ordered recheck BNP in a.m. chest x-ray with worsening congestion noted Subjective Date/time seen: 12/09/23 13:46 Interval history: Oxygen requirement by the same. Gets hypoxic when she sleeps suspected sleep apnea. Feels otherwise okay. Review of Systems Review of Systems: All systems reviewed & are unremarkable except as noted in HPI and below Exam Narrative: General: Well-appearing female sitting up in bed in no acute distress. HEENT: A bit hard of hearing. PERRL, EOMI. Sclera anicteric. Oral mucosa moist. Neck: Supple. No JVD. Respiratory: Respirations are nonlabored and she is speaking in full sentences. Diffuse wheezing Cardiovascular: Regular rate and rhythm with S1-S2. Systolic murmur at the upper sternal border apparent Gastrointestinal: Abdomen is soft, obese, nontender, and nondistended with positive bowel sounds. Large ventral hernia soft and reducible. Skin: Warm and dry. No rash or lesions on limited exam. Extremities: No cyanosis or clubbing. Status post bilateral ftnsu-paq-ffwi amputation. Neurological: Alert and oriented x4. Cranial nerves 2-12 are grossly intact. Speech is clear. No facial asymmetry. No gross focal deficits. Psychiatric: Pleasant and cooperative with appropriate mood and affect. He is a fair historian. Objective Data Vital
[2023-12-09 17:28] LABS: Glucose Point of Care 226 mg/dl (65-105)
[2023-12-09] MEDS: INSULIN ASPART (*BKC) 100 UNITS/ML SUB-Q ×2 (18:15)
[2023-12-09 20:40] LABS: Glucose Point of Care 280 mg/dl (65-105)
[2023-12-09] MEDS: ARIPiprazole 5 MG TABLET PO (21:32)
[2023-12-09] MEDS: ATORVASTATIN 40 MG TABLET 80 MG PO (21:32)
[2023-12-09] MEDS: GABAPENTIN 400 MG CAPSULE 1200 MG PO (21:33)
[2023-12-09] MEDS: ACETAMINOPHEN 325 MG TABLET 650 MG PO (21:38)
[2023-12-10] VITALS (20 sets, daily range): BP systolic 106–140; BP diastolic 44–82; PULSE 53–98; RESP 18–22; TEMP 36.1–36.7; O2SAT 87–98
[2023-12-10] MEDS: methylPREDNISolone SOD SUCC 125 MG VIAL 60 MG IV PUSH (05:47)
[2023-12-10] MEDS: LEVOTHYROXINE SODIUM 50 MCG TABLET PO (05:47)
[2023-12-10 08:03] LABS: Basophils Percent Auto 0.1 % (0.2-1.2); Hematocrit 31.2 % (37.0-47.0); Hemoglobin 9.7 g/dL (12.0-15.0); Immature Granulocyte Absolute 0.12 K/mm3 (0.00-0.031); Immature Granulocyte Percent A 0.7 % (0-0.5); Lymphocytes Absolute Auto 0.62 K/mm3 (0.9-3.2); Lymphocytes Percent Auto 3.5 % (18.3-44.2); Mean Corpuscular HGB Conc 31.1 g/dl (32-36); Mean Corpuscular Hemoglobin 30.6 pg (26-34); Mean Corpuscular Volume 98.4 fl (80-100); Mean Platelet Volume 8.6 fl (7.4-10.4); Monocytes Absolute Auto 0.5 K/mm3 (0.1-0.6); Monocytes Percent Auto 2.5 % (2.6-8.5); Neutrophils Absolute Auto 16.6 K/mm3 (1.3-6.7); Neutrophils Percent Auto 93.2 % (45.5-73.1); Platelet Count Result 341 k/mm3 (150-375); Red Blood Count 3.17 M/mm3 (4.2-5.4); White Blood Count 17.8 K/mm3 (4.5-10.0)
[2023-12-10 08:13] LABS: Alanine Aminotransferase 20 U/L (6-35); Albumin Level 3.1 g/dL (3.5-5.1); Alkaline Phosphatase 138 U/L (38-126); Anion Gap 6 mmol/L (8-16); Aspartate Amino Transferase 21 U/L (14-36); Bilirubin,Total 0.4 mg/dL (0.2-1.3); Blood Urea Nitrogen 36 mg/dL (7-17); Calcium 8.4 mg/dL (8.4-10.2); Carbon Dioxide 32 mmol/L (22-30); Chloride 95 mmol/L (98-107); Estimated CRCL calculation 44 ml/min; Estimated Glomerular Filt Rate 46; Glucose 207 mg/dL (65-110); Magnesium 1.9 mg/dL (1.6-2.3); Potassium 3.6 mmol/L (3.4-5.0); Sodium 133 mmol/L (137-145)
[2023-12-10 08:22] LABS: NT Pro B Type Natriuretic Pept 3830 pg/mL (19.9-100)
[2023-12-10 08:33] LABS: Glucose Point of Care 207 mg/dl (65-105)
[2023-12-10] MEDS: INSULIN ASPART (*BKC) 100 UNITS/ML SUB-Q ×3 (08:56→17:47)
[2023-12-10] MEDS: dilTIAZem HCL CD 240 MG CAP.24HR 480 MG PO (09:03)
[2023-12-10] MEDS: AZITHROMYCIN 250 MG TABLET PO (09:04)
[2023-12-10] MEDS: ENOXAPARIN 40 MG/0.4 ML SYRINGE SUB-Q (09:04)
[2023-12-10] MEDS: guaiFENesin 12 HR 600 MG TABCR PO ×2 (09:06→20:26)
[2023-12-10] MEDS: ASPIRIN 81 MG ENTERIC TABLET PO (09:06)
[2023-12-10] MEDS: FOLIC ACID 1 MG TABLET PO (09:07)
[2023-12-10] MEDS: GABAPENTIN 300 MG CAPSULE 600 MG PO (09:07)
[2023-12-10] MEDS: FUROSEMIDE 20 MG TABLET PO (09:07)
[2023-12-10] MEDS: POTASSIUM CHLORIDE 10 MEQ ER TABLET PO (09:08)
[2023-12-10] MEDS: IPRATROPIUM 0.5 MG/ALBUTEROL SULFATE 2.5 MG AMPUL.NEB 3 ML INHALATION ×3 (09:31→19:25)
--- NOTE | 2023-12-10 10:42 | PC.NURSE ---
Per nurse request IV attempted. Location in the AC was unfavorable. Patient very apprehensive but compliant. L forearm attempt vein rolled. R forearm attempt vein blew. Patient nurse made aware. Charge nurse for ICU notified for an additional attempt at the request of patients nurse.
[2023-12-10 12:01] LABS: Glucose Point of Care 299 mg/dl (65-105)
--- NOTE | 2023-12-10 13:30 | PM.IMPN ---
Progress Note: A&P Assessment and Plan (1) Acute hypoxic respiratory failure: Code(s): J96.01 - Acute respiratory failure with hypoxia Status: Acute (2) Pneumonia: Code(s): J18.9 - Pneumonia, unspecified organism Status: Acute (3) COPD exacerbation: Code(s): J44.1 - Chronic obstructive pulmonary disease with (acute) exacerbation Status: Acute (4) Elevated troponin: Code(s): R79.89 - Other specified abnormal findings of blood chemistry Status: Acute (5) Diastolic dysfunction: Code(s): I51.89 - Other ill-defined heart diseases Status: Acute (6) Chronic kidney disease, stage 3: Code(s): N18.30 - Chronic kidney disease, stage 3 unspecified Status: Acute (7) Hypothyroidism: Code(s): E03.9 - Hypothyroidism, unspecified Status: Acute (8) Peripheral vascular disease: Code(s): I73.9 - Peripheral vascular disease, unspecified Status: Acute Plan The patient presented to the emergency department for evaluation of shortness of breath and low oxygen saturations. She required oxygen supplementation via nasal cannula upon arrival to the ED. no prior oxygen use at home prior to the admission. WBC count 23,000. Creatinine of 1.3 which is at baseline. Serial troponin flat. Chest x-ray with bilateral airspace disease most confluent at the left lung base which could represent pulmonary edema/atelectasis is versus possibly pneumonia. Minimal left pleural effusion. Chest CTA was negative for pulmonary embolism but did show findings of possible pneumonia and/or mild pulmonary edema. She has evidence of emphysema on that CT and clinically has a COPD exacerbation as well. She has been started on azithromycin and ceftriaxone for suspected pneumonia. Continue p.o. Lasix as she does not look acutely volume overloaded. She has also been started on scheduled bronchodilators and Solu-Medrol given significant wheezing on exam. Sputum to be attempted for culture. Check Legionella pneumococcal antigens as well as mycoplasma IgM. Will switch to oral prednisone continue taper oxygen. Oral antibiotics troponin is mildly elevated and will be trended. She has no complaints of chest pain and it is likely that the troponins are elevated in the setting of profound hypoxia. Her chronic kidney disease stable on review of previous labs. Blood pressures were reviewed and they have been stable though she has had intermittent softer blood pressures. Her home medications will be reviewed and resumed as appropriate. DVT prophylaxis enoxaparin Oxygenation requirement improving. Continue steroid and bronchodilators as ordered recheck BNP in a.m. chest x-ray with worsening congestion noted Recheck chest x-ray in a.m. home oxygen evaluation Subjective Date/time seen: 12/10/23 13:30 Interval history: Oxygen requirement improving. Oxygen down to 2-3 L today. Breathing better. IV line lost. Review of Systems Review of Systems: All systems reviewed & are unremarkable except as noted in HPI and below Exam Narrative: General: Well-appearing female sitting up in bed in no acute distress. HEENT: A bit hard of hearing. PERRL, EOMI. Sclera anicteric. Oral mucosa moist. Neck: Supple. No JVD. Respiratory: Respirations are nonlabored and she is speaking in full sentences. Diminished breath sound bilaterally Cardiovascular: Regular rate and rhythm with S1-S2. Systolic murmur at the upper sternal border apparent Gastrointestinal: Abdomen is soft, obese, nontender, and nondistended with positive bowel sounds. Large ventral hernia soft and reducible. Skin: Warm and dry. No rash or lesions on limited exam. Extremities: No cyanosis or clubbing. Status post bilateral vqbon-qxn-nlos amputation. Neurological: Alert and oriented x4. Cranial nerves 2-12 are grossly intact. Speech is clear. No facial asymmetry. No gross focal deficits. Psychiatric: Pleasant and cooperative with appropriate mo
--- NOTE | 2023-12-10 15:51 | PC.NURSE ---
pt med/surg status- report given to Megan VALDEZ- pt transferred to room 328 via bed with O2 on 2l/nc , personal belongings with pt
--- NOTE | 2023-12-10 15:58 | PC.NURSE ---
This patient, Pamela Plata, was received from [facility] on 12/10/23 at 1558. Patient/family oriented to unit policies and routines.
[2023-12-10 16:50] LABS: Glucose Point of Care 247 mg/dl (65-105)
[2023-12-10] MEDS: predniSONE 20 MG TABLET 40 MG PO (17:48)
[2023-12-10] MEDS: CEFDINIR 300 MG CAPSULE PO (20:26)
[2023-12-10] MEDS: ATORVASTATIN 40 MG TABLET 80 MG PO (20:26)
[2023-12-10] MEDS: ARIPiprazole 5 MG TABLET PO (20:26)
[2023-12-10] MEDS: GABAPENTIN 400 MG CAPSULE 1200 MG PO (20:34)
[2023-12-10 21:20] LABS: Glucose Point of Care 366 mg/dl (65-105)
[2023-12-10] MEDS: INSULIN ASPART (*BKC) 100 UNITS/ML 6 UNITS SUB-Q (23:29)
[2023-12-11] VITALS (11 sets, daily range): BP systolic 108–130; BP diastolic 49–56; PULSE 68–87; RESP 20; TEMP 36.3–36.6; O2SAT 85–94
[2023-12-11] MEDS: IPRATROPIUM 0.5 MG/ALBUTEROL SULFATE 2.5 MG AMPUL.NEB 3 ML INHALATION ×3 (01:03→15:41)
[2023-12-11 02:11] LABS: Glucose Point of Care 244 mg/dl (65-105)
[2023-12-11] MEDS: predniSONE 20 MG TABLET 40 MG PO (06:17)
[2023-12-11] MEDS: LEVOTHYROXINE SODIUM 50 MCG TABLET PO (06:17)
[2023-12-11 06:39] LABS: Basophils Percent Auto 0.1 % (0.2-1.2); Hematocrit 30.2 % (37.0-47.0); Hemoglobin 9.7 g/dL (12.0-15.0); Immature Granulocyte Percent A 1.1 % (0-0.5); Lymphocytes Absolute Auto 0.68 K/mm3 (0.9-3.2); Lymphocytes Percent Auto 3.7 % (18.3-44.2); Mean Corpuscular HGB Conc 32.1 g/dl (32-36); Mean Corpuscular Hemoglobin 31.5 pg (26-34); Mean Corpuscular Volume 98.1 fl (80-100); Mean Platelet Volume 8.7 fl (7.4-10.4); Monocytes Absolute Auto 1.1 K/mm3 (0.1-0.6); Monocytes Percent Auto 5.8 % (2.6-8.5); Neutrophils Absolute Auto 16.2 K/mm3 (1.3-6.7); Neutrophils Percent Auto 89.3 % (45.5-73.1); Platelet Count Result 322 k/mm3 (150-375); Red Blood Count 3.08 M/mm3 (4.2-5.4); Red Cell Distribution Width 16.1 % (11.5-14.5); White Blood Count 18.2 K/mm3 (4.5-10.0)
[2023-12-11 06:57] LABS: Alanine Aminotransferase 21 U/L (6-35); Alkaline Phosphatase 149 U/L (38-126); Anion Gap 6 mmol/L (8-16); Aspartate Amino Transferase 25 U/L (14-36); Bilirubin,Total 0.7 mg/dL (0.2-1.3); Blood Urea Nitrogen 37 mg/dL (7-17); Carbon Dioxide 34 mmol/L (22-30); Chloride 94 mmol/L (98-107); Estimated CRCL calculation 48 ml/min; Estimated Glomerular Filt Rate 50; Glucose 186 mg/dL (65-110); Magnesium 1.9 mg/dL (1.6-2.3); Potassium 3.5 mmol/L (3.4-5.0); Sodium 134 mmol/L (137-145)
[2023-12-11 07:54] LABS: Glucose Point of Care 238 mg/dl (65-105)
[2023-12-11] MEDS: ASPIRIN 81 MG ENTERIC TABLET PO (08:29)
[2023-12-11] MEDS: AZITHROMYCIN 250 MG TABLET PO (08:29)
[2023-12-11] MEDS: guaiFENesin 12 HR 600 MG TABCR PO (08:30)
[2023-12-11] MEDS: POTASSIUM CHLORIDE 10 MEQ ER TABLET PO (08:30)
[2023-12-11] MEDS: FUROSEMIDE 20 MG TABLET PO (08:30)
[2023-12-11] MEDS: FOLIC ACID 1 MG TABLET PO (08:30)
[2023-12-11] MEDS: CEFDINIR 300 MG CAPSULE PO (08:30)
[2023-12-11] MEDS: GABAPENTIN 300 MG CAPSULE 600 MG PO (08:30)
[2023-12-11] MEDS: dilTIAZem HCL CD 240 MG CAP.24HR 480 MG PO (08:33)
[2023-12-11] MEDS: INSULIN ASPART (*BKC) 100 UNITS/ML SUB-Q ×2 (08:35→11:49)
[2023-12-11] MEDS: oxyCODONE HCL (*CRX) 5 MG TAB IR 10 MG PO (09:58)
[2023-12-11 11:23] LABS: Glucose Point of Care 312 mg/dl (65-105)
--- NOTE | 2023-12-11 11:52 | HOMEO2EVAL ---
Evaluation was performed at [facility] Home Oxygen Evaluation RC: Home Oxygen (O2) Evaluation Start: 12/11/23 07:34 Freq: ONCE Status: Active Protocol: RPE Activity Type Activity Date Activity User E-sign Co-sign Detail Recorded Client Recorded Date Recorded By Document 12/11/23 11:37 KRM [email or web address] 12/11/23 11:52 KRM Document 12/11/23 11:39 KRM [email or web address] 12/11/23 11:52 KRM Document 12/11/23 11:40 KRM [email or web address] 12/11/23 11:52 KRM 12/11/23 12/11/23 12/11/23 11:37 11:39 11:40 Home O2 Evaluation [Oxygen] -Test Phase Resting Resting Resting -Oxygen Delivery Room Air Nasal Cannula Nasal Cannula -Oxygen Flow Rate (L/min) 1 2 [Pulse Oximetry] -Pulse Oximetry (90-100 %) 85 L 88 L 92 [Pulse Rate] -Pulse Rate (60-100 beats/min) 82 87 83 [Comments] -Home Oxygen Evaluation Comments Bilat amputee. Pt. uses wheelchair, unable to ambulate. [Charges] -Evaluation Charges O2 Evaluation by Pulmonary
--- NOTE | 2023-12-11 11:55 | PCRCNOTE ---
home o2 evaluation completed, pt. requires 2lpm. faxed setup to Dav at [place] [facility] [phone].
--- NOTE | 2023-12-11 12:29 | PM.DS ---
DS: Admitting Diagnosis Discharge Date 12/11/2023 Admitting Diagnosis Shortness of breath DS: Discharge Diagnosis Discharge Diagnosis (1) Acute hypoxic respiratory failure: Code(s): J96.01 - Acute respiratory failure with hypoxia Status: Acute (2) Pneumonia: Code(s): J18.9 - Pneumonia, unspecified organism Status: Acute (3) COPD exacerbation: Code(s): J44.1 - Chronic obstructive pulmonary disease with (acute) exacerbation Status: Acute (4) Elevated troponin: Code(s): R79.89 - Other specified abnormal findings of blood chemistry Status: Acute (5) Diastolic dysfunction: Code(s): I51.89 - Other ill-defined heart diseases Status: Acute (6) Chronic kidney disease, stage 3: Code(s): N18.30 - Chronic kidney disease, stage 3 unspecified Status: Acute (7) Hypothyroidism: Code(s): E03.9 - Hypothyroidism, unspecified Status: Acute (8) Peripheral vascular disease: Code(s): I73.9 - Peripheral vascular disease, unspecified Status: Acute DS: Summary Hospital Course Hospital Course: The patient presented to the emergency department for evaluation of shortness of breath and low oxygen saturations.? She required oxygen supplementation via nasal cannula upon arrival to the ED. no prior oxygen use at home prior to the admission.? WBC count 23,000. Creatinine of 1.3 which is at baseline.? Serial troponin flat.? Chest x-ray with bilateral airspace disease most confluent at the left lung base which could represent pulmonary edema/atelectasis is versus possibly pneumonia.? Minimal left pleural effusion.? Chest CTA was negative for pulmonary embolism but did show findings of possible pneumonia and/or mild pulmonary edema. She has evidence of emphysema on that CT and clinically has a COPD exacerbation as well. She has been started on azithromycin and ceftriaxone for suspected pneumonia. She finished the course of azithromycin during the hospital stay. Continue p.o. Lasix as she does not look acutely volume overloaded but did receive intermittent diuretics during the hospital stay. She has also been started on scheduled bronchodilators and Solu-Medrol given significant wheezing on exam. Sputum with normal respiratory jannette. Urine antigens were pending at the time of discharge. Switch to oral prednisone and will continue taper at discharge. Home oxygen evaluation was done at the time of discharge and will arrange for oxygen at home.? Oral antibiotics at discharge. Troponin is mildly elevated and trend was flat. She has no complaints of chest pain and it is likely that the troponins are elevated in the setting of profound hypoxia. Her chronic kidney disease stable on review of previous labs. Blood pressures were reviewed and they have been stable though she has had intermittent softer blood pressures. Her home medications will be reviewed and resumed as appropriate.? DVT prophylaxis enoxaparin. Will also initiate Trelegy at discharge for her underlying COPD she is already has DuoNeb and nebulizer at home. Time Spent with Patient Time attestation: Total time spent providing and/or coordinating discharge services: 35 minutes Exam Narrative: General: Well-appearing female sitting up in bed in no acute distress. HEENT: A bit hard of hearing. PERRL, EOMI. Sclera anicteric. Oral mucosa moist. Neck: Supple. No JVD. Respiratory: Respirations are nonlabored and she is speaking in full sentences. Diminished breath sound bilaterally Cardiovascular: Regular rate and rhythm with S1-S2. Systolic murmur at the upper sternal border apparent Gastrointestinal: Abdomen is soft, obese, nontender, and nondistended with positive bowel sounds. Large ventral hernia soft and reducible. Skin: Warm and dry. No rash or lesions on limited exam. Extremities: No cyanosis or clubbing. Status post bilateral newmo-mua-weia amputation. Neurological: Alert and oriented x4. Cranial n
[2023-12-11 14:25] LABS: Mycoplasma IgM Antibody Titer 115 U/mL (<770)
[2023-12-11 16:39] LABS: Pneumococcal Antigen Urine Not Detected (Not Detected)
[2023-12-13 02:24] LABS: Legionella pneumophila Ag Ur Not Detected (Not Detected)
== END 2023-12-11 17:08 | disposition home or self-care (01) | DRG 193 ==
LOC: ANHED 11:42 → ANHIMU 14:54 → ANH3MEDSUR 12-10 16:03
PROVIDERS: Physician Assistant; Admitting Provider General Practice; Emergency Provider Emergency Medicine; PCP Family Medicine; Visit Provider Internal Medicine
DX: J18.9 Pneumonia, unspecified organism (principal); J96.01 Acute respiratory failure with hypoxia; J44.0 Chronic obstructive pulmonary disease with (acute) lower respiratory infection; J44.1 Chronic obstructive pulmonary disease with (acute) exacerbation; N18.30 Chronic kidney disease, stage 3 unspecified; I12.9 Hypertensive chronic kidney disease with stage 1 through stage 4 chronic kidney disease, or unspecified chronic kidney disease; I73.9 Peripheral vascular disease, unspecified; E03.9 Hypothyroidism, unspecified; Z20.822 Contact with and (suspected) exposure to COVID-19; D64.9 Anemia, unspecified; I51.89 Other ill-defined heart diseases; Z90.710 Acquired absence of both cervix and uterus; Z89.512 Acquired absence of left leg below knee; Z89.511 Acquired absence of right leg below knee; Z87.891 Personal history of nicotine dependence
CPT/HCPCS: 36415; 36600; 71045; 71275; 80048; 80053; 82375; 82803; 82805; 82948; 83036; 83050; 83605; 83735; 83880; 84145; 84439; 84443; 84480; 84484; 85025; 85027; 85380; 85610; 85730; 86140; 86738; 87040; 87070; 87205; 87449; 87637; 87899; 93005; 94618; 94640; 94667; 94668; 94762; 96365; 96367; 96375; 99285; A9270; G0378; J0456; J0696; J1650; J1815; J1940; J2930; J7512; Q9967

== ENCOUNTER 2023-12-26 07:44 | Inpatient (IN) | payer OTHER, SELFPAY ==
[2023-12-26] VITALS (58 sets, daily range): BP systolic 77–151; BP diastolic 47–121; PULSE 54–98; RESP 12–26; TEMP 32.7–38.6; O2SAT 92–100; BMI 30.4
--- NOTE | ~2023-12-26 | US_ITS ---
EXAMINATION: US soft tissue LE RT DATE: 12/26/2023 21:33 INDICATION: swelling and redness right AKA stump . TECHNIQUE: Grayscale and Doppler ultrasound images of the were obtained. COMPARISON: None. FINDINGS: The area of right AKA stump was sonographically interrogated, revealing echogenic subcutane ous fat and subcutaneous edema. No solid or cystic mass detected. IMPRESSION: Sonographic findings may represent cellulitis of the AKA stump, in the proper clinical context. No so nographic evidence of abscess. Reviewed, dictated and finalized at location K. TECHNOLOGIST IMPRESSION: Sonographic findings may represent cellulitis of the AKA stump, in the proper c linical context. No sonographic evidence of abscess.
--- NOTE | ~2023-12-26 | CT_ITS ---
EXAMINATION:CT diagnostic chest wo con DATE: 12/26/2023 09:57 INDICATION: Pneumonia. TECHNIQUE: Computed tomography (CT) of the chest was performed without intravenous contrast. Automate d exposure control and iterative reconstruction technique were employed. The dose-length product (DLP ) was 399.65 mGy-cm. COMPARISON: Chest CT 12/07/2023, 06/11/2020 FINDINGS: There is mild emphysema. There is diffuse smooth septal thickening in the lungs. There are patchy airspace opacities bilaterally with a dependent predominance, likely atelectasis. There are sm all pleural effusions. Cardiomegaly is noted. There are coronary artery calcifications. There is a tr paolo pericardial effusion. The central pulmonary arteries are enlarged, consistent with pulmonary jasmyne rial hypertension. There is a right internal jugular central venous catheter with tip in superior lico a cava. The endotracheal tube tip is in expected position. There is calcified atherosclerosis of the aorta and many of the other arteries. There is severe stenosis versus total occlusion of the brachioc ephalic trunk and moderate stenosis of left common carotid artery. There is a vascular graft fragment in the left subpectoral region. There is mild mediastinal lymphadenopathy, likely reactive. The naso gastric tube tip is in the stomach. There is mild thoracic spondylosis. There is a chronic compressio n fracture of T11. IMPRESSION: 1. Mild pulmonary edema. 2. Small pleural effusions. 3. Mild emphysema. 4. Mild mediastinal lymphadenopathy, likely reactive. 5. Arterial occlusive disease. Reviewed, dictated and finalized at location A. ER TECHNICIAN
--- NOTE | ~2023-12-26 | XR_ITS ---
EXAMINATION: XR chest port-a-cath/central INDICATION: Respiratory arrest TECHNIQUE: Portable AP chest at 0825 hours COMPARISON: 12/11/2023 FINDINGS: A right internal jugular central venous catheter is been inserted which ends with its tip i n the distal superior vena cava. The endotracheal tube ends approximately 2.1 cm above the елена. Th e nasogastric tube is followed as far as the stomach. Its tip is beyond the inferior margin of the ra diograph. Cardiomegaly is noted. There are airspace opacities of the lung bases. A small left pleural effusion is decreased in size. There is no pneumothorax. IMPRESSION: 1. Right internal jugular catheter ending with its tip in the distal superior vena cava. 2. Bibasilar airspace opacities, consistent with atelectasis versus pneumonia. 3. Small left pleural effusion with decrease in size. Reviewed, dictated and finalized at location L. H PLANER TENDER IMPRESSION: 1. Right internal jugular catheter ending with its tip in the distal superior v jim cava. 2. Bibasilar airspace opacities, consistent with atelectasis versus pneumonia. 3. Small left pleural effusion with decrease in size.
--- NOTE | ~2023-12-26 | XR_ITS ---
Portable chest x-ray Comparison: 12/28/2023 Clinical History: Respiratory failure Findings: Right IJ line remains in place. Small left pleural effusion present. There is bibasilar at electasis or scarring. Cardiomediastinal silhouette is stable. Bones and soft tissues are unremarkab le. Impression: Small left pleural effusion with mild bibasilar atelectasis or scarring. Right IJ line in place. Reviewed, dictated and finalized at location . RECEIVER Impression: Small left pleural effusion with mild bibasilar atelectasis or scarring. Right IJ line in place.
--- NOTE | ~2023-12-26 | XR_ITS ---
Portable chest x-ray Comparison: 12/27/2023 Clinical History: Respiratory failure Findings: Endotracheal tube, NG tube, and right IJ line are in place. There is hazy right basilar ai rspace disease. Cardiomediastinal silhouette is stable. Bones and soft tissues are unremarkable. Impression: Right basilar atelectasis versus pneumonia. Support tubes, as above. Reviewed, dictated and finalized at location . OR MEDICAL TECHNOLOGIST Impression: Right basilar atelectasis versus pneumonia. Support tubes, as above.
--- NOTE | ~2023-12-26 | XR_ITS ---
EXAMINATION: XR chest 1V portable DATE: 12/30/2023 05:37 INDICATION: Respiratory failure. TECHNIQUE: A single frontal view of the chest was obtained. COMPARISON: Chest single view 12/29/2023, chest CT 12/26/2023 FINDINGS: There are airspace opacities in the lower lung zones. There is a small left pleural effusio n. No pneumothorax. Cardiomegaly is noted. Calcified mediastinal lymph nodes are consistent with old granulomatous disease. A right internal jugular central venous catheter is seen with tip in the super ior vena cava. IMPRESSION: 1. Stable airspace opacities in the lower lung zones, likely atelectasis. 2. Small left pleural effusion. 3. Cardiomegaly. Reviewed, dictated and finalized at location A. RUMENT ASSEMBLY SUPERVISOR
--- NOTE | ~2023-12-26 | XR_ITS ---
Portable chest x-ray Comparison: 12/26/2023 Clinical History: Respiratory failure Findings: Endotracheal tube, NG tube, and right IJ line are in place. There is linear right basilar scarring or atelectasis. There is additional bibasilar airspace disease. Cardiomediastinal silhouett e is stable. Bones and soft tissues are unremarkable. Impression: Support tubes, as above. Bibasilar pulmonary edema/atelectasis versus pneumonia. Additional linear right basilar scarring or atelectasis. Reviewed, dictated and finalized at location . D SAW RUNNER Impression: Support tubes, as above. Bibasilar pulmonary edema/atelectasis versus pneumonia. Additional linear right basilar scarring or atelectasis.
--- NOTE | ~2023-12-26 | CT_ITS ---
EXAMINATION: CT brain wo con INDICATION: Respiratory arrest COMPARISON: 05/18/2023 TECHNIQUE: Standard unenhanced head CT. The dose-length product (DLP) was 605.33 mGy-cm. The mA was a djusted according to patient size. Iterative reconstruction technique was employed. FINDINGS: No acute intraparenchymal hemorrhage. No evidence of mass lesion. No evidence of acute infa rction. There is an old right occipital infarct. Also noted are old infarcts of the basal ganglia. Th ere is mild periventricular and subcortical hypodensity probably related to small vessel ischemic dis ease. There is mild prominence of the sulci and ventricles related to cerebral atrophy. Intracranial calcified cerebral atherosclerosis is noted. No extra-axial collections. No mass effect or midline sh ift. Changes in the globes are likely from ocular lens surgery. There is mild mucosal thickening of t he paranasal sinuses. IMPRESSION: 1. Areas of prior infarction without acute intracranial abnormality. 2. Age related findings. Reviewed, dictated and finalized at location L. ORATE FITNESS PROGRAM COORDINATOR
--- NOTE | 2023-12-26 07:51 | PC.NURSE ---
EDP Dr Lee at bedside to perform central line.
--- NOTE | 2023-12-26 08:04 | PC.NURSE ---
Pt responsive to painful stimuli during central line insertion.
--- NOTE | 2023-12-26 08:19 | ED.SOB ---
HPI - SOB/Dyspnea General Chief Complaint: Shortness of Breath/Dyspnea Stated Complaint: unresponsive, apneic Time Seen by Provider: 12/26/23 08:11 History of Present Illness HPI Narrative: 63-year-old female with history of chronic obstructive pulmonary disease, moderate pulmonary hypertension, grade 1 diastolic dysfunction, hypertension, chronic kidney disease, stroke, peripheral vascular disease status post bilateral [id number] amputations, MRSA infection, hypothyroidism presenting to the emergency department for evaluation after being found unresponsive. Patient has been struggling with pneumonia for the past few months per family/EMS. Our EMR shows that she was admitted for respiratory distress and pneumonia in beginning of November. Family states they are trying to get the patient to be evaluated yesterday but patient continued to decline evaluation. This morning when they went to check on the patient they found her with shallow breathing and she was unresponsive. EMS was called. Upon arrival to the scene patient was intubated with a 7.0 ET tube, 21 at the teeth. Upon arrival to the emergency department patient was unresponsive but had a heart rate in the 70s oxygen saturation at 100% and blood pressure of 120 systolic. Patient did have an IO in the right shoulder Related Data Home Medications Medication Instructions Recorded Confirmed atorvastatin 80 mg tablet 80 mg PO HS 08/19/22 12/26/23 diltiazem HCl 240 mg 480 mg PO DAILY 08/19/22 12/26/23 capsule,extended release 24 hr folic acid 1 mg tablet 1 mg PO DAILY 08/19/22 12/26/23 gabapentin 300 mg capsule 600 mg PO DAILY 08/19/22 12/26/23 ipratropium 0.5 mg-albuterol 3 mg 3 ml inhalation BID PRN shortness 08/19/22 12/26/23 (2.5 mg base)/3 mL nebulization of breath soln levothyroxine 50 mcg tablet 50 mcg PO DAILY 08/19/22 12/26/23 Aspirin Child 81 mg PO DAILY 05/18/23 12/26/23 aripiprazole 5 mg tablet 5 mg PO HS 05/18/23 12/26/23 gabapentin 300 mg capsule 600 mg PO HS 05/18/23 12/26/23 oxycodone 10 mg tablet 5 mg PO Q8-10H PRN Pain 05/18/23 12/26/23 furosemide 20 mg tablet 40 mg PO DAILY 12/26/23 12/26/23 potassium chloride 10 mEq 10 meq PO BID 12/26/23 12/26/23 capsule,extended release Allergies Allergy/AdvReac Type Severity Reaction Status Date / Time No Known Allergies Allergy Verified 12/07/23 07:11 Review of Systems Review of Systems: ROS unobtainable: Yes unobtainable due to medical condition PMFSH Past Medical History Medical History Anemia C. difficile diarrhea Cardiomyopathy Chronic kidney disease, stage 3 Chronic obstructive pulmonary disease Depression Diastolic dysfunction Hypothyroidism MRSA infection Peripheral vascular disease Pulmonary hypertension Stroke Surgical History Surgical History History of colonoscopy with polypectomy History of hysterectomy History of left above knee amputation History of right above knee amputation History of tubal ligation Status post femoral-popliteal bypass surgery Family History Family History Father Chronic obstructive pulmonary disease Social History Social History Social History: Surrogate medical decision maker: Vicente Plata, spouse. Code status: Full code. Smoking packs per day: 2 Smoking cigarettes per day: 40.0 Years smoked: 43 Smoking pack-years: 86.00 Smoking status: Former smoker Tobacco type: cigarettes Second hand tobacco smoke exposure: No Smoking end date: 03/30/21 Alcohol intake: former Substance use: current Substance use type: marijuana Other substance usage details: marijuana edibles about twice a week to help manage phantom pain. Do You Feel Safe in your Home?: Yes Lack of Transportation: No Lack of Food: Juanita
[2023-12-26] MEDS: PROPOFOL IV EMULSION 100 ML 2.42 MG IV CONT ×2 (08:51→11:01)
[2023-12-26 08:53] LABS: Basophils Absolute Auto 0.1 K/mm3 (0.0-0.1); Basophils Percent Auto 0.4 % (0.2-1.2); Eosinophils Percent Auto 0.2 % (0-4.4); Hematocrit 31.5 % (37.0-47.0); Hemoglobin 9.5 g/dL (12.0-15.0); Immature Granulocyte Absolute 0.14 K/mm3 (0.00-0.031); Immature Granulocyte Percent A 0.8 % (0-0.5); Lymphocytes Absolute Auto 0.59 K/mm3 (0.9-3.2); Lymphocytes Percent Auto 3.3 % (18.3-44.2); Mean Corpuscular HGB Conc 30.2 g/dl (32-36); Mean Corpuscular Hemoglobin 31.8 pg (26-34); Mean Corpuscular Volume 105.4 fl (80-100); Mean Platelet Volume 8.7 fl (7.4-10.4); Monocytes Absolute Auto 0.7 K/mm3 (0.1-0.6); Neutrophils Absolute Auto 16.2 K/mm3 (1.3-6.7); Neutrophils Percent Auto 91.3 % (45.5-73.1); Platelet Count Result 246 k/mm3 (150-375); Red Blood Count 2.99 M/mm3 (4.2-5.4); Red Cell Distribution Width 17.2 % (11.5-14.5); White Blood Count 17.8 K/mm3 (4.5-10.0)
[2023-12-26] MEDS: SODIUM CHLORIDE 0.9% IV 1,000 ML 999 ML IV CONT (08:53)
[2023-12-26 09:02] LABS: Appearance Urine Cloudy (Clear); Bacteria Urine None Seen /hpf; Bilirubin Urine Negative (Negative); Blood Urine Negative (Negative); Color Urine Yellow (Yellow); Glucose Urine UA 1+ mg/dL (Negative); Hyaline Casts Urine Present /lpf; Ketones Urine Negative (Negative); Leukocyte Esterase Ur Negative LEU/UL (Negative); Need Manual Microscopic Reviewed; Nitrate Urine Negative (Negative); Non Pathogenic Casts >20; Protein Urine 2+ mg/dL (Negative); RBC Urine 0-2 /hpf (0-2); Specific Grav Ur 1.017 (1.001-1.035); Squamous Epithelial Cell Urine Occasional /hpf (Few); WBC Urine 0-5 /hpf
[2023-12-26 09:02] LABS: Lactic Acid Reflex 1.3 mmol/L (0.7-2.0)
[2023-12-26 09:03] LABS: Triglycerides 81 mg/dL (<150)
[2023-12-26] MEDS: CEFEPIME 2 GM/NS 50 ML 2 GM/50 ML BAG IVPB ×2 (09:03→20:15)
[2023-12-26 09:05] LABS: Alanine Aminotransferase 20 U/L (6-35); Albumin Level 3.4 g/dL (3.5-5.1); Alkaline Phosphatase 95 U/L (38-126); Anion Gap 4 mmol/L (8-16); Aspartate Amino Transferase 19 U/L (14-36); Bilirubin,Total 0.8 mg/dL (0.2-1.3); Blood Urea Nitrogen 28 mg/dL (7-17); CRP 5.9 mg/dL (<1.0); Calcium 8.4 mg/dL (8.4-10.2); Carbon Dioxide 32 mmol/L (22-30); Chloride 100 mmol/L (98-107); Estimated CRCL calculation 41 ml/min; Estimated Glomerular Filt Rate 42; Glucose 187 mg/dL (65-110); Lipase 34 U/L (23-300); Potassium 4.1 mmol/L (3.4-5.0); Sodium 136 mmol/L (137-145)
[2023-12-26 09:06] LABS: INR 0.9; Prothrombin Time 12.7 Seconds (11.1-14.7)
[2023-12-26 09:07] LABS: Partial Thromboplastin Time 25.4 SECONDS (22.3-36.8)
[2023-12-26 09:10] LABS: Hypochromasia 1+ (NORMAL); Macrocytosis 1+ (NORMAL); Ovalocytes 1+ (NORMAL); Platelet Estimate Adequate (Adequate); Schistocytes None Seen (NORMAL)
[2023-12-26 09:13] LABS: Add Urine Microscopic? YES
[2023-12-26 09:16] LABS: Troponin I 0.056 ng/mL (0.000-0.034)
[2023-12-26 09:19] LABS: PCO2 ABG 53.7 mmHg (35.0-45.0); PO2 ABG 95.3 mmHg (80.0-100.0); pH ABG 7.331 (7.350-7.450)
[2023-12-26 09:20] LABS: Base Excess ABG 1.2 mEq/l (+/-2.0); HCO3 ABG 27.7 mEq/l (22.0-26.0); Oxygen Saturation ABG 96.7 % (95.0-100.0); Total Hemoglobin 3.8 g/dL (12.0-18.0)
[2023-12-26 09:21] LABS: Alveolar/Arterial O2 Gradient 346.1 mmHg; Carboxyhemoglobin 0.9 % THb (0-2.0); Oxygen Content ABG 13.4 %vol (16.0-22.0)
--- NOTE | 2023-12-26 09:21 | ECG_ITS ---
Measurements Intervals [place] Rate: 71 P: -5 NH: 133 QRS: 48 QRSD: 83 T: 63 QT: 368 QTc: 402 Interpretive Statements SINUS RHYTHM COMPARED TO ECG 12/07/2023 10:25:23 NO SIGNIFICANT CHANGES Electronically Signed On 12-26-2023 12:40:18 MEDICAL LAB TECH INSTRUCTOR by Tasia Chavez M.D.
[2023-12-26 09:22] LABS: Methemoglobin ABG 0.3 %THb (0-1.5); Reduced Hemoglobin 3.8 %THb (0-5.0)
[2023-12-26 09:23] LABS: Device VENTILATOR; Fractional Inspired Oxygen 70 %; PO2 FiO2 Ratio Arterial Blood 1.36 %; Site Drawn RIGHT BRACHIAL
[2023-12-26 09:24] LABS: Arterial Blood Gas PEEP 5 cmH2O; Arterial Blood Gas Pressure Support 0 cmH2O; Arterial Blood Gas Tidal Volume 450 ml; Arterial Blood Gas Vent Mode CMV; Arterial Blood Gas Ventilator rate 18 /MIN
[2023-12-26 09:29] LABS: Influenza A QL RT-PCR Negative (Negative); Influenza B QL RT-PCR Negative (Negative); RSV RNA, RT-PCR Negative (Negative); SARS-CoV-2 RNA PCR Negative (Negative)
[2023-12-26] MEDS: ACETAMINOPHEN 650 MG SUPPOSITORY RECTAL (09:29)
--- NOTE | 2023-12-26 10:00 | PC.NURSE ---
Central line inserted emergently. Pt unresponsive.
[2023-12-26] MEDS: VANCOMYCIN 2,000 MG/NS 500 ML 2,000 MG/500 ML BAG 250 MG IVPB (10:08)
[2023-12-26 10:20] LABS: NT Pro B Type Natriuretic Pept 2800 pg/mL (19.9-100)
--- NOTE | 2023-12-26 10:20 | WPDCNINT ---
Assessment and Plan Assessment and plan (1) Acute and chronic respiratory failure: Code(s): J96.20 - Acute and chronic respiratory failure, unspecified whether with hypoxia or hypercapnia Status: Acute Assessment and Plan: Acute on chronic Respiratory failure secondary to COPD exacerbation, pulmonary edema, questionable pneumonia Patient now intubated and sedated Vent settings reviewed. Increase rate to 20. Continue full mechanical ventilation support to prevent hypoxemia/hypercarbia and end organ damage. ABG and CT chest reviewed Treatment of pneumonia as below Bronchodilators, steroids Hold further IV fluids Low tidal volume ventilation strategy to prevent volutrauma (2) Sepsis: Code(s): A41.9 - Sepsis, unspecified organism Status: Acute Assessment and Plan: Patient met criteria for sepsis. CT scan is not impressive for pneumonia although it does show pulmonary edema UA negative Blood cultures have been sent. Will add sputum culture Procalcitonin level is is low Hold further IV fluids due to pulmonary edema (3) CHF (congestive heart failure): Qualifiers: Heart failure chronicity: acute Heart failure type: unspecified Qualified Code(s): I50.9 - Heart failure, unspecified Code(s): I50.9 - Heart failure, unspecified Status: Acute Assessment and Plan: Echo 06/21 Summary ? 1. Definity contrast administered improved wall motion interpretation. ? 2. Left ventricular chamber dimension is normal. ? 3. Left ventricular systolic function is normal, estimated at 65-70%. ? 4. There is mild concentric increased left ventricular wall thickness. ? 5. The left ventricular diastolic function is grade I diastolic dysfunction. ? 6. E/e' 9 is minimally elevated. ? 7. Mild right ventricular hypertrophy. ? 8. Left atrial chamber dimension is moderately enlarged. ? 9. There is mild aortic valve sclerosis. ? 10. There is mild mitral valve regurgitation. ? 11. There is trace tricuspid valve regurgitation. ? 12. Moderate pulmonary hypertension, estimated pulmonary arterial systolic pressure is [address] scan suggest pulmonary edema. BNP elevated Hold further IV fluids (4) Pulmonary edema: Code(s): J81.1 - Chronic pulmonary edema Status: Acute Assessment and Plan: See above (5) Pneumonia: Code(s): J18.9 - Pneumonia, unspecified organism Status: Acute Assessment and Plan: See above (6) Altered mental status: Code(s): R41.82 - Altered mental status, unspecified Status: Acute Assessment and Plan: Head CT IMPRESSION: 1. Areas of prior infarction without acute intracranial abnormality. 2. Age related findings. Now intubated and sedated Check ammonia level (7) Elevated troponin: Code(s): R79.89 - Other specified abnormal findings of blood chemistry Status: Acute Assessment and Plan: Elevated creatinine in presence of sepsis respiratory failure and chronic kidney disease Continue serial troponin Continue aspirin and statin Resume calcium cleo if blood pressure allows (8) Chronic kidney disease, stage 3: Code(s): N18.30 - Chronic kidney disease, stage 3 unspecified Status: Acute Assessment and Plan: Patient's creatinine appears to be close to baseline\ Monitor urine output electrolytes and creatinine (9) Hypothyroidism: Code(s): E03.9 - Hypothyroidism, unspecified Status: Acute Assessment and Plan: Continue levothyroxine Plan DVT prophylaxis -Lovenox Stress ulcer prophylaxis -Protonix Nutrition -npo Code Status - Full Code Total Critical Care Time - 35 minutes Due to a high probability of clinically significant, life threatening deterioration, the patient required my highest level of preparedness to intervene emergently and I personally spent this critical care time directly and personally managing the patient. This critical care time
[2023-12-26] MEDS: SODIUM CHLORIDE 0.9% IV 1,000 ML 125 ML IV CONT (10:26)
[2023-12-26 10:44] LABS: Procalcitonin 0.5 ng/mL
[2023-12-26] MEDS: FENTANYL 2,500MCG/NS250ML(*CRX 2,500 MCG/250 ML BAG IV CONT (11:21)
[2023-12-26 11:26] LABS: MRSA (PCR) NOT DETECTED (NOT DETECTE)
[2023-12-26] MEDS: methylPREDNISolone SOD SUCC 125 MG VIAL 60 MG IV PUSH (11:36)
[2023-12-26 12:02] LABS: Glucose Point of Care 96 mg/dl (65-105)
[2023-12-26 12:05] LABS: Ammonia < 9 umol/L (9-30)
[2023-12-26 12:06] LABS: Triglycerides 74 mg/dL (<150)
[2023-12-26 12:30] LABS: Troponin I 0.079 ng/mL (0.000-0.034)
--- NOTE | 2023-12-26 13:54 | PM.IMHP ---
H&P: HPI History of Present Illness Date/Time: 12/26/23 13:00 Chief Complaint: Unresponsive. Narrative: This is a 63-year-old female with history of chronic obstructive pulmonary disease, moderate pulmonary hypertension, grade 1 diastolic dysfunction, hypertension, chronic kidney disease, stroke, peripheral vascular disease status post bilateral thynq-qey-zbpz amputations, MRSA infection, hypothyroidism, and other comorbidities who presented to the emergency department for evaluation after being found unresponsive. She is sedated and intubated on mechanical ventilation and cannot provide history thus all of the following is obtained via a review of her EMR as well as information provided by family. She is known to myself and the hospitalist service from a recent admission nearly 2.5 weeks ago at which time she was admitted with hypoxia due to pneumonia and COPD exacerbation after presenting with complaints of shortness of breath. She was discharged on 12/11/2023 with prescriptions for a steroid taper and antibiotics. According to family, she has been struggling with her breathing loss couple of days but she continued to decline evaluation. This morning she was found by family members unresponsive with shallow respirations and EMS was called. She was intubated in the field. On arrival to the ED, she was febrile with a temperature up to 101.4? F. Her labs were significant for a WBC count of 17.8, hemoglobin 9.5, sodium 136, carbon dioxide 32, BUN 28, creatinine 1.30, lactic acid 1.3, troponin 0.056, proBNP 2800, CRP 5.9, total stone 0.5. She tested negative for influenza, RSV, and COVID. Head CT showed areas of prior infarction without acute intracranial abnormality. Chest CT showed mild pulmonary edema, small effusions, mild emphysema, and arterial occlusive disease including severe stenosis versus total occlusion of the brachiocephalic trunk is moderate stenosis of left common carotid artery with a vascular graft fragment in the left subpectoral region. She was started on broad-spectrum antibiotics and is being admitted to the ICU with acute respiratory failure for further treatment and evaluation. Central line has been inserted though she has not yet required vasopressors. Review of Systems Review of Systems: Unable to obtain given clinical condition. [facility] Past Medical History Medical History Anemia C. difficile diarrhea Cardiomyopathy Chronic kidney disease, stage 3 Chronic obstructive pulmonary disease Depression Diastolic dysfunction Hypothyroidism MRSA infection Peripheral vascular disease Pulmonary hypertension Stroke Surgical History Surgical History History of colonoscopy with polypectomy History of hysterectomy History of left above knee amputation History of right above knee amputation History of tubal ligation Status post femoral-popliteal bypass surgery Family History Family History Father Chronic obstructive pulmonary disease Social History Social History Social History: Surrogate medical decision maker: Vicente Plata, spouse. Code status: Full code. Smoking packs per day: 2 Smoking cigarettes per day: 40.0 Years smoked: 43 Smoking pack-years: 86.00 Smoking status: Former smoker Tobacco type: cigarettes Second hand tobacco smoke exposure: No Smoking end date: 03/30/21 Alcohol intake: former Substance use: current Substance use type: marijuana Other substance usage details: marijuana edibles about twice a week to help manage phantom pain. Do You Feel Safe in your Home?: Yes Lack of Transportation: No Lack of Food: Never True Current Housing: I Have Housing Concerned About Future Housing: No Difficulty Paying Gas/Electric Bills: No Difficulty Paying
[2023-12-26] MEDS: CENTRAL LINE FLUSH 10 ML IV PUSH ×2 (14:22→20:16)
[2023-12-26 15:36] LABS: Troponin I 0.074 ng/mL (0.000-0.034)
--- NOTE | 2023-12-26 16:01 | ADMGEN ---
This patient, Pamela Plata, was admitted to Intensive Care Unit-8. Patient/family oriented to hospital policies and general routines including ID bracelet, bed and alarms, visiting hours, pain management, procedures, bathroom and other care routines, personal items, smoking policy, room service/diet, and visiting hours. Information on how to activate the Rapid Response Team has been discussed. Patient/Family are encouraged to report perceived risks to care and to ask questions if they do not understand what they are told or what they should do.
[2023-12-26 18:35] LABS: Glucose Point of Care 160 mg/dl (65-105)
[2023-12-26] MEDS: FENTANYL 2,500MCG/NS250ML(*CRX 2,500 MCG/250 ML BAG 7.5 MCG IV CONT (20:12)
[2023-12-26] MEDS: PROPOFOL IV EMULSION 100 ML 9.66 MG IV CONT (20:14)
[2023-12-26] MEDS: MINERAL OIL/WHITE PETROLATUM OINTMENT 1 APPLIC EACH EYE (20:16)
[2023-12-26] MEDS: TOLNAFTATE 1% POWDER 45 GM BTL 1 APPLIC TOPICAL (20:16)
[2023-12-27] VITALS (55 sets, daily range): BP systolic 66–178; BP diastolic 25–112; PULSE 40–92; RESP 16–24; TEMP 36.3–38.6; O2SAT 92–99; BMI 30.4
[2023-12-27] MEDS: metroNIDAZOLE 500 MG/ISO 100ML 500 MG/100 ML BAG 100 MG IVPB ×4 (00:28→22:16)
[2023-12-27 00:39] LABS: Troponin I 0.032 ng/mL (0.000-0.034)
[2023-12-27 04:19] LABS: Glucose Point of Care 163 mg/dl (65-105)
[2023-12-27] MEDS: LEVOTHYROXINE SODIUM 50 MCG TABLET FEED TUBE (05:15)
[2023-12-27] MEDS: CENTRAL LINE FLUSH 10 ML IV PUSH ×3 (05:15→20:20)
[2023-12-27 05:33] LABS: Basophils Percent Auto 0.1 % (0.2-1.2); Hematocrit 29.3 % (37.0-47.0); Hemoglobin 8.9 g/dL (12.0-15.0); Immature Granulocyte Absolute 0.06 K/mm3 (0.00-0.031); Immature Granulocyte Percent A 0.7 % (0-0.5); Lymphocytes Absolute Auto 0.44 K/mm3 (0.9-3.2); Lymphocytes Percent Auto 4.8 % (18.3-44.2); Mean Corpuscular HGB Conc 30.4 g/dl (32-36); Mean Corpuscular Hemoglobin 30.9 pg (26-34); Mean Corpuscular Volume 101.7 fl (80-100); Mean Platelet Volume 8.8 fl (7.4-10.4); Monocytes Absolute Auto 0.4 K/mm3 (0.1-0.6); Monocytes Percent Auto 4.5 % (2.6-8.5); Neutrophils Absolute Auto 8.2 K/mm3 (1.3-6.7); Neutrophils Percent Auto 89.9 % (45.5-73.1); Platelet Count Result 207 k/mm3 (150-375); Red Blood Count 2.88 M/mm3 (4.2-5.4); Red Cell Distribution Width 16.9 % (11.5-14.5); White Blood Count 9.1 K/mm3 (4.5-10.0)
[2023-12-27 05:42] LABS: Alanine Aminotransferase 20 U/L (6-35); Albumin Level 3.1 g/dL (3.5-5.1); Alkaline Phosphatase 64 U/L (38-126); Anion Gap 5 mmol/L (8-16); Aspartate Amino Transferase 18 U/L (14-36); Bilirubin,Total 0.6 mg/dL (0.2-1.3); Blood Urea Nitrogen 26 mg/dL (7-17); Calcium 8.7 mg/dL (8.4-10.2); Carbon Dioxide 27 mmol/L (22-30); Chloride 105 mmol/L (98-107); Estimated CRCL calculation 48 ml/min; Estimated Glomerular Filt Rate 50; Glucose 162 mg/dL (65-110); Magnesium 1.8 mg/dL (1.6-2.3); Potassium 3.5 mmol/L (3.4-5.0); Sodium 137 mmol/L (137-145)
[2023-12-27 05:53] LABS: Alveolar/Arterial O2 Gradient 216.9 mmHg; Base Excess ABG 3.5 mEq/l (+/-2.0); Carboxyhemoglobin 0.3 % THb (0-2.0); Fractional Inspired Oxygen 40 %; HCO3 ABG 27.8 mEq/l (22.0-26.0); Methemoglobin ABG 0.2 %THb (0-1.5); PO2 FiO2 Ratio Arterial Blood 0.78 %; Total Hemoglobin 10.2 g/dL (12.0-18.0); pH ABG 7.449 (7.350-7.450)
[2023-12-27 05:57] LABS: PO2 ABG 31.2 mmHg (80.0-100.0)
[2023-12-27 05:58] LABS: Oxygen Saturation ABG 62.6 % (95.0-100.0)
[2023-12-27 05:59] LABS: Device VENTILATOR; Modified Allen's Test Pass; Oxyhemoglobin 55.5 % THb (90.0-100.0); Site Drawn RIGHT BRACHIAL
[2023-12-27 06:00] LABS: Arterial Blood Gas PEEP 5 cmH2O; Arterial Blood Gas Tidal Volume 450 ml; Arterial Blood Gas Vent Mode CMV; Arterial Blood Gas Ventilator rate 20 /MIN
[2023-12-27] MEDS: PROPOFOL IV EMULSION 100 ML 9.66 MG IV CONT (06:40)
[2023-12-27 07:48] LABS: Anisocytosis 1+ (NORMAL); Hypochromasia 1+ (NORMAL); Platelet Estimate Adequate (Adequate); Poikilocytosis 1+ (NORMAL); Schistocytes None Seen (NORMAL)
--- NOTE | 2023-12-27 08:15 | WPDINTPN ---
Progress Note: A&P Assessment and Plan (1) Acute and chronic respiratory failure: Code(s): J96.20 - Acute and chronic respiratory failure, unspecified whether with hypoxia or hypercapnia Status: Acute Assessment and Plan: Acute on chronic Respiratory failure secondary to COPD exacerbation, pulmonary edema, questionable pneumonia Patient now intubated and sedated Vent settings, chest x-ray ABG which is a mixed sample reviewed. Increase rate to 20. Continue full mechanical ventilation support to prevent hypoxemia/hypercarbia and end organ damage. Start diuresis Treatment of pneumonia as below Continue bronchodilators, steroids Low tidal volume ventilation strategy to prevent volutrauma (2) Sepsis: Code(s): A41.9 - Sepsis, unspecified organism Status: Acute Assessment and Plan: Patient met criteria for sepsis. CT scan is not impressive for pneumonia although it does show pulmonary edema UA negative Blood cultures have been sent. Pending sputum culture Procalcitonin level is is low Hold further IV fluids due to pulmonary edema Nasal MRSA screen is negative Continue cefepime but will discontinue vancomycin after this morning's dose (3) CHF (congestive heart failure): Qualifiers: Heart failure chronicity: acute Heart failure type: unspecified Qualified Code(s): I50.9 - Heart failure, unspecified Code(s): I50.9 - Heart failure, unspecified Status: Acute Assessment and Plan: Echo 06/21 Summary ? 1. Definity contrast administered improved wall motion interpretation. ? 2. Left ventricular chamber dimension is normal. ? 3. Left ventricular systolic function is normal, estimated at 65-70%. ? 4. There is mild concentric increased left ventricular wall thickness. ? 5. The left ventricular diastolic function is grade I diastolic dysfunction. ? 6. E/e' 9 is minimally elevated. ? 7. Mild right ventricular hypertrophy. ? 8. Left atrial chamber dimension is moderately enlarged. ? 9. There is mild aortic valve sclerosis. ? 10. There is mild mitral valve regurgitation. ? 11. There is trace tricuspid valve regurgitation. ? 12. Moderate pulmonary hypertension, estimated pulmonary arterial systolic pressure is [address] scan suggest pulmonary edema. BNP elevated Hold further IV fluids (4) Pulmonary edema: Code(s): J81.1 - Chronic pulmonary edema Status: Acute Assessment and Plan: See above (5) Pneumonia: Code(s): J18.9 - Pneumonia, unspecified organism Status: Acute Assessment and Plan: See above (6) Altered mental status: Code(s): R41.82 - Altered mental status, unspecified Status: Acute Assessment and Plan: Head CT IMPRESSION: 1. Areas of prior infarction without acute intracranial abnormality. 2. Age related findings. Now intubated and sedated but easily arousable and follows commands Normal ammonia level (7) Elevated troponin: Code(s): R79.89 - Other specified abnormal findings of blood chemistry Status: Acute Assessment and Plan: Elevated creatinine in presence of sepsis respiratory failure and chronic kidney disease Serial troponin were flat and now normalized Continue aspirin and statin Resume calcium cleo when blood pressure allows (8) Chronic kidney disease, stage 3: Code(s): N18.30 - Chronic kidney disease, stage 3 unspecified Status: Acute Assessment and Plan: Patient's creatinine appears to be close to baseline\ Monitor urine output electrolytes and creatinine Start diuresis (9) Hypothyroidism: Code(s): E03.9 - Hypothyroidism, unspecified Status: Acute Assessment and Plan: Continue levothyroxine Plan DVT prophylaxis -Lovenox Stress ulcer prophylaxis -Protonix Nutrition -start tube feeds Code Status - Full Code Total Critical Care Time - 30 minutes Due to a high probability of clinically significant, life threatenin
[2023-12-27] MEDS: POTASSIUM CHLORIDE 20 MEQ PACKET (FOR LIQUID) 40 MEQ FEED TUBE ×2 (08:37→17:50)
[2023-12-27] MEDS: ASPIRIN 325 MG TABLET PO (08:37)
[2023-12-27] MEDS: FOLIC ACID 1 MG TABLET FEED TUBE (08:37)
[2023-12-27] MEDS: ENOXAPARIN 40 MG/0.4 ML SYRINGE SUB-Q (08:37)
[2023-12-27] MEDS: FUROSEMIDE INJ 100 MG/10 ML VIAL 80 MG IV PUSH ×2 (08:38→17:47)
[2023-12-27] MEDS: ATORVASTATIN 40 MG TABLET 80 MG PO (08:38)
[2023-12-27] MEDS: methylPREDNISolone SOD SUCC 125 MG VIAL 60 MG IV PUSH (08:38)
[2023-12-27] MEDS: CEFEPIME 2 GM/NS 50 ML 2 GM/50 ML BAG IVPB ×2 (08:41→20:20)
[2023-12-27] MEDS: PANTOPRAZOLE SODIUM IV 40 MG VIAL IV PUSH (08:43)
[2023-12-27] MEDS: MINERAL OIL/WHITE PETROLATUM OINTMENT 1 APPLIC EACH EYE ×2 (08:43→20:20)
[2023-12-27] MEDS: TOLNAFTATE 1% POWDER 45 GM BTL 1 APPLIC TOPICAL ×2 (08:43→20:20)
[2023-12-27] MEDS: VANCOMYCIN 1,500 MG/NS 500 ML 1,500 MG/500 ML BAG 250 MG IVPB (10:42)
[2023-12-27 12:06] LABS: Glucose Point of Care 146 mg/dl (65-105)
[2023-12-27] MEDS: PROPOFOL IV EMULSION 100 ML 16.91 MG IV CONT (12:51)
[2023-12-27] MEDS: MIDAZOLAM 100MG/NS 100ML(*CRX) 100 MG/100 ML BAG IV CONT (14:36)
--- NOTE | 2023-12-27 15:13 | PM.IMPN ---
Progress Note: A&P Assessment and Plan (1) Acute and chronic respiratory failure: Code(s): J96.20 - Acute and chronic respiratory failure, unspecified whether with hypoxia or hypercapnia Status: Acute Assessment and Plan: Acute on chronic respiratory failure secondary to COPD exacerbation, pulmonary edema, questionable pneumonia ABG 7.33/54/95. CXR showing bibasilar airspace disease. CT chest showing mild pulm edema. Patient now intubated and sedated Vent settings per hammersmith helper. Plan for diuresis. PNA seems less likely but now having fevers so abx started. Continue bronchodilators, steroids (2) Sepsis: Code(s): A41.9 - Sepsis, unspecified organism Status: Acute Assessment and Plan: Patient met criteria for sepsis present on admission. Now having fevers. CT chest showing pulmonary edema. UA negative. PCT level low BCx pending. Nasal MRSA screen is negative Continue cefepime and flagyl; Vanco has been stopped. (3) CHF (congestive heart failure): Qualifiers: Heart failure chronicity: acute Heart failure type: unspecified Qualified Code(s): I50.9 - Heart failure, unspecified Code(s): I50.9 - Heart failure, unspecified Status: Acute Assessment and Plan: Suspect she has acute on chronic diastolic CHF. Echo 06/21 showing EF 65-70% and grade I diastolic dysfunction. Mild valvular disease and moderate pulmonary hypertension CT chest suggests pulmonary edema. BNP elevated. IV fluids stopped. Lasix IV started Monitor UOP (4) Pneumonia: Code(s): J18.9 - Pneumonia, unspecified organism Status: Acute Assessment and Plan: As above (5) Altered mental status: Code(s): R41.82 - Altered mental status, unspecified Status: Acute Assessment and Plan: Head CT showing areas of prior infarction without acute intracranial abnormality. Now intubated and sedated but easily arousable and follows commands Normal ammonia level Follow (6) Elevated troponin: Code(s): R79.89 - Other specified abnormal findings of blood chemistry Status: Acute Assessment and Plan: Elevated creatinine in presence of sepsis, respiratory failure and chronic kidney disease Serial troponin were flat and now normalized Continue aspirin and statin (7) Chronic kidney disease, stage 3: Code(s): N18.30 - Chronic kidney disease, stage 3 unspecified Status: Acute Assessment and Plan: Patient's creatinine runs 1.1-1.3 range and appears to be close to baseline Lasix IV started Monitor urine output, electrolytes and creatinine closely (8) Hypothyroidism: Code(s): E03.9 - Hypothyroidism, unspecified Status: Acute Assessment and Plan: TSH 0.23 with normal FT4 earlier this month. Continue levothyroxine Plan DVT prophylaxis -Lovenox Stress ulcer prophylaxis -Protonix Nutrition -start tube feeds Code Status - Full Code Subjective Date/time seen: 12/27/23 15:13 Interval history: 63yo female with COPD, CKD, PVD and CVA who is brought in by EMS after being found unresponsive. Assuming care. Chart reviewed. Patient intubated and sedated. Had fever yesterday. Never required Levophed. Was following commands earlier but became agitated so sedation increased. Review of Systems Review of Systems: ROS unobtainable: Yes unobtainable due to endotracheal tube Exam Narrative: Tm 101.4 98.2 110/79 40 20 93% MV Gen - intubated and sedated. HEENT - ETT and NGT secured. Neck - Rt TLC IJ Chest - lungs clear anteriorly and in the flanks. CV - regular, bradycardia. Tele showing sinus bradycardia. Abd - Soft, ND, +BS - urine clear Ext - bilateral AKA Neuro - sedated Psych - unable to assess Skin - Warm and dry Objective Data Vital Signs Vital Signs: Vital Signs - 24 hr 12/26/23 15:19 12/26/23 15:19 12/26/23 16:05 Temperature Pulse Rate 85 85 74 R
[2023-12-27 18:19] LABS: Glucose Point of Care 175 mg/dl (65-105)
[2023-12-27] MEDS: FENTANYL 2,500MCG/NS250ML(*CRX 2,500 MCG/250 ML BAG 12.5 MCG IV CONT (20:38)
[2023-12-28] VITALS (40 sets, daily range): BP systolic 108–180; BP diastolic 46–82; PULSE 40–110; RESP 13–26; TEMP 36.2–37; O2SAT 93–100
[2023-12-28 00:11] LABS: Glucose Point of Care 179 mg/dl (65-105)
[2023-12-28 05:28] LABS: Alveolar/Arterial O2 Gradient 243.4 mmHg; Base Excess ABG 4.1 mEq/l (+/-2.0); Carboxyhemoglobin 0.3 % THb (0-2.0); Fractional Inspired Oxygen 50 %; HCO3 ABG 25.4 mEq/l (22.0-26.0); Methemoglobin ABG 0.2 %THb (0-1.5); Oxygen Saturation ABG 97.6 % (95.0-100.0); Oxyhemoglobin 95.2 % THb (90.0-100.0); PCO2 ABG 26.9 mmHg (35.0-45.0); PO2 ABG 82.8 mmHg (80.0-100.0); PO2 FiO2 Ratio Arterial Blood 1.66 %; Reduced Hemoglobin 4.3 %THb (0-5.0); Total Hemoglobin 9.6 g/dL (12.0-18.0)
[2023-12-28 05:31] LABS: Arterial Blood Gas Vent Mode CMV; Arterial Blood Gas Ventilator rate 20 /MIN; Device VENTILATOR; Modified Allen's Test Pass; Site Drawn RIGHT RADIAL; pH ABG 7.593 (7.350-7.450)
[2023-12-28 05:32] LABS: Arterial Blood Gas PEEP 5 cmH2O; Arterial Blood Gas Tidal Volume 450 ml
[2023-12-28 06:09] LABS: Basophils Percent Auto 0.2 % (0.2-1.2); Eosinophils Percent Auto 0.1 % (0-4.4); Hematocrit 26.9 % (37.0-47.0); Hemoglobin 8.3 g/dL (12.0-15.0); Immature Granulocyte Absolute 0.05 K/mm3 (0.00-0.031); Immature Granulocyte Percent A 0.5 % (0-0.5); Lymphocytes Absolute Auto 0.91 K/mm3 (0.9-3.2); Lymphocytes Percent Auto 9.1 % (18.3-44.2); Mean Corpuscular HGB Conc 30.9 g/dl (32-36); Mean Corpuscular Hemoglobin 30.9 pg (26-34); Mean Platelet Volume 9.1 fl (7.4-10.4); Monocytes Absolute Auto 0.7 K/mm3 (0.1-0.6); Monocytes Percent Auto 6.8 % (2.6-8.5); Neutrophils Absolute Auto 8.4 K/mm3 (1.3-6.7); Neutrophils Percent Auto 83.3 % (45.5-73.1); Platelet Count Result 229 k/mm3 (150-375); Red Blood Count 2.69 M/mm3 (4.2-5.4); Red Cell Distribution Width 17.2 % (11.5-14.5); White Blood Count 10.1 K/mm3 (4.5-10.0)
[2023-12-28] MEDS: metroNIDAZOLE 500 MG/ISO 100ML 500 MG/100 ML BAG 100 MG IVPB (06:19)
[2023-12-28] MEDS: CENTRAL LINE FLUSH 10 ML IV PUSH ×3 (06:19→19:26)
[2023-12-28] MEDS: LEVOTHYROXINE SODIUM 50 MCG TABLET FEED TUBE (06:20)
[2023-12-28 06:30] LABS: Alanine Aminotransferase 14 U/L (6-35); Albumin Level 2.8 g/dL (3.5-5.1); Alkaline Phosphatase 57 U/L (38-126); Anion Gap 3 mmol/L (8-16); Aspartate Amino Transferase 13 U/L (14-36); Bilirubin,Total 0.4 mg/dL (0.2-1.3); Blood Urea Nitrogen 38 mg/dL (7-17); Calcium 8.5 mg/dL (8.4-10.2); Carbon Dioxide 27 mmol/L (22-30); Chloride 107 mmol/L (98-107); Estimated CRCL calculation 39 ml/min; Estimated Glomerular Filt Rate 38; Glucose 180 mg/dL (65-110); Magnesium 1.9 mg/dL (1.6-2.3); Potassium 3.1 mmol/L (3.4-5.0); Sodium 137 mmol/L (137-145)
--- NOTE | 2023-12-28 08:07 | WPDINTPN ---
Progress Note: A&P Assessment and Plan (1) Acute and chronic respiratory failure: Code(s): J96.20 - Acute and chronic respiratory failure, unspecified whether with hypoxia or hypercapnia Status: Acute Assessment and Plan: Acute on chronic Respiratory failure secondary to COPD exacerbation, pulmonary edema, questionable pneumonia Patient now intubated and sedated Vent settings, chest x-ray ABG which is a mixed sample reviewed. Decrease tidal volume to 400 and rate to 16 Continue full mechanical ventilation support to prevent hypoxemia/hypercarbia and end organ damage. Sedation holiday and evaluate for weaning trial Continue diuresis Treatment of pneumonia as below Continue bronchodilators, steroids Low tidal volume ventilation strategy to prevent volutrauma (2) Sepsis: Code(s): A41.9 - Sepsis, unspecified organism Status: Acute Assessment and Plan: Patient met criteria for sepsis. CT scan is not impressive for pneumonia although it does show pulmonary edema UA negative Blood cultures have been sent. Pending sputum culture Procalcitonin level is is low Hold further IV fluids due to pulmonary edema Nasal MRSA screen is negative Continue cefepime but will discontinued vancomycin (3) CHF (congestive heart failure): Qualifiers: Heart failure chronicity: acute Heart failure type: unspecified Qualified Code(s): I50.9 - Heart failure, unspecified Code(s): I50.9 - Heart failure, unspecified Status: Acute Assessment and Plan: Echo 06/21 Summary ? 1. Definity contrast administered improved wall motion interpretation. ? 2. Left ventricular chamber dimension is normal. ? 3. Left ventricular systolic function is normal, estimated at 65-70%. ? 4. There is mild concentric increased left ventricular wall thickness. ? 5. The left ventricular diastolic function is grade I diastolic dysfunction. ? 6. E/e' 9 is minimally elevated. ? 7. Mild right ventricular hypertrophy. ? 8. Left atrial chamber dimension is moderately enlarged. ? 9. There is mild aortic valve sclerosis. ? 10. There is mild mitral valve regurgitation. ? 11. There is trace tricuspid valve regurgitation. ? 12. Moderate pulmonary hypertension, estimated pulmonary arterial systolic pressure is [address] scan suggest pulmonary edema. BNP elevated Hold further IV fluids Continue diuresis (4) Pulmonary edema: Code(s): J81.1 - Chronic pulmonary edema Status: Acute Assessment and Plan: See above (5) Pneumonia: Code(s): J18.9 - Pneumonia, unspecified organism Status: Acute Assessment and Plan: See above (6) Altered mental status: Code(s): R41.82 - Altered mental status, unspecified Status: Acute Assessment and Plan: Head CT IMPRESSION: 1. Areas of prior infarction without acute intracranial abnormality. 2. Age related findings. Now intubated and sedated but easily arousable and follows commands Normal ammonia level (7) Elevated troponin: Code(s): R79.89 - Other specified abnormal findings of blood chemistry Status: Acute Assessment and Plan: Elevated creatinine in presence of sepsis respiratory failure and chronic kidney disease Serial troponin were flat and now normalized Continue aspirin and statin (8) Chronic kidney disease, stage 3: Code(s): N18.30 - Chronic kidney disease, stage 3 unspecified Status: Acute Assessment and Plan: Patient's creatinine appears to be close to baseline\ Monitor urine output electrolytes and creatinine Continue diuresis (9) Hypothyroidism: Code(s): E03.9 - Hypothyroidism, unspecified Status: Acute Assessment and Plan: Continue levothyroxine (10) Electrolyte abnormality: Code(s): E87.8 - Other disorders of electrolyte and fluid balance, not elsewhere classified Status: Acute Plan DVT prophylaxis -Lovenox Stress ulcer prophylaxis -Prot
[2023-12-28] MEDS: PANTOPRAZOLE SODIUM IV 40 MG VIAL IV PUSH (08:11)
[2023-12-28] MEDS: methylPREDNISolone SOD SUCC 125 MG VIAL 60 MG IV PUSH (08:11)
[2023-12-28] MEDS: KCL 40 MEQ/WATER 100 ML 100 ML 25 ML IVPB (08:14)
[2023-12-28] MEDS: POTASSIUM CHLORIDE 20 MEQ PACKET (FOR LIQUID) 40 MEQ FEED TUBE (08:23)
[2023-12-28] MEDS: ATORVASTATIN 40 MG TABLET 80 MG PO (08:23)
[2023-12-28] MEDS: ASPIRIN 325 MG TABLET PO (08:23)
[2023-12-28] MEDS: FOLIC ACID 1 MG TABLET FEED TUBE (08:23)
[2023-12-28] MEDS: CEFEPIME 2 GM/NS 50 ML 2 GM/50 ML BAG IVPB ×2 (08:24→21:54)
[2023-12-28] MEDS: ENOXAPARIN 40 MG/0.4 ML SYRINGE SUB-Q (08:24)
[2023-12-28] MEDS: TOLNAFTATE 1% POWDER 45 GM BTL 1 APPLIC TOPICAL ×2 (09:00→19:26)
[2023-12-28] MEDS: MINERAL OIL/WHITE PETROLATUM OINTMENT 1 APPLIC EACH EYE (09:00)
--- NOTE | 2023-12-28 11:25 | PCFNICU ---
Addendum entered by Carlyn Arriaga RD, LDN 12/28/23 13:27: Patient was able to wean from vent. Tube feedings have been canceled. Diet order: NPO at this time. Original Note: ICU Rounding Note: Pt current nutrition is Vital AF 1.2 at 45 ml/hr Last recorded weight is 81.2 kg, up from 80.5 kg on admit. Bowel Motility: No BM reported at this time. Labs Reviewed: Glu 180, Cr 1.4,BUN 38, K 3.1,Alb 2.8 Meds Noted:Fentanyl,Versed, Lipitor Skin: WNL Additional Notes: patient tube feedings had been on hold for weaning trial. Patient did not tolerate. Recommend restarting tube feedings of Vital AF and increasing feedings to 55 ml/hr providing 1452 kcals/91 gms protein/ 981 ml water. Meeting 100% kcal needs at 18 kcal/kg and 94% protein needs at 1.2-1.4 gm/kg. Following daily in ICU rounds. Will monitor weight labs, skin, meds, tube feeding tolerance every Monday and Monday. .
[2023-12-28] MEDS: FUROSEMIDE INJ 100 MG/10 ML VIAL 80 MG IV PUSH (12:38)
[2023-12-28] MEDS: ALBUMIN HUMAN 25% 25 GM/100 ML 100 ML IVPB (12:39)
[2023-12-28 13:04] LABS: Alveolar/Arterial O2 Gradient 219.9 mmHg; Base Excess ABG -0.7 mEq/l (+/-2.0); Fractional Inspired Oxygen 35 %; HCO3 ABG 25.3 mEq/l (22.0-26.0); Oxygen Content ABG 8.7 %vol (16.0-22.0); PCO2 ABG 47.9 mmHg (35.0-45.0); PO2 FiO2 Ratio Arterial Blood 1.03 %; Total Hemoglobin 10.8 g/dL (12.0-18.0); pH ABG 7.341 (7.350-7.450)
[2023-12-28 13:23] LABS: PO2 ABG 36.2 mmHg (80.0-100.0)
[2023-12-28 13:24] LABS: Arterial Blood Gas Vent Mode SPONTANEOUS; Device VENTILATOR; Oxygen Saturation ABG 65.3 % (95.0-100.0); Oxyhemoglobin 56.9 % THb (90.0-100.0); Site Drawn RIGHT BRACHIAL
[2023-12-28 13:25] LABS: Arterial Blood Gas PEEP 5 cmH2O; Arterial Blood Gas Pressure Support 5 cmH2O
[2023-12-28] MEDS: dexmedeTOMIDine 400 MCG/100 ML 400 MCG/100 ML BAG IV CONT (13:42)
--- NOTE | 2023-12-28 16:25 | PM.IMPN ---
Progress Note: A&P Assessment and Plan (1) Acute and chronic respiratory failure: Code(s): J96.20 - Acute and chronic respiratory failure, unspecified whether with hypoxia or hypercapnia Status: Acute Assessment and Plan: Acute on chronic respiratory failure secondary to COPD exacerbation, pulmonary edema and/or PNA ABG 7.33/54/95 on MV. CXR showing bibasilar airspace disease. CT chest showing mild pulm edema. Patient was intubated and sedated She was diuresed. PNA seems less likely but now having fevers so abx started. Continue bronchodilators, steroids Able to be extubated later in the day today to face mask (2) Sepsis: Code(s): A41.9 - Sepsis, unspecified organism Status: Acute Assessment and Plan: Patient met criteria for sepsis present on admission. Now having fevers. CT chest showing pulmonary edema. UA negative. PCT level low BCx pending. Nasal MRSA screen is negative Sputum Cx pending Continue cefepime; Vanco and Flagyl have been stopped. (3) CHF (congestive heart failure): Qualifiers: Heart failure chronicity: acute Heart failure type: unspecified Qualified Code(s): I50.9 - Heart failure, unspecified Code(s): I50.9 - Heart failure, unspecified Status: Acute Assessment and Plan: Suspect she has acute on chronic diastolic CHF. Echo 06/21 showing EF 65-70% and grade I diastolic dysfunction. Mild valvular disease and moderate pulmonary hypertension CT chest suggests pulmonary edema. BNP elevated. IV fluids stopped. Lasix IV started Monitor UOP (4) Pneumonia: Code(s): J18.9 - Pneumonia, unspecified organism Status: Acute Assessment and Plan: As above (5) Altered mental status: Code(s): R41.82 - Altered mental status, unspecified Status: Acute Assessment and Plan: Head CT showing areas of prior infarction without acute intracranial abnormality. Now intubated and sedated but easily arousable and follows commands Normal ammonia level Monitor mental status after extubation Follow (6) Elevated troponin: Code(s): R79.89 - Other specified abnormal findings of blood chemistry Status: Acute Assessment and Plan: Elevated creatinine in presence of sepsis, respiratory failure and chronic kidney disease Serial troponin were flat and now normalized Continue aspirin and statin (7) Chronic kidney disease, stage 3: Code(s): N18.30 - Chronic kidney disease, stage 3 unspecified Status: Acute Assessment and Plan: Patient's creatinine runs 1.1-1.3 range and appears to be close to baseline Lasix IV started Monitor urine output, electrolytes and creatinine closely (8) Hypothyroidism: Code(s): E03.9 - Hypothyroidism, unspecified Status: Acute Assessment and Plan: TSH 0.23 with normal FT4 earlier this month. Continue levothyroxine Plan DVT prophylaxis -Lovenox Stress ulcer prophylaxis -Protonix Nutrition -start tube feeds Code Status - Full Code Subjective Date/time seen: 12/28/23 16:25 Interval history: 63yo female with COPD, CKD, PVD and CVA who is brought in by EMS after being found unresponsive. Patient seen earlier in the morning and was intubated and sedated. She has since been extubated. Exam Narrative: AF 97.9 164/60 72 20 95% FM Gen - intubated and sedated. HEENT - ETT and NGT secured. Neck - Rt TLC IJ Chest - lungs clear anteriorly and in the flanks. CV - regular, bradycardia. Tele showing sinus bradycardia. Abd - Soft, ND, +BS - urine clear Ext - bilateral AKA Neuro - sedated Psych - unable to assess Skin - Warm and dry mild pink erythema with blanching bilateral anterior thighs Objective Data Vital Signs Vital Signs: Vital Signs - 24 hr 12/27/23 17:01 12/27/23 17:14 12/27/23 17:18 Temperature Pulse Rate 68 76 78 Respiratory Rate 20 24 H Blood Pressure Pulse Oxim
[2023-12-28 18:57] LABS: Anion Gap 9 mmol/L (8-16); Blood Urea Nitrogen 43 mg/dL (7-17); Calcium 9.1 mg/dL (8.4-10.2); Carbon Dioxide 27 mmol/L (22-30); Chloride 105 mmol/L (98-107); Estimated CRCL calculation 34 ml/min; Estimated Glomerular Filt Rate 33; Glucose 160 mg/dL (65-110); Potassium 4.5 mmol/L (3.4-5.0); Sodium 141 mmol/L (137-145)
[2023-12-29] VITALS (17 sets, daily range): BP systolic 125–181; BP diastolic 56–114; PULSE 46–120; RESP 17–28; TEMP 36.2–37.3; O2SAT 96–100
[2023-12-29] MEDS: CENTRAL LINE FLUSH 10 ML IV PUSH ×3 (05:07→20:16)
--- NOTE | 2023-12-29 05:16 | PCRCNOTE ---
patient adamantly refused the abg; RN was notified
[2023-12-29 05:51] LABS: Basophils Percent Auto 0.1 % (0.2-1.2); Eosinophils Percent Auto 0.1 % (0-4.4); Hematocrit 31.6 % (37.0-47.0); Hemoglobin 9.6 g/dL (12.0-15.0); Immature Granulocyte Absolute 0.06 K/mm3 (0.00-0.031); Immature Granulocyte Percent A 0.4 % (0-0.5); Lymphocytes Absolute Auto 1.16 K/mm3 (0.9-3.2); Lymphocytes Percent Auto 8.1 % (18.3-44.2); Mean Corpuscular HGB Conc 30.4 g/dl (32-36); Mean Corpuscular Hemoglobin 31.2 pg (26-34); Mean Corpuscular Volume 102.6 fl (80-100); Mean Platelet Volume 9.1 fl (7.4-10.4); Monocytes Absolute Auto 0.8 K/mm3 (0.1-0.6); Monocytes Percent Auto 5.8 % (2.6-8.5); Neutrophils Absolute Auto 12.2 K/mm3 (1.3-6.7); Neutrophils Percent Auto 85.5 % (45.5-73.1); Platelet Count Result 262 k/mm3 (150-375); Red Blood Count 3.08 M/mm3 (4.2-5.4); Red Cell Distribution Width 16.6 % (11.5-14.5); White Blood Count 14.3 K/mm3 (4.5-10.0)
[2023-12-29] MEDS: LEVOTHYROXINE SODIUM 50 MCG TABLET FEED TUBE (05:51)
[2023-12-29 06:02] LABS: Alanine Aminotransferase 13 U/L (6-35); Albumin Level 3.9 g/dL (3.5-5.1); Alkaline Phosphatase 51 U/L (38-126); Anion Gap 5 mmol/L (8-16); Aspartate Amino Transferase 17 U/L (14-36); Bilirubin,Total 0.7 mg/dL (0.2-1.3); Blood Urea Nitrogen 45 mg/dL (7-17); Calcium 9.4 mg/dL (8.4-10.2); Carbon Dioxide 29 mmol/L (22-30); Chloride 105 mmol/L (98-107); Estimated CRCL calculation 44 ml/min; Estimated Glomerular Filt Rate 46; Glucose 114 mg/dL (65-110); Magnesium 2.1 mg/dL (1.6-2.3); Potassium 4.1 mmol/L (3.4-5.0); Sodium 139 mmol/L (137-145)
--- NOTE | 2023-12-29 08:41 | WPDINTPN ---
Progress Note: A&P Assessment and Plan (1) Acute and chronic respiratory failure: Code(s): J96.20 - Acute and chronic respiratory failure, unspecified whether with hypoxia or hypercapnia Status: Acute Assessment and Plan: Acute on chronic Respiratory failure secondary to COPD exacerbation, pulmonary edema, questionable pneumonia Patient was intubated and sedated extubated after a successful weaning trial Currently on nasal cannula with PVR ran BiPAP Continue diuresis Treatment of pneumonia as below Continue bronchodilators, steroids Low tidal volume ventilation strategy to prevent volutrauma (2) Sepsis: Code(s): A41.9 - Sepsis, unspecified organism Status: Acute Assessment and Plan: Patient met criteria for sepsis. CT scan is not impressive for pneumonia although it does show pulmonary edema UA negative Blood cultures have been sent. Pending sputum culture Procalcitonin level is is low Hold further IV fluids due to pulmonary edema Nasal MRSA screen is negative Continue cefepime but will discontinued vancomycin (3) CHF (congestive heart failure): Qualifiers: Heart failure chronicity: acute Heart failure type: unspecified Qualified Code(s): I50.9 - Heart failure, unspecified Code(s): I50.9 - Heart failure, unspecified Status: Acute Assessment and Plan: Echo 06/21 Summary ? 1. Definity contrast administered improved wall motion interpretation. ? 2. Left ventricular chamber dimension is normal. ? 3. Left ventricular systolic function is normal, estimated at 65-70%. ? 4. There is mild concentric increased left ventricular wall thickness. ? 5. The left ventricular diastolic function is grade I diastolic dysfunction. ? 6. E/e' 9 is minimally elevated. ? 7. Mild right ventricular hypertrophy. ? 8. Left atrial chamber dimension is moderately enlarged. ? 9. There is mild aortic valve sclerosis. ? 10. There is mild mitral valve regurgitation. ? 11. There is trace tricuspid valve regurgitation. ? 12. Moderate pulmonary hypertension, estimated pulmonary arterial systolic pressure is [address] scan suggest pulmonary edema. BNP elevated Hold further IV fluids Continue diuresis (4) Pulmonary edema: Code(s): J81.1 - Chronic pulmonary edema Status: Acute Assessment and Plan: See above (5) Pneumonia: Code(s): J18.9 - Pneumonia, unspecified organism Status: Acute Assessment and Plan: See above (6) Altered mental status: Code(s): R41.82 - Altered mental status, unspecified Status: Acute Assessment and Plan: Head CT IMPRESSION: 1. Areas of prior infarction without acute intracranial abnormality. 2. Age related findings. Patient now alert oriented x3 Normal ammonia level (7) Elevated troponin: Code(s): R79.89 - Other specified abnormal findings of blood chemistry Status: Acute Assessment and Plan: Elevated creatinine in presence of sepsis respiratory failure and chronic kidney disease Serial troponin were flat and now normalized Continue aspirin and statin (8) Chronic kidney disease, stage 3: Code(s): N18.30 - Chronic kidney disease, stage 3 unspecified Status: Acute Assessment and Plan: Patient's creatinine appears to be close to baseline\ Monitor urine output electrolytes and creatinine Continue diuresis (9) Hypothyroidism: Code(s): E03.9 - Hypothyroidism, unspecified Status: Acute Assessment and Plan: Continue levothyroxine (10) Electrolyte abnormality: Code(s): E87.8 - Other disorders of electrolyte and fluid balance, not elsewhere classified Status: Acute Assessment and Plan: Potassium and magnesium improved after replacement (11) Essential hypertension: Code(s): I10 - Essential (primary) hypertension Status: Acute Assessment and Plan: Resume Cardizem CD but at a half dose and up titr
[2023-12-29] MEDS: CEFEPIME 2 GM/NS 50 ML 2 GM/50 ML BAG IVPB (08:42)
[2023-12-29] MEDS: methylPREDNISolone SOD SUCC 125 MG VIAL 60 MG IV PUSH (08:43)
[2023-12-29] MEDS: PANTOPRAZOLE SODIUM IV 40 MG VIAL IV PUSH (08:44)
[2023-12-29] MEDS: FOLIC ACID 1 MG TABLET PO (08:45)
[2023-12-29] MEDS: ATORVASTATIN 40 MG TABLET 80 MG PO (08:45)
[2023-12-29] MEDS: ENOXAPARIN 40 MG/0.4 ML SYRINGE SUB-Q (08:45)
[2023-12-29] MEDS: ASPIRIN 325 MG TABLET PO (08:45)
[2023-12-29] MEDS: dilTIAZem HCL CD 240 MG CAP.24HR PO (08:46)
[2023-12-29] MEDS: FUROSEMIDE 40 MG TABLET PO (08:46)
[2023-12-29] MEDS: FLUTICASONE/UMECLIDIN/VILANTER 100-62.5-25 MCG ELLIPTA 1 PUFF INHALATION (09:09)
--- NOTE | 2023-12-29 10:48 | PCNFU ---
Nutrition Follow-Up Complete: Inadequate Energy Intake as related to mechanical ventilation as evidenced by tube feeding start. Goal:Meet estimated nutritional needs. patient is meeting goal. No new goal. Pt current nutrition is Heart Healthy. Last recorded weight is 80.2 kg, stable. Bowel Motility: +BM reported Labs Reviewed:Cr 1.2, BUN 45, Glu 114 Meds Noted:Lipitor, Folic Acid, Cefepime, Lovenox Skin: WNL Additional Notes: Patient has been extubated. Diet order has been advanced to a heart healthy diet. Oral intake today > 75% of meals. Agree with diet orders. No further nutritional interventions needed at this time. Will monitor weight labs, skin, meds, oral intake every 7 days.
--- NOTE | 2023-12-29 13:57 | PC.NURSE ---
This patient, Pamela Plata, was transferred to room 232 on 12/29/23 at 1340. Personal belongings sent with patient. Report given to COURTNEY Torres. Appropriate documentation sent with patient.
--- NOTE | 2023-12-29 14:42 | PCPTNOTE ---
Attempted PT evaluation, pt refused. Pt stated her spouse picks her up and puts her in her wheelchair. RN aware. Will follow
--- NOTE | 2023-12-29 15:26 | PM.IMPN ---
Progress Note: A&P Assessment and Plan (1) Acute and chronic respiratory failure: Code(s): J96.20 - Acute and chronic respiratory failure, unspecified whether with hypoxia or hypercapnia Status: Acute Assessment and Plan: Acute on chronic respiratory failure secondary to COPD exacerbation, pulmonary edema and/or PNA ABG 7.33/54/95 on MV. CXR showing bibasilar airspace disease. CT chest showing mild pulm edema. Patient was intubated and sedated She was diuresed. PNA seemed less likely but now having fevers so abx started. Extubated Continue bronchodilators, steroids (change to oral) Wean o2 as tolerated. (2) Sepsis: Code(s): A41.9 - Sepsis, unspecified organism Status: Acute Assessment and Plan: Patient met criteria for sepsis present on admission. Now having fevers. CT chest showing pulmonary edema. UA negative. PCT level low BCx NGTD Nasal MRSA screen is negative Sputum Cx pending Currently on cefepime; Vanco and Flagyl have been stopped. Change to Augmentin to complete a course (3) CHF (congestive heart failure): Qualifiers: Heart failure chronicity: acute Heart failure type: unspecified Qualified Code(s): I50.9 - Heart failure, unspecified Code(s): I50.9 - Heart failure, unspecified Status: Acute Assessment and Plan: Suspect she has acute on chronic diastolic CHF. Echo 06/21 showing EF 65-70% and grade I diastolic dysfunction. Mild valvular disease and moderate pulmonary hypertension CT chest suggests pulmonary edema. BNP elevated. IV fluids stopped. Lasix IV started but now transitioned to oral. Monitor UOP Add empagliflozin. (4) Pneumonia: Code(s): J18.9 - Pneumonia, unspecified organism Status: Acute Assessment and Plan: As above Change to oral abx. (5) Altered mental status: Code(s): R41.82 - Altered mental status, unspecified Status: Acute Assessment and Plan: Head CT showing areas of prior infarction without acute intracranial abnormality. Normal ammonia level mental status better Follow (6) Elevated troponin: Code(s): R79.89 - Other specified abnormal findings of blood chemistry Status: Acute Assessment and Plan: Elevated creatinine in presence of sepsis, respiratory failure and chronic kidney disease Serial troponin were flat and now normalized Continue aspirin and statin (7) Chronic kidney disease, stage 3: Code(s): N18.30 - Chronic kidney disease, stage 3 unspecified Status: Acute Assessment and Plan: Patient's creatinine runs 1.1-1.3 range and appears to be close to baseline Lasix started and tolerated this well Monitor urine output, electrolytes and creatinine closely (8) Hypothyroidism: Code(s): E03.9 - Hypothyroidism, unspecified Status: Acute Assessment and Plan: TSH 0.23 with normal FT4 earlier this month. Continue levothyroxine Plan Anemia - check iron studies, b12. DVT prophylaxis -Lovenox Stress ulcer prophylaxis -Protonix Code Status - Full Code Subjective Date/time seen: 12/29/23 15:26 Interval history: 63yo female with COPD, CKD, PVD and CVA who is brought in by EMS after being found unresponsive. Patient wore the mask for a few hours last night. Not on oxygen or mask at home. Has JANELL per patient but does not wear mask at home. Large BM yesterday. No CP. No n/v. Quit tobacco 2 years ago. Requesting discharge Exam Narrative: AF 99.2 140/56 98 21 98% 3L NC Gen - NARD Neck - Rt TLC IJ Chest - inspiratory and expiratory crackles. CV - RRR S1/S2. Tele showing sinus bradycardia and 2 episodes of NSVT Abd - Soft, ND, +BS Ext - bilateral AKA Neuro - sedated Skin - Warm and dry; decrease in bilateral anterior thighs erythema Objective Data Vital Signs Vital Signs: Vital Signs - 24 hr 12/28/23 16:00 12/28/23 16:26 12/28/23 16:00 Temperature
[2023-12-29] MEDS: ARIPiprazole 5 MG TABLET PO (20:15)
[2023-12-29] MEDS: GABAPENTIN 300 MG CAPSULE 600 MG PO (20:16)
[2023-12-29] MEDS: AMOXICILLIN/CLAVULANATE K 875-125 MG TAB 1 TABLET PO (20:16)
[2023-12-29] MEDS: TOLNAFTATE 1% POWDER 45 GM BTL 1 APPLIC TOPICAL (20:16)
[2023-12-30] VITALS (13 sets, daily range): BP systolic 93–131; BP diastolic 65–77; PULSE 76–106; RESP 18–20; TEMP 36.2–36.6; O2SAT 90–99
[2023-12-30] MEDS: LEVOTHYROXINE SODIUM 50 MCG TABLET PO (04:46)
[2023-12-30] MEDS: CENTRAL LINE FLUSH 10 ML IV PUSH (04:46)
[2023-12-30 04:58] LABS: Basophils Percent Auto 0.1 % (0.2-1.2); Eosinophils Absolute Auto 0.1 K/mm3 (0-0.3); Eosinophils Percent Auto 0.4 % (0-4.4); Hematocrit 30.9 % (37.0-47.0); Hemoglobin 9.6 g/dL (12.0-15.0); Immature Granulocyte Absolute 0.12 K/mm3 (0.00-0.031); Immature Granulocyte Percent A 0.7 % (0-0.5); Lymphocytes Absolute Auto 1.63 K/mm3 (0.9-3.2); Lymphocytes Percent Auto 8.9 % (18.3-44.2); Mean Corpuscular HGB Conc 31.1 g/dl (32-36); Mean Corpuscular Hemoglobin 31.1 pg (26-34); Mean Platelet Volume 9.1 fl (7.4-10.4); Monocytes Absolute Auto 1.4 K/mm3 (0.1-0.6); Monocytes Percent Auto 7.4 % (2.6-8.5); Neutrophils Absolute Auto 15.1 K/mm3 (1.3-6.7); Neutrophils Percent Auto 82.5 % (45.5-73.1); Platelet Count Result 265 k/mm3 (150-375); Red Blood Count 3.09 M/mm3 (4.2-5.4); Red Cell Distribution Width 16.1 % (11.5-14.5); White Blood Count 18.3 K/mm3 (4.5-10.0)
[2023-12-30 05:08] LABS: Alanine Aminotransferase 17 U/L (6-35); Albumin Level 3.6 g/dL (3.5-5.1); Alkaline Phosphatase 55 U/L (38-126); Anion Gap 7 mmol/L (8-16); Aspartate Amino Transferase 24 U/L (14-36); Bilirubin,Total 0.7 mg/dL (0.2-1.3); Blood Urea Nitrogen 42 mg/dL (7-17); Calcium 8.9 mg/dL (8.4-10.2); Carbon Dioxide 28 mmol/L (22-30); Chloride 102 mmol/L (98-107); Estimated CRCL calculation 47 ml/min; Estimated Glomerular Filt Rate 50; Glucose 91 mg/dL (65-110); Potassium 3.5 mmol/L (3.4-5.0); Sodium 137 mmol/L (137-145)
[2023-12-30 05:35] LABS: Iron 74 ug/dL (37-170); Percent Iron Saturation 28 % (20-50)
[2023-12-30 06:17] LABS: Folic Acid > 20.0 ng/mL (2.76->20)
[2023-12-30] MEDS: FLUTICASONE/UMECLIDIN/VILANTER 100-62.5-25 MCG ELLIPTA 1 PUFF INHALATION (08:30)
--- NOTE | 2023-12-30 08:52 | PCPTNOTE ---
Attempted to see pt for physical therapy evaluation, pt states she has not transferred [facility] in 2 years. States she worked with OT yesterday and they discussed HH upon discharge and she does not wish to work on transfers while admitted, will d/c order and call provider.
[2023-12-30] MEDS: dilTIAZem HCL CD 240 MG CAP.24HR PO (09:49)
[2023-12-30] MEDS: ASPIRIN 325 MG TABLET PO (09:49)
[2023-12-30] MEDS: ATORVASTATIN 40 MG TABLET 80 MG PO (09:49)
[2023-12-30] MEDS: predniSONE 20 MG TABLET 40 MG PO (09:49)
[2023-12-30] MEDS: GABAPENTIN 300 MG CAPSULE 600 MG PO (09:50)
[2023-12-30] MEDS: PANTOPRAZOLE SODIUM IV 40 MG VIAL IV PUSH (09:50)
[2023-12-30] MEDS: EMPAGLIFLOZIN 10 MG TABLET PO (09:50)
[2023-12-30] MEDS: FOLIC ACID 1 MG TABLET PO (09:50)
[2023-12-30] MEDS: FUROSEMIDE 40 MG TABLET PO (09:50)
[2023-12-30] MEDS: AMOXICILLIN/CLAVULANATE K 875-125 MG TAB 1 TABLET PO (09:50)
[2023-12-30] MEDS: ENOXAPARIN 40 MG/0.4 ML SYRINGE SUB-Q (09:50)
--- NOTE | 2023-12-30 17:31 | PM.DS ---
DS: Admitting Diagnosis Discharge Date 12/30/23 Admitting Diagnosis Unresponsive DS: Discharge Diagnosis Discharge Diagnosis (1) Acute and chronic respiratory failure: Code(s): J96.20 - Acute and chronic respiratory failure, unspecified whether with hypoxia or hypercapnia Status: Acute (2) Sepsis: Code(s): A41.9 - Sepsis, unspecified organism Status: Acute (3) CHF (congestive heart failure): Qualifiers: Heart failure chronicity: acute Heart failure type: unspecified Qualified Code(s): I50.9 - Heart failure, unspecified Code(s): I50.9 - Heart failure, unspecified Status: Acute (4) Pneumonia: Code(s): J18.9 - Pneumonia, unspecified organism Status: Acute (5) Altered mental status: Code(s): R41.82 - Altered mental status, unspecified Status: Acute (6) Elevated troponin: Code(s): R79.89 - Other specified abnormal findings of blood chemistry Status: Acute (7) Chronic kidney disease, stage 3: Code(s): N18.30 - Chronic kidney disease, stage 3 unspecified Status: Acute (8) Hypothyroidism: Code(s): E03.9 - Hypothyroidism, unspecified Status: Acute DS: Summary Hospital Course Reason for hospitalization: 63yo female with COPD, CKD, PVD and CVA who is brought in by EMS after being found unresponsive. Please see H&P for details. Hospital Course: Patient found to have acute on chronic respiratory failure secondary to COPD exacerbation, pulmonary edema and/or PNA. ABG 7.33/54/95 on MV.? CXR showing bibasilar airspace disease. CT chest showing mild pulmonary edema. Patient was intubated and sedated. She was started on diuretics. Steroids started. PNA seemed less likely initially but then developed fevers so abx started. Patient met criteria for sepsis present on admission.?UA negative. PCT level low. BCx NGTD. Nasal MRSA screen was negative. Sputum Cx negative. Treated with cefepime; Vanco and Flagyl were stopped. Suspect she had acute on chronic diastolic CHF. Echo 06/21 showing EF 65-70% and grade I diastolic dysfunction. Elevated troponin in presence of sepsis, respiratory failure and chronic kidney disease. Serial troponin were flat and now normalized. Mild valvular disease and moderate pulmonary hypertension. BNP elevated to 2800. IV fluids stopped. Lasix IV started. Empagliflozin added. Patient was brought in with altered mental status. Head CT showing areas of prior infarction without acute intracranial abnormality. Ammonia level negative. [place] related to respiratory failure. She is also on narcotics which were held so consider related to narcotic use. Her mental status improved and she returned to her baseline. Patient extubated . We changed her to Augmentin to complete a course of antibiotics. Changed to oral Lasix. Steroids changed to prednisone. She was weaned to room air but has O2 at home and uses this as needed. Patient voiced desire not to come back to the hospital and encouraged her to speak with her about her wishes. She overall did well and was able to be discharged home on 12/30/23. hospital course and discharge instructions were discussed in detail with (with patient's permission). All questions answered. Status at Discharge Cognitive/behavioral status at discharge: stable Time Spent with Patient Time attestation: Total time spent providing and/or coordinating discharge services: 36 minutes Time spent: Greater than 30 minutes Exam Narrative: AF 97.3 93/77 84 20 93% room air Gen - NARD HEENT - right TM with sclerotic changes. left TM clear. fullness and tenderness left parotid. Chest - occasional expiratory wheeze CV - irregular. Tele showing sinus arrhythmia Abd - Soft, ND, +BS Ext - bilateral AKA Neuro - normal mood Skin - Warm and dry; decrease in bilateral anterior thighs erythema DS: Data Data Completed and Pending Labs on day of discharge: Labs from last
--- NOTE | 2023-12-30 20:24 | PC.NURSE ---
The pt discharged from the campus. Education given. No manifestations of distress noted at the time of exit from the pt room. Central line access site remains clean dry et intact. All belongings packed et removed per pt et family. Education given to call for staff to escort to private vehicle one dressed. Upon returning to the unit ( care coordination/ transferring a pt ) The pt was Transported to private vehicle per per report of annel Meneses RN.
== END 2023-12-30 19:30 | disposition home or self-care (01) | DRG 871 ==
LOC: ANHED 09:55 → ANHICU 10:22 → ANHIMU 12-29 13:42
PROVIDERS: Internal Medicine; Admitting Provider General Practice; Emergency Provider Emergency Medicine; PCP Family Medicine; Visit Provider Internal Medicine
DX: A41.9 Sepsis, unspecified organism (principal); I50.33 Acute on chronic diastolic (congestive) heart failure; J18.9 Pneumonia, unspecified organism; J96.20 Acute and chronic respiratory failure, unspecified whether with hypoxia or hypercapnia; J44.1 Chronic obstructive pulmonary disease with (acute) exacerbation; I42.9 Cardiomyopathy, unspecified; L03.115 Cellulitis of right lower limb; I13.0 Hypertensive heart and chronic kidney disease with heart failure and stage 1 through stage 4 chronic kidney disease, or unspecified chronic kidney disease; N18.30 Chronic kidney disease, stage 3 unspecified; R79.89 Other specified abnormal findings of blood chemistry; I27.20 Pulmonary hypertension, unspecified; I73.9 Peripheral vascular disease, unspecified; E03.9 Hypothyroidism, unspecified; F32.A Depression, unspecified; Z20.822 Contact with and (suspected) exposure to COVID-19; Z86.73 Personal history of transient ischemic attack (TIA), and cerebral infarction without residual deficits; Z79.82 Long term (current) use of aspirin; Z87.891 Personal history of nicotine dependence; Z89.612 Acquired absence of left leg above knee; Z89.611 Acquired absence of right leg above knee
CPT/HCPCS: 36415; 36556; 36600; 70450; 71045; 71250; 76882; 80048; 80053; 81001; 82140; 82375; 82607; 82728; 82746; 82805; 82948; 83050; 83540; 83550; 83605; 83690; 83735; 83880; 84145; 84478; 84484; 85025; 85610; 85730; 86140; 87040; 87070; 87205; 87637; 87641; 93005; 94002; 94003; 94640; 96365; 96366; 96367; 96368; 96375; 97165; 97530; 99285; A9270; C1751; C9113; G0378; J0692; J1650; J1836; J1940; J2250; J2704; J2930; J3010; J3370; J3480; J7030; J7512; P9047

== ENCOUNTER 2024-02-04 07:02 | Inpatient (IN) | payer OTHER, SELFPAY ==
[2024-02-04] VITALS (38 sets, daily range): BP systolic 120–182; BP diastolic 50–166; PULSE 70–137; RESP 13–31; TEMP 36.4–36.6; O2SAT 76–100; BMI 26.3
--- NOTE | ~2024-02-04 | CT_ITS ---
EXAMINATION: CT brain wo con DATE: 02/05/2024 09:44 INDICATION: Transient alteration of awareness. TECHNIQUE: Computed tomography (CT) of the head was performed without intravenous contrast. The mA wa s adjusted according to patient size. Iterative reconstruction technique was employed. The dose-lengt h product was 681.00 mGy-cm. COMPARISON: Head CT 12/26/2023 FINDINGS: There is an old infarct involving right parietal and occipital lobes. There are old infarct s involving the bilateral basal ganglia. There are scattered areas of low attenuation in the cerebral white matter. There is no intracranial hemorrhage, acute infarction, or abnormal intracranial mass l esion. There is ex vacuo dilatation of trigone of right lateral ventricle. There are likely changes o f ocular lens replacement surgeries. There is mild mucosal thickening in the ethmoid sinuses. There a re bilateral mastoid effusions. IMPRESSION: 1. Old infarcts involving the right parietal and occipital lobes and bilateral basal ganglia. 2. Stable moderate nonspecific cerebral white matter disease, which likely represents chronic small v essel ischemic disease. Reviewed, dictated and finalized at location A. IMPRESSION: 1. Old infarcts involving the right parietal and occipital lobes and bilateral basal ganglia. 2. Stable moderate nonspecific cerebral white matter disease, which likely repr esents chronic small vessel ischemic disease.
--- NOTE | ~2024-02-04 | CT_ITS ---
EXAMINATION: CT soft tissue neck w con DATE: 02/05/2024 09:45 INDICATION: Painful lump in the left submandibular space. TECHNIQUE: Computed tomography (CT) of the neck was performed with 75 mL Omnipaque-350 intravenous co ntrast. Automated exposure control and iterative reconstruction technique were employed. The dose-tianna gth product was 547.39 mGy-cm. COMPARISON: None FINDINGS: There are likely changes of ocular lens replacement surgeries. There are bilateral mastoid effusions. There is a mass involving the tongue centered on the left measuring 5.5 x 3.7 cm. There ar e necrotic left high internal jugular chain lymph nodes and bilateral submandibular lymph nodes. A le ft mid internal jugular chain lymph node measures 14 x 11 mm. There is a 12 x 15 mm right paratrachea l lymph node. There is calcified atherosclerosis of the aorta and many of the other arteries. There i s total occlusion of right common carotid artery. There is reconstitution of flow in cervical right i nternal carotid artery from external carotid artery collaterals. The contrast column in right interna l carotid artery is thin. There is severe cervical spondylosis. IMPRESSION: 1. Mass in the tongue, likely squamous cell carcinoma. 2. Cervical lymphadenopathy, consistent with metastatic disease. A mildly enlarged right paratracheal lymph node is indeterminate for metastatic disease. 3. 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 Reviewed, dictated and finalized at location A. IMPRESSION: 1. Mass in the tongue, likely squamous cell carcinoma. 2. Cervical lymphadenopathy, consistent with metastatic disease. A mildly enlar ged right paratracheal lymph node is indeterminate for metastatic disease. 3. 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
--- NOTE | ~2024-02-04 | XR_ITS ---
XR chest 1V portable DATE: 02/04/2024 07:57 INDICATION: Shortness of breath TECHNIQUE: Portable AP views on February 04, 2024 at 0753 hours COMPARISON: 12/30/2023 portable AP chest at 0524 hours FINDINGS: Coronary artery calcifications and prominent aortic arch calcification. There is discoid atelectasis and/or scarring in both lower lung barakat. Otherwise no pulmonary infi ltrate or consolidation, pulmonary vascular congestion or pleural effusion is noted. No pneumothorax . IMPRESSION: Discoid atelectasis and/or scarring in both lower lung zones Reviewed, dictated and finalized at location A.
--- NOTE | 2024-02-04 07:10 | ED.GENADULT ---
HPI - General Adult General Chief complaint: Shortness of Breath/Dyspnea Stated complaint: SOB on CPAP History of Present Illness HPI narrative: 63-year-old female with history of chronic obstructive pulmonary disease, moderate pulmonary hypertension, grade 1 diastolic dysfunction, hypertension, chronic kidney disease, stroke, peripheral vascular disease status post bilateral [id number] amputations, MRSA infection, hypothyroidism presenting to the emergency department for evaluation for hypoxia. Patient is on oxygen at night by nasal cannula patient took off her oxygen last night. Patient found her this morning with oxygen saturations in the 60s. They tried to put her oxygen back on but patient did not improve. Patient arrived to the emergency department CPAP. Patient did have a tongue biopsy on 23 of January. Patient does have outpatient follow-up with Oncology on February 11. Patient was diagnosed with squamous cell carcinoma of the tongue. Related Data Home Medications Medication Instructions Recorded Confirmed atorvastatin 80 mg tablet 80 mg PO HS 08/19/22 02/04/24 folic acid 1 mg tablet 1 mg PO DAILY 08/19/22 02/04/24 gabapentin 300 mg capsule 600 mg PO Q12H 08/19/22 02/04/24 levothyroxine 50 mcg tablet 50 mcg PO 0600 08/19/22 02/04/24 aripiprazole 5 mg tablet 5 mg PO HS 05/18/23 02/04/24 furosemide 20 mg tablet 40 mg PO DAILY 12/26/23 02/04/24 potassium chloride 10 mEq 10 meq PO BID 12/26/23 02/04/24 capsule,extended release aspirin 81 mg chewable tablet 81 mg PO DAILY 02/04/24 02/04/24 buspirone 10 mg tablet 10 mg PO BID PRN Anxiety 02/04/24 02/04/24 diltiazem HCl 240 mg 480 mg PO DAILY 02/04/24 02/04/24 capsule,extended release 24 hr diphenhydramine HCl 12.5 mg/5 mL 12.5 mg PO PRN PRN Mouth Pain 02/04/24 02/04/24 oral liquid oxycodone 5 mg tablet 5 mg PO Q8H PRN Pain 02/04/24 02/04/24 Allergies Allergy/AdvReac Type Severity Reaction Status Date / Time No Known Allergies Allergy Verified 02/04/24 07:15 Review of Systems Review of Systems: All systems reviewed & are unremarkable except as noted in HPI and below PMFSH Past Medical History Medical History Anemia C. difficile diarrhea Cardiomyopathy Chronic kidney disease, stage 3 Chronic obstructive pulmonary disease Depression Diastolic dysfunction Hypothyroidism MRSA infection Oral cancer Peripheral vascular disease Pulmonary hypertension Stroke Surgical History Surgical History History of colonoscopy with polypectomy History of hysterectomy History of left above knee amputation History of right above knee amputation History of tubal ligation Status post femoral-popliteal bypass surgery Family History Family History Father Chronic obstructive pulmonary disease Social History Social History Social History: Surrogate medical decision maker: Vicente Plata, spouse. Code status: Full code. Smoking packs per day: 2 Smoking cigarettes per day: 40.0 Years smoked: 43 Smoking pack-years: 86.00 Smoking status: Former smoker Second hand tobacco smoke exposure: No Alcohol intake: never Substance use: never Substance use type: marijuana Other substance usage details: marijuana edibles about twice a week to help manage phantom pain. Do You Feel Safe in your Home?: Yes Lack of Transportation: No Lack of Food: Never True Current Housing: I Have Housing Concerned About Future Housing: No Difficulty Paying Gas/Electric Bills: No Difficulty Paying for Meds: No Currently Unemployed: No Education: High School Diploma/GED Difficulty w/ Childcare or Family Care: No Additional living arrangements comments: Lives with spouse in [place]. Additional occupation/education comments: Home
--- NOTE | 2024-02-04 07:35 | ECG_ITS ---
Measurements Intervals [place] Rate: 116 P: 76 KS: 168 QRS: 41 QRSD: 80 T: 44 QT: 305 AVG RR: 514 QTc: 374 QTCB: 425 QTCF: 380 Interpretive Statements SINUS TACHYCARDIA NONSPECIFIC ST & T-WAVE ABNORMALITY ABNORMAL ECG SEE SCANNED COPY FOR SIGNATURE MTDD
[2024-02-04 07:39] LABS: Basophils Absolute Auto 0.1 K/mm3 (0.0-0.1); Basophils Percent Auto 0.6 % (0.2-1.2); Eosinophils Absolute Auto 0.4 K/mm3 (0-0.3); Eosinophils Percent Auto 1.6 % (0-4.4); Hematocrit 39.3 % (37.0-47.0); Hemoglobin 12.1 g/dL (12.0-15.0); Immature Granulocyte Percent A 0.8 % (0-0.5); Lymphocytes Absolute Auto 1.81 K/mm3 (0.9-3.2); Lymphocytes Percent Auto 7.7 % (18.3-44.2); Mean Corpuscular HGB Conc 30.8 g/dl (32-36); Mean Corpuscular Hemoglobin 31.6 pg (26-34); Mean Corpuscular Volume 102.6 fl (80-100); Mean Platelet Volume 8.7 fl (7.4-10.4); Monocytes Absolute Auto 1.7 K/mm3 (0.1-0.6); Monocytes Percent Auto 7.3 % (2.6-8.5); Neutrophils Absolute Auto 19.4 K/mm3 (1.3-6.7); Platelet Count Result 511 k/mm3 (150-375); Red Blood Count 3.83 M/mm3 (4.2-5.4); Red Cell Distribution Width 14.8 % (11.5-14.5); White Blood Count 23.6 K/mm3 (4.5-10.0)
[2024-02-04 07:49] LABS: Alanine Aminotransferase 30 U/L (6-35); Alkaline Phosphatase 83 U/L (38-126); Anion Gap 6 mmol/L (4-12); Aspartate Amino Transferase 37 U/L (14-36); Bilirubin,Total 0.6 mg/dL (0.2-1.3); Blood Urea Nitrogen 12 mg/dL (7-17); Calcium 9.7 mg/dL (8.4-10.2); Carbon Dioxide 31 mmol/L (22-30); Chloride 93 mmol/L (98-107); Estimated CRCL calculation 37 ml/min; Estimated Glomerular Filt Rate 46; Glucose 133 mg/dL (65-110); Potassium 4.1 mmol/L (3.4-5.0); Sodium 130 mmol/L (137-145)
[2024-02-04 07:51] LABS: Fractional Inspired Oxygen 40 %; HCO3 ABG 32.6 mEq/l (22.0-26.0); Methemoglobin ABG 0.3 %THb (0-1.5); Oxygen Content ABG 14.8 %vol (16.0-22.0); PO2 ABG 56.2 mmHg (80.0-100.0); Reduced Hemoglobin 13.7 %THb (0-5.0); Total Hemoglobin 12.4 g/dL (12.0-18.0); pH ABG 7.334 (7.350-7.450)
[2024-02-04 07:54] LABS: Oxygen Saturation ABG 86.5 % (95.0-100.0); PCO2 ABG 62.6 mmHg (35.0-45.0)
[2024-02-04 07:55] LABS: Site Drawn RIGHT BRACHIAL
[2024-02-04 07:56] LABS: Device NON-INVASIVE VENT; Non-Invasive Expiratory Pressure 6 CMH2O; Non-Invasive Inspiratory Pressure 12 CMH2O; Non-Invasive Vent Rate 12 /MIN
[2024-02-04 07:57] LABS: NT Pro B Type Natriuretic Pept 517 pg/mL (19.9-100)
[2024-02-04 08:26] LABS: Prothrombin Time 13.4 Seconds (11.1-14.7)
[2024-02-04 08:27] LABS: Partial Thromboplastin Time 31.3 Seconds (22.3-36.8)
[2024-02-04] MEDS: VANCOMYCIN 1,750 MG/NS 500 ML 1,750 MG/500 ML BAG 250 MG IVPB (08:55)
[2024-02-04] MEDS: methylPREDNISolone SOD SUCC 125 MG VIAL IV PUSH (08:56)
[2024-02-04 09:51] LABS: MRSA (PCR) NOT DETECTED (NOT DETECTE)
--- NOTE | 2024-02-04 12:29 | ADMGEN ---
This patient, Pamela Plata, was admitted to IMU Room 200-01 at 1122. Patient/family oriented to hospital policies and general routines including ID bracelet, bed and alarms, visiting hours, pain management, procedures, bathroom and other care routines, personal items, smoking policy, room service/diet, and visiting hours. Information on how to activate the Rapid Response Team has been discussed. Patient/Family are encouraged to report perceived risks to care and to ask questions if they do not understand what they are told or what they should do.
[2024-02-04] MEDS: ALBUTEROL SULFATE NEB 2.5 MG/3 ML INH INHALATION ×2 (13:41→19:54)
--- NOTE | 2024-02-04 14:06 | PM.IMHP ---
H&P: HPI History of Present Illness Date/Time: 02/04/24 14:00 Chief Complaint: Confusion and shortness of breath. Narrative: This is a 63-year-old female with history of chronic obstructive pulmonary disease, chronic respiratory failure on 2 L at nighttime, moderate pulmonary hypertension, grade 1 diastolic dysfunction, hypertension, chronic kidney disease, stroke, peripheral vascular disease status post bilateral fhlrs-xbr-oqai amputations, MRSA infection, hypothyroidism, recent diagnosis of oral cancer though not yet seen by Oncology (upcoming appointment with Dr. Moncho Cordoba at [facility] on 02/12/2024), and other comorbidities who presented to the emergency department for evaluation of confusion and shortness of breath. History is obtained from the patient and her . She is known to myself and the hospitalist service from several admissions over the years with her most recent admission being at the end of November 2023 with acute on chronic respiratory failure secondary to COPD exacerbation, pulmonary edema and/or pneumonia requiring mechanical ventilation. This morning her found her without her oxygen on and minimally responsive. Apparently it is not unusual for her to remove her oxygen during the middle of the night and he frequently finds her SpO2 in the 60s while she is sleeping. He called 911 and on EMS arrival she was started on CPAP and became more arousable shortly thereafter. She was transitioned to BiPAP in the ED after ABG showed worsening CO2 retention from baseline (she has never had a formal outpatient sleep studies and does not use PAP therapy at nighttime). Chest x-ray was without acute findings and her labs were pretty comparable to her baseline. She is being admitted in this setting with acute on chronic respiratory failure. At the time my evaluation she is alert and oriented is being taken off of the BiPAP so she can eat. She reports that she has not been eating well since her tongue biopsy several weeks ago. She complains of pain and burning at the site for which she has been using a Magic mouthwash of sorts. She has some pain on the left side of her neck under the jaw with swallowing but denies choking episodes and concerns for aspiration. She has also been complaining of a headache on the left side for a couple of days. She denies fever, chills, sweats, sinus congestion, sore throat, productive cough, chest pain, pleuritic pain, vomiting, diarrhea, and dysuria. No focal weakness, facial droop, difficulty speaking, or paresthesias. Review of Systems Review of Systems: 12 systems were reviewed and are negative except for as per HPI. [facility] Past Medical History Medical History Anemia C. difficile diarrhea Cardiomyopathy Chronic kidney disease, stage 3 Chronic obstructive pulmonary disease Depression Diastolic dysfunction Hypothyroidism MRSA infection Oral cancer Peripheral vascular disease Pulmonary hypertension Stroke Surgical History Surgical History History of colonoscopy with polypectomy History of hysterectomy History of left above knee amputation History of right above knee amputation History of tubal ligation Status post femoral-popliteal bypass surgery Family History Family History Father Chronic obstructive pulmonary disease Social History Social History Social History: Surrogate medical decision maker: Vicente Plata, spouse. Code status: Full code. Smoking packs per day: 2 Smoking cigarettes per day: 40.0 Years smoked: 43 Smoking pack-years: 86.00 Smoking status: Former smoker Second hand tobacco smoke exposure: No Alcohol intake: never Substance use: never Substance use type: marijuana Other substance usage details: marijuana edibles about twi
[2024-02-04] MEDS: methylPREDNISolone SOD SUCC 125 MG VIAL 60 MG IV PUSH ×2 (14:25→20:54)
[2024-02-04 16:46] LABS: Blood Urea Nitrogen 14 mg/dL (7-17); CRP 5.8 mg/dL (<1.0); Calcium 9.9 mg/dL (8.4-10.2); Carbon Dioxide 31 mmol/L (22-30); Estimated CRCL calculation 35 ml/min; Estimated Glomerular Filt Rate 42; Glucose 212 mg/dL (65-110); Magnesium 2.3 mg/dL (1.6-2.3)
[2024-02-04 16:47] LABS: Influenza A QL RT-PCR Negative (Negative); Influenza B QL RT-PCR Negative (Negative); SARS-CoV-2 RNA PCR Negative (Negative)
[2024-02-04 16:53] LABS: Anion Gap 7 mmol/L (4-12); Chloride 97 mmol/L (98-107); Potassium 3.9 mmol/L (3.4-5.0); Sodium 135 mmol/L (137-145)
[2024-02-04 16:58] LABS: Procalcitonin 0.3 ng/mL
[2024-02-04 17:12] LABS: Thyroid Stimulating Hormone Reflex 0.114 uIU/mL (0.465-4.68)
[2024-02-04 18:11] LABS: Appearance Urine Clear (Clear); Bacteria Urine None Seen /hpf; Bilirubin Urine Negative (Negative); Blood Urine Negative (Negative); Color Urine Yellow (Yellow); Glucose Urine UA 3+ mg/dL (Negative); Ketones Urine Negative (Negative); Leukocyte Esterase Ur Negative LEU/UL (Negative); Nitrate Urine Negative (Negative); Non Pathogenic Casts 0-2; Protein Urine 1+ mg/dL (Negative); RBC Urine 0-2 /hpf (0-2); Specific Grav Ur 1.017 (1.001-1.035); Squamous Epithelial Cell Urine Occasional /hpf (Few); Urobilinogen Urine 0.2 mg/dL (<2.0); WBC Urine 0-5 /hpf (0-3)
[2024-02-04 18:15] LABS: Add Urine Microscopic? YES
[2024-02-04 18:22] LABS: Creatinine Urine 82.9 mg/dL
[2024-02-04 18:23] LABS: Sodium Urine Random 7 meq/L
[2024-02-04 18:25] LABS: Amphetamine Screen Urine Negative (Negative); Barbiturate Screen Urine Negative (Negative); Benzodiazepines Screen Urine Negative (Negative); Cannabinoid Screen Urine Positive (Negative); Cocaine Screen Urine Negative (Negative); Methadone Screen Urine Negative (Negative); Opiate Screen Urine Positive (Negative); Phencyclidine Screen Urine Negative (Negative)
[2024-02-04 18:41] LABS: PCO2 VBG 61.3 mmHg (42.0-48.0); PO2 VBG 38.7 mmHg (35.0-45.0); pH VBG 7.326 (7.300-7.400)
[2024-02-04 18:42] LABS: Device NON-INVASIVE VENT; Fractional Inspired Oxygen 50 %; HCO3 VBG 31.3 mEq/l (24.0-30.0); Non-Invasive Expiratory Pressure 6 CMH2O; Non-Invasive Inspiratory Pressure 12 CMH2O; Non-Invasive Vent Rate 12 /MIN
[2024-02-04 18:59] LABS: Free T4 Free Thyroxine Reflex 1.71 ng/dL (0.78-2.19)
[2024-02-04] MEDS: IPRATROPIUM BR 0.02% INH SOLN 0.5 MG/2.5 ML VIAL INHALATION (19:54)
[2024-02-04] MEDS: GABAPENTIN 300 MG CAPSULE 600 MG PO (20:54)
[2024-02-04] MEDS: POTASSIUM CHLORIDE 10 MEQ ER TABLET PO (20:55)
[2024-02-04] MEDS: ARIPiprazole 5 MG TABLET PO (20:55)
[2024-02-04] MEDS: ATORVASTATIN 40 MG TABLET 80 MG PO (20:55)
[2024-02-04 22:36] LABS: Total Triiodothyronine (T3) 1.21 NG/ML (0.97-1.69)
[2024-02-05] VITALS (24 sets, daily range): BP systolic 85–148; BP diastolic 45–65; PULSE 59–109; RESP 16–22; TEMP 36.4–36.7; O2SAT 91–100
[2024-02-05] MEDS: ALBUTEROL SULFATE NEB 2.5 MG/3 ML INH INHALATION ×2 (02:34→20:34)
[2024-02-05] MEDS: IPRATROPIUM BR 0.02% INH SOLN 0.5 MG/2.5 ML VIAL INHALATION ×2 (02:34→20:34)
[2024-02-05 03:55] LABS: Hematocrit 33.6 % (37.0-47.0); Hemoglobin 10.5 g/dL (12.0-15.0); Mean Corpuscular HGB Conc 31.3 g/dl (32-36); Mean Corpuscular Volume 99.1 fl (80-100); Mean Platelet Volume 8.4 fl (7.4-10.4); Platelet Count Result 495 k/mm3 (150-375); Red Blood Count 3.39 M/mm3 (4.2-5.4); Red Cell Distribution Width 14.4 % (11.5-14.5); White Blood Count 14.6 K/mm3 (4.5-10.0)
[2024-02-05 04:06] LABS: Anion Gap 8 mmol/L (4-12); Blood Urea Nitrogen 16 mg/dL (7-17); Calcium 9.7 mg/dL (8.4-10.2); Carbon Dioxide 30 mmol/L (22-30); Chloride 97 mmol/L (98-107); Estimated CRCL calculation 41 ml/min; Estimated Glomerular Filt Rate 50; Glucose 235 mg/dL (65-110); Potassium 3.4 mmol/L (3.4-5.0); Sodium 135 mmol/L (137-145)
--- NOTE | 2024-02-05 06:00 | PC.NURSE ---
0530: RN called to bedside by CCT. Patient woke up angry and wanting her BiPap off. RN explained to patient the necessity of the BiPap. RN told the patient we could take the BiPap off after her ABG. Patient agreed. 0540: RN called to bedside by RT. Patient is angry and refusing ABG. RN went to bedside and discussed the procedure with her. The patient is adamant that she wants to go home and doesn't want any further care. RN assessed the patient for orientation. Patient was found to be alert and oriented x 4. RN informed RT to triston the ABG as refused. RN discussed the potential consequences of not receiving care but reiterated that she has the right to refuse. RN removed the patients' BiPap and replaced it with 2LNC. 0555: RN returned to bedside to bring patients' coffee. Patient stated that she would allow us to take her ABG. RN called to inform RT. RN will go to bedside with RT to assist in getting ABG.
[2024-02-05 06:29] LABS: Alveolar/Arterial O2 Gradient 83.6 mmHg; Base Excess ABG 0.2 mEq/l (+/-2.0); Fractional Inspired Oxygen 28 %; HCO3 ABG 24.9 mEq/l (22.0-26.0); Oxygen Content ABG 17.2 %vol (16.0-22.0); Oxygen Saturation ABG 93.7 % (95.0-100.0); Oxyhemoglobin 92.5 % THb (90.0-100.0); PCO2 ABG 40.7 mmHg (35.0-45.0); PO2 FiO2 Ratio Arterial Blood 2.43 %; Total Hemoglobin 13.2 g/dL (12.0-18.0); pH ABG 7.405 (7.350-7.450)
[2024-02-05 06:30] LABS: Device NASAL CANNULA; Modified Allen's Test Pass; Site Drawn RIGHT RADIAL
[2024-02-05] MEDS: ENOXAPARIN 40 MG/0.4 ML SYRINGE SUB-Q (08:36)
[2024-02-05] MEDS: dilTIAZem HCL CD 240 MG CAP.24HR 480 MG PO (08:37)
[2024-02-05] MEDS: predniSONE 20 MG TABLET 40 MG PO (08:37)
[2024-02-05] MEDS: FUROSEMIDE 40 MG TABLET PO (08:37)
[2024-02-05] MEDS: ASPIRIN 81 MG CHEWABLE TABLET PO (08:37)
[2024-02-05] MEDS: FOLIC ACID 1 MG TABLET PO (08:37)
[2024-02-05] MEDS: GABAPENTIN 300 MG CAPSULE 600 MG PO ×2 (08:37→21:02)
[2024-02-05] MEDS: POTASSIUM CHLORIDE 10 MEQ ER TABLET PO ×2 (08:37→18:06)
[2024-02-05] MEDS: EMPAGLIFLOZIN 10 MG TABLET PO (08:37)
[2024-02-05] MEDS: diphenhydrAMINE HCL ELIXIR 12.5 MG/5 ML UDC PO ×2 (08:46→21:02)
--- NOTE | 2024-02-05 11:25 | PM.IMPN ---
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 currently on 2 L nocturnal O2 - patient will need formal sleep study - will try to minimize use of oxycodone, held oxycodone - prednisone 40 mg daily if clinical tomorrow may discontinue # oral cancer - recently diagnosed, planned establish care with Dr. Moncho Casas at [facility] on Monday02/12/24 - head CT shows old infarcts, chronic small-vessel ischemic disease. neck CT scan shows occlusion of right common carotid artery however there are collaterals into the internal carotid artery - cervical lymphadenopathy concerning for metastatic disease enlarged right paratracheal lymph node. On physical exam patient has left submandibular lymphadenopathy # leukocytosis - likely secondary to malignancy, leukocytosis downtrended on vancomycin, will continue IV vancomycin antibiotic for now. no purulence or foci of infection identified # chronic conditions - hypothyroidism: Synthroid - peripheral neuropathy: Gabapentin - congestive heart failure: Lasix, Jardiance, diltiazem - hyperlipidemia: Lipitor, aspirin - anxiety: BusPar, Abilify Diet: heart healthy DVT prophylaxis: lovenox Code status: full code Disposition: Likely home tomorrow, overnight pulse ox tonight Time Spent With Patient Time: 35 minutes Subjective Date/time seen: 02/05/24 11:25 Interval history: Patient seen and examined. Her confusion appears to have improved. She normally is on 2 L oxygen by nasal cannula at night, we will do an overnight pulse ox test tonight. I explained that we need to minimize opiate use, and maybe she is getting too sedated. patient has outpatient follow-up with Oncology on Monday. anticipate discharge tomorrow, downgrade from IMU to [facility] today. Review of Systems Review of Systems: 10 point ROS complete, negative other than what is specified in HPI. Exam Narrative: - GENERAL: No acute distress. Well-nourished. - EYES: EOMI. Anicteric. - HENT: Moist mucous membranes. large lesion left side of tongue, no purulence seen. Patient has clear saliva. lungs are clear to auscultation - LUNGS: Clear to auscultation bilaterally, no wheezing, rhonchi, or rales. - CARDIOVASCULAR: Regular rate and rhythm. No murmur. No JVD. - ABDOMEN: Soft, non-tender and non-distended. No palpable masses. - EXTREMITIES: No edema. Peripheral pulses 2+. Non-tender. - NEUROLOGIC: No focal neurological deficits. CN II-XII grossly intact. by sounds altered from the lesion mouth otherwise is mentating well - PSYCHIATRIC: Awake, Alert and oriented x 3. Appropriate mood and affect. - SKIN: No rashes or lesions. Warm. - LYMPH: No cervical lymphadenopathy. Objective Data Vital Signs Vital Signs: Vital Signs - 24 hr 02/04/24 11:30 02/04/24 11:45 02/04/24 13:39 Temperature 36.6 C Pulse Rate 95 102 H 70 Respiratory Rate 17 20 23 H Blood Pressure 144/50 H Pulse Oximetry 98 96 99 Oxygen Delivery BiPAP BiPAP Oxygen Flow Rate Fraction of Inspired Oxygen 02/04/24 13:42 02/04/24 15:23 02/04/24 14:00 Temperature 36.5 C Pulse Rate 70 79 80 Respiratory Rate 21 H 18 Blood Pressure 149/75 H Pulse Oximetry 100 Oxygen Delivery Oxygen Flow Rate Fraction of Inspired Oxygen 02/04/24 16:00 02/04/24 13:00 02/04/24 16:00 Temperature Pulse Rate 78 Respiratory Rate Blood Pressure Pulse Oximetry 92 94 Oxygen Delivery BiPAP BiPAP Oxyg
[2024-02-05] MEDS: ATORVASTATIN 40 MG TABLET 80 MG PO (21:02)
[2024-02-05] MEDS: ARIPiprazole 5 MG TABLET PO (21:02)
[2024-02-05] MEDS: VANCOMYCIN 1,250 MG/NS 250 ML 1,250 MG/250 ML BAG 166.67 MG IVPB (21:04)
[2024-02-05] MEDS: traMADol HCL (*CRX) 50 MG TABLET PO (21:08)
--- NOTE | 2024-02-05 22:37 | PC.NURSE ---
RECEIVED PT FROM IMU PER BED. VOICES NO C/O AT PRESENT. AT BEDSIDE.
[2024-02-06] VITALS (10 sets, daily range): BP systolic 125–149; BP diastolic 37–51; PULSE 56–80; RESP 15–18; TEMP 35.9–36.7; O2SAT 96–99
[2024-02-06] MEDS: oxyCODONE HCL (*CRX) 5 MG TAB IR PO (05:14)
[2024-02-06] MEDS: LEVOTHYROXINE SODIUM 50 MCG TABLET PO (05:15)
[2024-02-06] MEDS: IPRATROPIUM 0.5 MG/ALBUTEROL SULFATE 2.5 MG AMPUL.NEB 3 ML INHALATION (07:20)
--- NOTE | 2024-02-06 08:30 | PC.NURSE ---
Laboratory went in to pt's room to try to draw labs for the second time, and pt refused. Provider aware.
[2024-02-06] MEDS: predniSONE 20 MG TABLET 40 MG PO (09:13)
[2024-02-06] MEDS: ASPIRIN 81 MG CHEWABLE TABLET PO (09:15)
[2024-02-06] MEDS: dilTIAZem HCL CD 240 MG CAP.24HR 480 MG PO (09:16)
[2024-02-06] MEDS: FUROSEMIDE 40 MG TABLET PO (09:18)
[2024-02-06] MEDS: POTASSIUM CHLORIDE 10 MEQ ER TABLET PO (09:19)
[2024-02-06] MEDS: GABAPENTIN 300 MG CAPSULE 600 MG PO (09:21)
[2024-02-06] MEDS: FOLIC ACID 1 MG TABLET PO (09:24)
[2024-02-06] MEDS: EMPAGLIFLOZIN 10 MG TABLET PO (09:25)
[2024-02-06] MEDS: ENOXAPARIN 40 MG/0.4 ML SYRINGE SUB-Q (09:25)
--- NOTE | 2024-02-06 11:53 | PM.DS ---
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 acute encephalopathy secondary to hypoxic, resolved - mentation improved back to baseline - apnea link completed, will continue nocturnal 2 L oxygen - patient will need formal sleep study - will try to minimize use of oxycodone,? held oxycodone # oral cancer -? recently diagnosed,? planned establish care with Dr. Moncho Casas at [facility] on Monday02/12/24 -? head CT shows old infarcts, chronic small-vessel ischemic disease.? neck CT scan shows occlusion of right common carotid artery however there are collaterals into the internal? carotid artery - cervical lymphadenopathy concerning for metastatic disease enlarged right paratracheal lymph node.? On physical exam patient has left submandibular lymphadenopathy # leukocytosis -? likely secondary to malignancy # chronic conditions - hypothyroidism: Synthroid - peripheral neuropathy: Gabapentin - congestive heart failure: Lasix, Jardiance, diltiazem - hyperlipidemia: Lipitor, aspirin - anxiety:? BusPar, Abilify Diet:??heart healthy Code status:?full code Disposition: home DS: Summary Hospital Course Reason for hospitalization: confusion, dyspnea Hospital Course: Patient is a 63-year-old female with past history of COPD, chronic respiratory failure with 2 L nocturnal oxygen, moderate pulmonary hypertension, grade 1 diastolic dysfunction, essential hypertension, CKD3b, history of CVA, PVD with bilateral BKA, hypothyroidism, recent diagnosis squamous cell carcinoma tongue presents the ED with complaints of dyspnea. Patient has outpatient appointment with Dr. Moncho Cordoba at [facility] on Monday02/12/24. she was recently hospitalized November 2023 with his COPD exacerbation requiring mechanical ventilation. the morning of admission, patient's found her to be off her oxygen and not very responsive. He is unsure how long she was off the oxygen. She then presented to the ED by EMS. Patient did well with BiPAP supportive care, it is likely that she became somnolent after taking oxycodone close to bedtime. With supportive care patient resumed back to normal mentation. she has been advised to avoid opiates at bedtime. patient has previously been recommended for an outpatient sleep study and she has yet to schedule that. currently her prior days or to deal with her oral cancer. she has been diagnosed with squamous cell carcinoma of left tongue. CT scan of head neck showed some occlusion of the right common carotid artery however there are collaterals feeding into the right internal carotid artery. patient follow-up with her oncologist on Monday. We have done a sleep apnea test called apnea link. patient will continue her home 2 L oxygen via nasal cannula. At time of discharge patient's labs stable, vitals stable, patient is stable for discharge home. no new Rx. Patient to follow with PCP in 1 week, and Oncology on Monday. Patient understands and agrees with plan. Status at Discharge Cognitive/behavioral status at discharge: stable Time Spent with Patient Time attestation: Total time spent providing and/or coordinating discharge services: 35 minutes Exam Narrative: - GENERAL:? pleasant woman - EYES: EOMI. Anicteric. - HENT: Moist mucous membranes.? large lesion left side of tongue, no purulence seen.? Patient has clear saliva - LUNGS: Clear to auscultation bilaterally, no wheezing, rhonchi, or rales. Nonlabored
[2024-02-07 14:38] LABS: Osmolality, Urine 337 mOsm/kg (50-1200)
== END 2024-02-06 13:30 | disposition home or self-care (01) | DRG 189 ==
LOC: ANHED 09:09 → ANHIMU 10:17 → ANH2MED 02-05 22:23
PROVIDERS: Physician Assistant; Admitting Provider Internal Medicine; Emergency Provider Emergency Medicine; PCP Family Medicine; Visit Provider Student in an Organized Health Care Education/Training Program
DX: J96.22 Acute and chronic respiratory failure with hypercapnia (principal); I13.0 Hypertensive heart and chronic kidney disease with heart failure and stage 1 through stage 4 chronic kidney disease, or unspecified chronic kidney disease; I50.32 Chronic diastolic (congestive) heart failure; G93.49 Other encephalopathy; J44.1 Chronic obstructive pulmonary disease with (acute) exacerbation; C77.0 Secondary and unspecified malignant neoplasm of lymph nodes of head, face and neck; C02.9 Malignant neoplasm of tongue, unspecified; J96.21 Acute and chronic respiratory failure with hypoxia; R40.0 Somnolence; T40.2X5A Adverse effect of other opioids, initial encounter; E03.9 Hypothyroidism, unspecified; G62.9 Polyneuropathy, unspecified; E78.5 Hyperlipidemia, unspecified; F41.9 Anxiety disorder, unspecified; D64.9 Anemia, unspecified; I73.9 Peripheral vascular disease, unspecified; D72.828 Other elevated white blood cell count; N18.32 Chronic kidney disease, stage 3b; Z99.81 Dependence on supplemental oxygen; Z86.73 Personal history of transient ischemic attack (TIA), and cerebral infarction without residual deficits; Z89.512 Acquired absence of left leg below knee; Z89.511 Acquired absence of right leg below knee; Z87.891 Personal history of nicotine dependence; Z20.822 Contact with and (suspected) exposure to COVID-19
CPT/HCPCS: 36415; 36600; 70450; 70491; 71045; 80048; 80053; 80307; 81001; 82375; 82570; 82803; 82805; 83050; 83735; 83880; 83930; 83935; 84145; 84300; 84439; 84443; 84480; 85025; 85027; 85610; 85730; 86140; 87040; 87636; 87641; 93005; 94002; 94003; 94640; 94762; 96365; 96366; 96375; 99291; A9270; G0378; J1650; J2919; J3370; J7512; Q9967